=== PATIENT | female | born 1955 | race Asian ===

== ENCOUNTER 2022-03-18 10:17 | Outpatient (CLI) | payer MEDICARE, SELFPAY ==
[2022-03-18 11:00] LABS: Anion Gap 13 mmol/L (8-16); Blood Urea Nitrogen 14 mg/dL (7-17); Calcium 9.9 mg/dL (8.4-10.2); Carbon Dioxide 33 mmol/L (22-30); Chloride 100 mmol/L (98-107); Estimated Glomerular Filt Rate > 60; Glucose 134 mg/dL (65-110); Potassium 4.5 mmol/L (3.4-5.0); Sodium 146 mmol/L (137-145)
== END 2022-03-18 10:18 | disposition home or self-care (01) ==
LOC: ANHSURGERY 10:22
PROVIDERS: Anesthesiology; PCP Internal Medicine; Visit Provider Obstetrics & Gynecology
DX: Z79.899 Other long term (current) drug therapy (principal); Z01.818 Encounter for other preprocedural examination
CPT/HCPCS: 36415; 80048

== ENCOUNTER 2022-03-24 01:53 | Day surgery (SDC) | payer MEDICARE, SELFPAY ==
[2022-03-16 08:27] VITALS: BMI 19.5
--- NOTE | 2022-03-16 08:50 | PC.NURSE ---
PRE-OP INSTRUCTIONS, PLEASE READ CAREFULLY Report to the Outpatient Waiting Room, entrance under the green pavilion located off [facility], at time _0900_ on date _03/24/22_. OR Time: _1100_. - You and your visitor will be asked to self-screen and do not enter if you have any COVID symptoms. - Only one visitor and NO children visitors are allowed at this time. - The patient visitor is requested to leave or wait in car when not with patient due to restrictions. - A mask is required within the hospital. Patients may have clear liquids (water, carbonated beverages, clear teas, apple juice) until 3 hours prior to surgery (0800 AM) with a maximum of 20 ounces. - No food from midnight until time of surgery Take the following medications with a SIP of water the morning of surgery: _EUTHYROX_ Medications to discontinue per physician _VITAMINS AND SUPPLEMENTS 3 DAYS PRIOR TO SURGERY, Date to take last dose 03/20/22_ Please no make-up, nail yoruba, hairspray, perfume, deodorant, or body powder the day of surgery. No jewelry (including any body piercings) or valuables the day of surgery, leave them at home. Please take a shower or bath the night before, or the morning of, surgery with an antibacterial soap. Wear comfortable, loose fitting clothing. - Jewelry must be removed prior to entering the operating room. Rings and piercings that are not removed may be cut off. - The hospital will not accept responsibility for valuables. - Please leave all valuables, including medications, at home the day of surgery. If you are going home after surgery, a licensed dray driver must drive you home. - NO public transportation without another adult. - We recommend that an adult stay with you for 24 hours following discharge. - We also recommend that you do not drive, make important decision, drink alcoholic beverages, or take any drugs that were not prescribed by your health care provider for at least 24 hours after your discharge time. Follow any additional instructions given to you from your surgeon. If you or anyone in your household have experienced Covid symptoms in the past week, please notify your surgeon or the nurse liaison at the phone number below for possible testing. Telephone instructions given to ___PT and asked if any additional questions and then verbalized understanding. Patient advised to call surgeon office or pre surgery nurse liaison [phone] if any additional questions.
--- NOTE | 2022-03-24 08:04 | PM.IMHP ---
H&P: HPI History of Present Illness Date/Time: 03/24/22 08:04 66-year-old female presents for evaluation of thickened endometrial cavity noted on ultrasound. Ultrasound itself was ordered due to enlarged uterus, and incidentally and 7 8mm thickness was noted which was also irregular in texture. She has been on tamoxifen for breast cancer for past 7 years and has had no bleeding. Continued expected management with ultrasounds versus tissue sampling was discussed, and agreed with hysteroscopy and tissue sampling. Chief Complaint: Endometrial hypertrophy on ultrasound Review of Systems Review of Systems: All systems reviewed & are unremarkable except as noted in HPI and below PMFSH Past Medical History Medical History Breast cancer High cholesterol Hypothyroidism Surgical History Surgical History History of mastectomy right breast Family History Family History Father Diabetes mellitus Social History Social History Smoking status: Never smoker Second hand tobacco smoke exposure: No Alcohol intake: never Substance use: never Substance use type: does not use Living arrangements: with family Additional living arrangements comments: Gender identity (if verbalized by the patient): Female Sexual Orientation (if Verbalized by the Patient): Straight or Heterosexual Spiritual care concerns: No Meds Home Medications and Allergies Home Medications Medication Instructions Recorded Confirmed Type aspirin 81 mg tablet,delayed 81 mg PO DAILY 11/08/21 03/16/22 History release denosumab 60 mg/mL subcutaneous 60 mg subcut [id number] 11/08/21 03/16/22 History syringe (Prolia) fenofibrate nanocrystallized 48 mg 48 mg PO DAILY 11/08/21 03/16/22 History tablet levothyroxine 50 mcg tablet 50 mcg PO DAILY 11/08/21 03/16/22 History (Euthyrox) tamoxifen 20 mg tablet 20 mg PO DAILY 11/08/21 03/16/22 History ascorbic acid (vitamin C) 1,000 mg 1 g PO QAM 03/16/22 03/16/22 History tablet (Vitamin C) calcium carbonate 600 mg-vitamin 1 tablet PO DAILY 03/16/22 03/16/22 History D3 5 mcg (200 unit) tablet cholecalciferol (vitamin D3) 50 50 mcg PO QAM 03/16/22 03/16/22 History mcg (2,000 unit) tablet hydrochlorothiazide 25 mg tablet 25 mg QAM 03/16/22 03/16/22 History magnesium 250 mg tablet 250 mg PO EVERY OTHER DAY 03/16/22 03/16/22 History omega 7-dfs-pqa-fish oil 1,000 mg 1 cap PO QAM 03/16/22 03/16/22 History (120 mg-180 mg) capsule (Fish Oil) sodium di- and 1 tablet TID 03/16/22 03/16/22 History monophosphate-potassium phos monobasic 250 mg tablet (Phospha 250 Neutral) Allergies Allergy/AdvReac Type Severity Reaction Status Date / Time No Known Allergies Allergy Unverified 03/16/22 08:16 Exam Const: General: cooperative, healthy appearing and comfortable Resp: Effort & Inspection: normal respiratory effort Auscultation: clear to auscultation bilaterally Cardio: Rate: regular rate Rhythm: regular rhythm GI: Inspection: normal to inspection Auscultation: normal bowel sounds : External Female Exam: normal external appearance Speculum Exam - Vagina: normal appearance of the vagina Speculum Exam - Cervix: normal appearance of the cervix Bimanual exam- vagina & uterus: enlarged (Eight week size) Bimanual Exam- Adnexa, other: normal adnexae Assessment and Plan Assessment and plan (1) Endometrial thickening on ultrasound: Code(s): R93.89 - Abnormal findings on diagnostic imaging of other specified body structures Status: Acute Assessment and Plan: Hysteroscopy with uterine curettings
--- NOTE | 2022-03-24 08:07 | WPDHPUPDATE1 ---
History and Physical Update Update Date/Time: 03/24/22 08:07 History and Physical has been reviewed, including an updated exam of the patient. There are NO changes in the patient's condition. Risks, benefits, and alternatives have been discussed and questions answered. Patient agrees to proceed with procedure.
[2022-03-24 08:57] VITALS: BP 157/73; PULSE 81; RESP 16; TEMP 37.2; O2SAT 100
[2022-03-24] MEDS: ACETAMINOPHEN 500 MG TABLET 1000 MG PO (09:26)
[2022-03-24] MEDS: LACTATED RINGERS 1,000 ML 30 ML IV CONT (09:34)
--- NOTE | 2022-03-24 10:14 | WPDANESEPPF ---
Anes - Initial Pre Proc Eval Procedure: Operation Date: 03/24/22 11:00 Proposed Procedures p Hysteroscopy Dilation and Curettage - Matthieu Daniel MD Date/Time: 03/24/22 10:14 Surgeon: Matthieu Daniel MD Pre Op Diagnosis: Endometrial thickening Patient Data Age: 66 Gender: F Height: 1.6 m Weight: 50.5 kg Last Vital Signs Temp 37.2 C 03/24/22 08:57 Pulse 81 03/24/22 08:57 Resp 16 03/24/22 08:57 BP 157/73 H 03/24/22 08:57 Pulse Ox 100 03/24/22 08:57 O2 Del Method Room Air 03/24/22 08:57 Allergies Allergy/AdvReac Type Severity Reaction Status Date / Time No Known Allergies Allergy Unverified 03/24/22 09:14 Home Medications Medication Instructions Recorded Confirmed Type aspirin 81 mg tablet,delayed 81 mg PO DAILY 11/08/21 03/24/22 History release denosumab 60 mg/mL subcutaneous 60 mg subcut [id number] 11/08/21 03/24/22 History syringe (Prolia) fenofibrate nanocrystallized 48 mg 48 mg PO DAILY 11/08/21 03/24/22 History tablet levothyroxine 50 mcg tablet 50 mcg PO DAILY 11/08/21 03/24/22 History (Euthyrox) tamoxifen 20 mg tablet 20 mg PO DAILY 11/08/21 03/24/22 History ascorbic acid (vitamin C) 1,000 mg 1 g PO QAM 03/16/22 03/24/22 History tablet (Vitamin C) calcium carbonate 600 mg-vitamin 1 tablet PO DAILY 03/16/22 03/24/22 History D3 5 mcg (200 unit) tablet cholecalciferol (vitamin D3) 50 50 mcg PO QAM 03/16/22 03/24/22 History mcg (2,000 unit) tablet hydrochlorothiazide 25 mg tablet 25 mg QAM 03/16/22 03/24/22 History magnesium 250 mg tablet 250 mg PO EVERY OTHER DAY 03/16/22 03/24/22 History omega 1-vtk-tpi-fish oil 1,000 mg 1 cap PO QAM 03/16/22 03/24/22 History (120 mg-180 mg) capsule (Fish Oil) sodium di- and 1 tablet TID 03/16/22 03/24/22 History monophosphate-potassium phos monobasic 250 mg tablet (Phospha 250 Neutral) Patient hx anesthesia problems: none Family hx anesthesia problems: none Results Review: All pre-operative results and documents have been reviewed as part of the pre-operative evaluation. [facility] Past Medical History Medical History Breast cancer High cholesterol Hypothyroidism Surgical History Surgical History History of mastectomy right breast Family History Family History Father Diabetes mellitus Social History Social History Smoking status: Never smoker Second hand tobacco smoke exposure: No Alcohol intake: never Substance use: never Substance use type: does not use Living arrangements: with family Additional living arrangements comments: Gender identity (if verbalized by the patient): Female Sexual Orientation (if Verbalized by the Patient): Straight or Heterosexual Spiritual care concerns: No Anes - Eval Final PreProcedure Day of Procedure 03/24/22 10:14 Patient weight: normal Heart: regular rate and rhythm Lungs: clear to auscultation Airway: Mallampati scale class II Neurological: alert and oriented Last oral intake: >/= 8 hours ASA classification: III Emergent: no Anesthetic plan: proceed Anesthesia type and monitoring: general GIVS and standard monitoring Results Review: All pre-operative results and documents have been reviewed as part of the pre-operative evaluation. Informed Consent: The patient's anesthetic plan and its attendant risks and benefits were discussed with the patient/family/POA. Questions were solicited and answers provided to the satisfaction of the patient/family/POA.
[2022-03-24 10:50] VITALS: BP 142/72; PULSE 85; RESP 14; O2SAT 97
[2022-03-24 11:19] VITALS: BP 153/71; PULSE 75; RESP 16
[2022-03-24 11:42] VITALS: BP 150/71; PULSE 66; RESP 16
[2022-03-24 11:58] VITALS: BP 150/71; PULSE 66; RESP 16
--- NOTE | 2022-03-24 13:24 | W.PM.PROC2 ---
Procedure Note - Detailed Date of Procedure 03/24/22 Pre-op Diagnosis Endometrial thickening Post-op Diagnosis Same Procedure Performed Hysteroscopy with uterine curettings Surgeon Matthieu Daniel MD Anesthesia MAC Findings Vagina atrophic cervix stenotic. Once the scope was placed in the uterine cavity atrophy was noted throughout with small for polyp in the posterior uterine wall noted. Description of Procedure Patient was prepped in usual manner for this procedure. Cervix was dilated though stenotic to allow the hysteroscope to place once this was done atrophic cavity is noted throughout with small polyp on the posterior wall. Curettings were then obtained and the scope was placed with the area of question in the charge account identification clerk her wall removed with the endometrial sampling. At this point the procedure was considered terminated the patient was sent to recovery room in stable condition. Estimated Blood Loss -10.0 Urine Output -200.0 Drains No Packing No Pathology Yes Complications No immediate complications Condition Stable Disposition PACU [facility] Billing Surgery - Charge Forward: Surgery Billing
== END 2022-03-24 12:00 | disposition home or self-care (01) ==
PROVIDERS: PCP Internal Medicine; Visit Provider Obstetrics & Gynecology
PROC: 0U5B8ZZ Destruction of Endometrium, Via Natural or Artificial Opening Endoscopic (ICD-10-PCS; CPT 58563; principal; 2022-03-24 11:00)
DX: N84.0 Polyp of corpus uteri (principal); N88.2 Stricture and stenosis of cervix uteri; Z85.3 Personal history of malignant neoplasm of breast; E03.9 Hypothyroidism, unspecified; E78.00 Pure hypercholesterolemia, unspecified; Z90.11 Acquired absence of right breast and nipple; Z79.82 Long term (current) use of aspirin; Z79.810 Long term (current) use of selective estrogen receptor modulators (SERMs)
CPT/HCPCS: 58558; 36415; 80048; 88305; A9270; J2250; J2704; J3010; J7030; J7120

== ENCOUNTER 2024-08-14 13:46 | Outpatient (CLI) | payer MEDICARE, SELFPAY ==
--- NOTE | ~2024-08-14 | DEXA_ITS ---
Bone Density Report Name: LIZBETH RODRIGUEZ Age: 68 Sex: Female Ethnicity: White Date of : 1955 Indication: postmenopausal; screening for osteoporosis; height loss; cancer; Referring Provider: MUKESH GARCIA Study: Bone densitometry was performed. Exam Date: August 14, 2024 Accession number: [id number] Bone Density: Region BMD T-score Z-score Classification AP Spine(L1-L4) 0.652 -3.6 -1.6 Osteoporosis Femoral Neck (Left) 0.572 -2.5 -0.8 Osteoporosis Total Hip (Left) 0.723 -1.8 -0.4 Osteopenia Femoral Neck (Right) 0.546 -2.7 -1.0 Osteoporosis Total Hip (Right) 0.668 -2.2 -0.8 Osteopenia Total Hip Mean 0.695 -2.0 -0.6 Osteopenia World Health Organization criteria for BMD impression classify patients as: Normal (T-score at or above -1.0), Osteopenia (T-score between -1.0 and -2.5), or Osteoporosis (T-score at or below -2.5). 10-year Fracture Risk: FRAX not reported because: Some T-score for Spine Total or Hip Total or Femoral Neck at or below -2.5 Treated for osteoporosis Clinical Information Provided by Patient: Is being treated for osteoporosis Has used the following medications: Fosamax (i.e. alendronate), Prolia (i.e. denosumab) Has the following medical conditions: Cancer Patient maximum height was 63 Menopause Age: 52 Does not regularly consume dairy products Drinks caffeinated beverages Onset of menses at age 12 Number of children 0 Impression: The patient has osteoporosis, based on the Total Spine T-score. Discussion: It is important to ask patients whether they are taking their medications and to encourage continued and appropriate compliance with their osteoporosis therapies to reduce fracture risk. It is also important to review their risk factors and encourage appropriate calcium and vitamin D intakes, exercise, fall prevention and other lifestyle measures. Follow-Up: Consider a repeat BMD and Vertebral Fracture Assessment (VFA) exam in 2 years or sooner if medically necessary, to reassess this patient's status. Reported by: JACOB on 08/14/2024 2:12:00 PM. Reviewed, dictated and finalized at location [facility]
== END 2024-08-14 13:47 | disposition home or self-care (01) ==
LOC: ANHIMG 13:48
PROVIDERS: PCP Internal Medicine; Visit Provider Internal Medicine
DX: M81.0 Age-related osteoporosis without current pathological fracture (principal); M85.89 Other specified disorders of bone density and structure, multiple sites
CPT/HCPCS: 77080

== ENCOUNTER 2024-09-23 10:10 | Outpatient (CLI) | payer MEDICARE, SELFPAY ==
--- NOTE | ~2024-09-23 | XR_ITS ---
3 VIEWS THORACIC SPINE Ordering provider: Gerardo Malin MD History: . M81.0 - Age-related osteoporosis without current patholog... . Comparison: None. FINDINGS: VERTEBRAL BODIES: Normal height and alignment. No visible fracture or subluxation. DISK SPACES: Normal. SOFT TISSUES: Normal. IMPRESSION: No acute osseous abnormality of the thoracic spine. Reviewed, dictated and finalized at location A.
[2024-09-23 11:11] LABS: Alanine Aminotransferase 26 U/L (6-35); Albumin Level 4.6 g/dL (3.5-5.1); Alkaline Phosphatase 47 U/L (38-126); Anion Gap 13 mmol/L (4-12); Aspartate Amino Transferase 27 U/L (14-36); Bilirubin,Total 0.6 mg/dL (0.2-1.3); Blood Urea Nitrogen 12 mg/dL (7-17); Calcium 9.6 mg/dL (8.4-10.2); Carbon Dioxide 26 mmol/L (22-30); Chloride 103 mmol/L (98-107); Estimated Glomerular Filt Rate > 60; Glucose 96 mg/dL (65-110); Phosphorus 3.8 mg/dL (2.5-4.5); Potassium 3.8 mmol/L (3.4-5.0); Sodium 142 mmol/L (137-145)
[2024-09-23 11:22] LABS: Parathyroid Intact 19.9 pg/mL (14.5-75.2)
[2024-09-23 11:26] LABS: Vitamin D 25 Hydroxy 62.3 ng/mL
--- OUTSIDE RECORDS SUMMARY | 2024-09-23 11:54 | XMS_ITS | Clinical Summary ---
Author Organization [facility] Address [address] [place] [address] Care Team Providers Care Watershed Engineer Name Role Phone Rufus Teixeira MD Primary Care Provide r Allergies No known active allergies Medications calcium carbonate-vitamin D3 1,500 mg (600mg elemental) -800 unit per tablet daily. Acti ve timzf-8-gpy-epa-dp a-fish oil 1,050-1,200 mg capsule daily. Active magnesium oxide 500 mg capsule 2 times daily. Active multivitamin tabletIndications: Vitamin Deficiency Prevention daily. Active pravastatin (PRAVACHOL) 20 mg tablet 018 Active vitamin B complex capsule daily. Active ergocalciferol (VITAMIN D) 50,000 unit capsule Take 1 capsule (50,000 Units total) by mouth once a week 12 capsule 019 Active Additional Information Patient not taking.Reported on 09/22/2022 aspirin 81 mg enteric coated tablet daily Active influenza quadrivalent 5789-4032 (FLULAVAL,FLUARIX) 60 mcg (15 mcg x 4)/0.5 mL syringe Fluarix Quad 5678-3533 (PF) 60 mcg (15 mcg x 4)/0.5 mL IM syringe Active hydroCHLOROthiazid e (HYDRODIURIL) 25 mg tablet hydrochlorothiazide 25 mg tablet TAKE 1 TABLET BY MOUTH ONCE DAILY IN THE MORNING FOR 30 DAYS Active levothyroxine (SYNTHROID) 50 mcg tablet levothyroxine 50 mcg tablet TAKE 1 TABLET BY MOUTH ONCE DAILY IN THE MORNING FOR 30 DAYS Active fenofibrate nanocrystallized (TRICOR) 48 mg tablet fenofibrate nanocrystallized 48 mg tablet Active influenza quadrivalent (Flublok Quad , PF,) 180 mcg (45 mcg x 4)/0.5 mL syringe Flublok Quad (PF) 180 mcg (45 mcg x 4)/0.5 mL IM syringe Active vitamin B complex with folic acid tablet Take by mouth 019 Active sodium phosphate - potassium phosphate (K-PHOS NEUTRAL) 250 mg tablet 250 mg 4 (four) times a day Active denosumab (Prolia) 60 mg/mL syringe Inject 1 mL as needed by subcutaneous route in the morning for 1 day. 021 Active ZINC SULFATE ORAL Take 1 capsule every day by oral route. 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, estrogen receptor positive (HCC) Take 1 tablet by mouth once daily 90 tablet 3 024 2024 Discont inued(R eorder) Active Problems Problem Noted Date Diagnosed Date Encounter for follow-up surveillance of breast c ancer 09/21/2022 ER+ (estrogen receptor positive status) 09/22/19 23 Selective estrogen receptor modulator (SERM) adm inistered 09/21/2022 Carcinoma of central portion of right breast in female, estrogen receptor positive 09/21/2015 Surgical History Surgery Date Site/Laterality Comments US UNLISTED PROCEDURE LYMPH SYSTEM 08/25/2015 N/A Family History Relation Name Status Comments Father Mother Social History Tobacco Use Types Packs/Day Years Used Date Smoking Tobacco: Never Smokeless Tobacco: Never Comments Unknown Sex and Gender Information Value Date Recorded Sex Assigned at Not on file Legal Sex Female 7:27 AM MANAGER TEST Gender Identity Not on file Sexual Orientation Not on file Obstetrics History Last Filed Vital Signs Vital Sign Reading Time Taken Comments Blood Pressure 164/91 09/28/2023 2:44 PM CDT Pulse 113 09/28/2023 2:44 PM CDT Temperature 36.5 C (97.7 F) 09/28/2023 2:44 PM CDT Respiratory Rate 18 09/28/2023 2:44 PM CDT Oxygen Saturation 96% 09/28/2023 2:44 PM CDT Inhaled Oxygen Concentration - - Weight 54.3 kg (119 lb 9.6 oz) 09/28/2023 2:44 P M CDT Height 153.8 cm (5' 0.55 ) 09/23/2021 12:[address] Body Mass Index 22.93 09/23/2021 12:50 PM MANAGER TEST Plan of Treatment Health Maintenance Due Date Last Done Comments Colon Cancer Screening-Colonoscopy 1955 Depression Screening 1955 Fall Risk Assessment 1955 DTaP/Tdap/Td Vaccine (1 - Tdap) 12/03/1966 Hepatitis B Screening 12/03/1973 Zoster Vaccine (1 of 2) 12/03/1974 Breast Cancer Screening-Mammogram 07/27/2016 016 Osteoporosis Screening-Bone Density Scan 10/13/2018 10/13/2016 Well Visit 65+ 12/03/2020 Covid-19 Vaccine (3 - Modern a risk series) 08/09/2021 07/12/2021, 10/30/2020, 10/02/2020 Influenza Vaccine (#1) 2024 , 04/18/2021, 05/01/2020, Additional history exists Hepatitis C Screening Completed 08/25/2015 Pneumococcal vaccine 65+ Completed 08/10/2022, 02/14 Procedures Procedure Name Priority Date/Time Associated Diagnosis Comments BONE MINERAL DENSITY 10/13/2016 SERUM HEPATITIS C AB Routine 08/25/2015 7:00 AM MANAGER TEST DIAGNOSTIC MAMMOGRAM BILATERAL W ADIN Routine 07/27/2015 1:39 PM MANAGER TEST from Last 3 Months or Most Recently Relevant to Health Maintenance Results * BONE MINERAL DENSITY (10/13/2016) Anatomical Region Laterality Modality Radiographic Kaci ging Narrative 10/13/2016 Ordered by an unspecified provider. Historical Provider MD HURLEY DXA PROCEDURES Final Result * Serum Hepatitis C ab (08/25/2015 7:00 AM MANAGER TEST) HCV ab Negative NEG HISTORICAL RESULTS Serum 08/25/2015 7:00 AM MANAGER TEST Narrative HISTORICAL RESULTS - 08/26/2015 4:40 AM MANAGER TEST Interpretive Data If confirmation is required, call Laboratory Customer Service to request sample to be sent to [facility] for Hepatitis C Virus (HCV) RNA Detection and Quantitation by Real-Time Reverse Fabricator Special Items-PCR (RT-PCR). Current interpretive data was last revised on 2011 Historical Provider LAB BLOOD ORDERABLES Graciela l Result HISTORICAL RESULTS * Diagnostic Mammogram Bilateral W Adin (07/27/2015 1:39 PM MANAGER TEST) Anatomical Region Laterality Modality Breast Bilateral Mammography 07/27/2015 1:39 PM MANAGER TEST Narrative 07/27/2015 3:25 PM MANAGER TEST ZAINAB SHARIF M.D. DM CHRISTINA, FINAL REPORT The radiology attending physician has personally reviewed this study, and has reviewed and/or edited this written report and agrees with it. ACC# Date Time Exam [id number] Jul 27, 2015 13:39:00 [facility] [address] Diag Mammogram Bilateral Technologist(s): Aretha Massey; ; [id number] Jul 27, 2015 13:48:00 [facility] 61714 Breast US unilateral, ltd R [id number] Jul 27, 2015 13:39:00 [facility] 51865 Dig Breast Adin Angelo ACC# Date Time Exam [id number] Jul 27, 2015 13:39:00 [facility] 24443 Diag Mammogram Bilateral Technologist(s): Aretha Massey; ; [id number] Jul 27, 2015 13:48:00 [facility] [address]4501 Breast US unilateral, ltd R [id number] Jul 27, 2015 13:39:00 [facility] 89915 Dig Breast Adin Angelo EXAMINATION: BILATERAL FULL FIELD DIGITAL DIAGNOSTIC MAMMOGRAM, DIGITAL BILATERAL BREAST TOMOSYNTHESIS, AND RIGHT BREAST SONOGRAM A full field digital mammogram was performed. Computer Aided Detection was performed with [employer] 1.3 version 9.3. HISTORY: 59-year-old woman with a large palpable mass in the right breast with overlying skin discoloration. The mass has been present for over 2 years according to patient. MAMMOGRAM TECHNIQUE: Bilateral full Field digital diagnostic mammogram, digital bilateral breast tomosynthesis. A full field digital mammogram was performed. Computer Aided Detection was performed with [employer] 1.3 version 9.3. COMPARISON: No priors available. BREAST PARENCHYMAL COMPOSITION: The breasts are heterogeneously dense, which may obscure small masses. MAMMOGRAM FINDINGS: There is a >7cm irregular, high-density mass occupying almost the entire upper central right breast. There is associated architectural distortion, extensive fine pleomorphic calcifications and overlying skin thickening. There is no suspicious abnormality identified within the left breast. SONOGRAM FINDINGS: Directed sonogram of the palpable abnormality within the right breast was performed. There is an irregular shaped complex solid mass with both solid and cystic components. A precise measurement is difficult. Approximate size of this mass is 6 x 7 x 7 centimeters with vascular flow identified on color Doppler. There is overlying skin thickening and discoloration. This mass occupies a large volume of the upper half of the right breast. Directed sonogram of the right axilla demonstrates 2 lymph nodes. One of the nodes appears morphologically normal and the other has diffuse cortical thickening < 3mm, which is benign by imaging criteria. However given the size of the primary breast mass the negative predictive value of axillary US is limited. Directed physical examination of the area of concern demonstrates a large hard palpable abnormality which is visible to naked eye. There is skin thickening and discoloration overlying the mass. IMPRESSION: Locally advanced breast cancer with probable skin invasion. Normal axillary lymph nodes by imaging criteria (see discussion above). OVERALL FINAL ASSESSMENT: BI-RADS Category 5: Highly suggestive of malignancy. The above findings and recommendations were discussed with the patient at the conclusion of the examination and were subsequently discussed with the referring physician, Dr. Fani Velez, after completion of the imaging. The patient was returned to Dr. Garcia clinic on completion of the exam, further workup and biopsy to be obtained by the clinical service. :: Requested By: Dictated By: DM CHRISTINA, on Jul 27 2015 2:36P This document has been electronically signed by: ZAINAB SHARIF M.D. on Jul 27 2015 3:25P [id number] Procedure Note Provider, MD Sharla - 11/20/2016 ZAINAB SHARIF M.D. DM CHRISTINA, FINAL REPORT The radiology attending physician has personally reviewed this study, and has reviewed and/or edited this written report and agrees with it. ACC# Date Time Exam [id number] Jul 27, 2015 13:39:00 [facility] [address]2506 Diag Mammogram Bilateral Technologist(s): Aretha Massey; ; [id number] Jul 27, 2015 13:48:00 C 27002 Breast US unilateral, ltd R [id number] Jul 27, 2015 13:39:00 [facility] 11774 Dig Breast Adin Angelo ACC# Date Time Exam [id number] Jul 27, 2015 13:39:00 C 99412 Diag Mammogram Bilateral Technologist(s): Aretha Massey; ; [id number] Jul 27, 2015 13:48:00 C 06322 Breast US unilateral, ltd R [id number] Jul 27, 2015 13:39:00 C 71497 Dig Breast Adin Angelo EXAMINATION: BILATERAL FULL FIELD DIGITAL DIAGNOSTIC MAMMOGRAM, DIGITAL BILATERAL BREAST TOMOSYNTHESIS, AND RIGHT BREAST SONOGRAM A full field digital mammogram was performed. Computer Aided Detection was performed with [employer] 1.3 version 9.3. HISTORY: 59-year-old woman with a large palpable mass in the right breast with overlying skin discoloration. The mass has been present for over 2 years according to patient. MAMMOGRAM TECHNIQUE: Bilateral full Field digital diagnostic mammogram, digital bilateral breast tomosynthesis. A full field digital mammogram was performed. Computer Aided Detection was performed with [employer] 1.3 version 9.3. COMPARISON: No priors available. BREAST PARENCHYMAL COMPOSITION: The breasts are heterogeneously dense, which may obscure small masses. MAMMOGRAM FINDINGS: There is a >7cm irregular, high-density mass occupying almost the entire upper central right breast. There is associated architectural distortion, extensive fine pleomorphic calcifications and overlying skin thickening. There is no suspicious abnormality identified within the left breast. SONOGRAM FINDINGS: Directed sonogram of the palpable abnormality within the right breast was performed. There is an irregular shaped complex solid mass with both solid and cystic components. A precise measurement is difficult. Approximate size of this mass is 6 x 7 x 7 centimeters with vascular flow identified on color Doppler. There is overlying skin thickening and discoloration. This mass occupies a large volume of the upper half of the right breast. Directed sonogram of the right axilla demonstrates 2 lymph nodes. One of the nodes appears morphologically normal and the other has diffuse cortical thickening < 3mm, which is benign by imaging criteria. However given the size of the primary breast mass the negative predictive value of axillary US is limited. Directed physical examination of the area of concern demonstrates a large hard palpable abnormality which is visible to naked eye. There is skin thickening and discoloration overlying the mass. IMPRESSION: Locally advanced breast cancer with probable skin invasion. Normal axillary lymph nodes by imaging criteria (see discussion above). OVERALL FINAL ASSESSMENT: BI-RADS Category 5: Highly suggestive of malignancy. The above findings and recommendations were discussed with the patient at the conclusion of the examination and were subsequently discussed with the referring physician, Dr. Fani Velez, after completion of the imaging. The patient was returned to Dr. Garcia clinic on completion of the exam, further workup and biopsy to be obtained by the clinical service. :: Requested By: Dictated By: DM CHRISTINA on Jul 27 2015 2:36P This document has been electronically signed by: ZAINAB SHARIF M.D. on Jul 27 2015 3:25P [id number] us Historical Provider MD HURLEY MAMMO PROCEDURES Graciela l Result from Last 3 Months or Most Recently Relevant to Health Maintenance Insurance MEDICARE SOLUTIONS [facility] MEDIC[facility] Address: [address] [address] [place] [address] [facility] MEDICAID [facility] MEDICARE SOLUTIONS [facility] MEDIC[facility] Address: [facility] [address] [place] [address] Care Teams Watershed Engineer Relationship Specialty Start Date End Date Rufus Teixeira MD [address] [address] PCP - General Internal Medicine 03/22/18
--- OUTSIDE RECORDS SUMMARY | 2024-09-23 11:54 | XMS_ITS | Clinical Summary ---
Author Organization [facility] Address [address] [place] [address] Phone Care Team Providers Care Soil Conservation Teacher Name Role Phone Unavailable Primary Care Provider Unavailabl e Allergies No known active allergies Medications denosumab (PROLIA) 60 mg/mL Syringe Inject 1 mL (60 mg) by subcutaneous injection every 6 months. 1 mL 09/06/2021 4:31 PM INDUSTRIAL CONTROLLER 2 Active denosumab (Prolia) 60 mg/mL Syringe Inject 1 mL (60 mg) by subcutaneous injection every six months. 1 mL 1 02/04/2022 11:00 AM CDT 2 Active denosumab (Prolia) 60 mg/mL Syringe Inject 1 mL (60 mg) by subcutaneous injection every 6 months. 1 mL 2 Active Social History Tobacco Use Types Packs/Day Years Used Date Smoking Tobacco: Never Assessed Comments Unknown Sex and Gender Information Value Date Recorded Sex Assigned at Not on file Legal Sex Female 7:39 AM CDT Gender Identity Not on file Sexual Orientation Not on file Plan of Treatment Health Maintenance Due Date Last Done Comments DTAP/TDAP/TD VACCINES (1 - Tdap) 12/03/1974 BREAST CANCER SCREENING 1995 COLORECTAL SCREENING 12/03/2000 Colorectal Cancer Screening 12/03/2000 FIT-DNA Q 3 years 12/03/2000 FIT/FOBT Q 1 year 12/03/2000 Flex Sig/CT Colonography Q 5 years 12/03/2000 PNEUMOCOCCAL VACCINE 50+ YEARS (1 of 1 - PCV) 12/04/19 06 ZOSTER VACCINE (1 of 2) 12/03/2005 OSTEOPOROSIS SCREENING 12/03/2020 INFLUENZA VACCINE (#1) 2024 RSV VACCINE (60+ or ) (1 - 1-dose 75+ series) 12/03/2030 Insurance RX [employer] RX Member Subscriber Plan / Payer (Ef fective for All Dates) Name:Mary Link Relation to Subscriber:Self Name:Mary Link Payer ID:Not on file Group ID:[id number] Type:RX Medicare Part D Address: [place]
--- OUTSIDE RECORDS SUMMARY | 2024-09-23 11:54 | XMS_ITS | Referral Summary ---
Author Organization [facility] Address [address] [place] [address] Care Team Providers Care Solid Propellant Processor Name Role Phone Rufus Teixeira MD Primary Care Provide r Allergies No known active allergies Medications calcium carbonate-vitamin D3 1,500 mg (600mg elemental) -800 unit per tablet daily. Acti ve asnkj-1-lhl-epa-dp a-fish oil 1,050-1,200 mg capsule daily. Active [...] enteric coated tablet daily Active influenza quadrivalent 1154-6076 (FLULAVAL,FLUARIX) 60 mcg (15 mcg x 4)/0.5 mL syringe Fluarix Quad 3900-7363 (PF) 60 mcg (15 mcg x 4)/0.5 [...] breast in female, estrogen receptor positive 09/21/2015 Social History Tobacco Use Types Packs/Day Years Used Date Smoking Tobacco: Never Smokeless Tobacco: Never Comments Unknown Sex and Gender Information Value Date Recorded Sex Assigned at Not on file Legal Sex Female 7:27 AM AIR CONTROL/ANTI AIR WARFARE OFFICER Gender Identity Not on file Sexual Orientation Not on file Last Filed Vital Signs Vital Sign Reading [...] Body Mass Index 22.93 09/23/2021 12:50 PM AIR CONTROL/ANTI AIR WARFARE OFFICER Plan of Treatment Not on file Procedures Procedure Name Priority Date/Time Associated Diagnosis Comments BONE MINERAL DENSITY 10/13/2016 SERUM HEPATITIS C AB Routine 08/25/2015 7:00 AM AIR CONTROL/ANTI AIR WARFARE OFFICER DIAGNOSTIC MAMMOGRAM BILATERAL W ADIN Routine 07/27/2015 1:39 PM AIR CONTROL/ANTI AIR WARFARE OFFICER from Last 3 Months or Most Recently Relevant to Health Maintenance Results * BONE MINERAL DENSITY (10/13/2016) Anatomical Region Laterality Modality Radiographic Kaci ging Narrative 10/13/2016 Ordered by an unspecified provider. Historical Provider MD HURLEY DXA PROCEDURES Final Result * Serum Hepatitis C ab (08/25/2015 7:00 AM AIR CONTROL/ANTI AIR WARFARE OFFICER) HCV ab Negative NEG HISTORICAL RESULTS Serum 08/25/2015 7:00 AM AIR CONTROL/ANTI AIR WARFARE OFFICER Narrative HISTORICAL RESULTS - 08/26/2015 4:40 AM AIR CONTROL/ANTI AIR WARFARE OFFICER Interpretive Data If confirmation is required, call Laboratory Customer Service to request sample to be sent to [facility] for Hepatitis C Virus (HCV) RNA Detection and Quantitation by Real-Time Reverse Print Shop Chief Clerk-PCR (RT-PCR). Current interpretive data was last revised on 2011 us Historical Provider LAB BLOOD ORDERABLES Graciela l Result HISTORICAL RESULTS * Diagnostic Mammogram Bilateral W Adin (07/27/2015 1:39 PM AIR CONTROL/ANTI AIR WARFARE OFFICER) Anatomical Region Laterality Modality Breast Bilateral Mammography 07/27/2015 1:39 PM AIR CONTROL/ANTI AIR WARFARE OFFICER Narrative 07/27/2015 3:25 PM AIR CONTROL/ANTI AIR WARFARE OFFICER ZAINAB SHARIF M.D. DM CARRI, FINAL REPORT The radiology attending physician has personally reviewed this study, and has reviewed and/or edited this written report and agrees with it. ACC# Date Time Exam [id number] Jul 27, 2015 13:39:00 [facility] [id number] Diag Mammogram Bilateral Technologist(s): Aretha Massey; ; [id number] Jul 27, 2015 13:48:00 [facility] 64429 Breast US unilateral, ltd R [id number] Jul 27, 2015 13:39:00 [facility] 14148 Dig Breast Adin Angelo ACC# Date Time Exam [id number] Jul 27, 2015 13:39:00 [facility] 84548 Diag Mammogram Bilateral Technologist(s): Aretha Massey; ; [id number] Jul 27, 2015 13:48:00 [facility] 07318 Breast US unilateral, ltd R [id number] Jul 27, 2015 13:39:00 [facility] 40107 Dig Breast Adin Angelo EXAMINATION: BILATERAL FULL FIELD DIGITAL DIAGNOSTIC MAMMOGRAM, DIGITAL BILATERAL BREAST TOMOSYNTHESIS, AND RIGHT BREAST SONOGRAM A full field digital mammogram was performed. Computer Aided Detection was performed with [employer] 1.3 version 9.3. HISTORY: 59-year-old woman with a large palpable mass in the right breast with overlying skin discoloration. The mass has been present for over 2 years according to patient. MAMMOGRAM TECHNIQUE: Bilateral full Field digital diagnostic mammogram, digital bilateral breast tomosynthesis. A full field digital mammogram was performed. Computer Aided Detection was performed with [employer], [employer] 1.3 version 9.3. COMPARISON: No priors available. [...] SHARIF M.D. on Jul 27 2015 3:25P [id number] Procedure Note Provider, MD Sharla - 11/20/2016 ZAINAB SHARIF M.D. DM CHRISTINA, FINAL REPORT The radiology attending physician has personally reviewed this study, and has reviewed and/or edited this written report and agrees with it. ACC# Date Time Exam [id number] Jul 27, 2015 13:39:00 [facility] 12796 Diag Mammogram Bilateral Technologist(s): Aretha Massey; ; [id number] Jul 27, 2015 13:48:00 [facility] 52751 Breast US unilateral, ltd R [id number] Jul 27, 2015 13:39:00 [facility] 00016 Dig Breast Adin Angelo ACC# Date Time Exam [id number] Jul 27, 2015 13:39:00 [facility] 54541 Diag Mammogram Bilateral Technologist(s): Aretha Massey; ; [id number] Jul 27, 2015 13:48:00 [facility] 34433 Breast US unilateral, ltd R [id number] Jul 27, 2015 13:39:00 [facility] 14145 Dig Breast Adin Angelo EXAMINATION: BILATERAL FULL FIELD DIGITAL DIAGNOSTIC MAMMOGRAM, DIGITAL BILATERAL BREAST TOMOSYNTHESIS, AND RIGHT BREAST SONOGRAM A full field digital mammogram was performed. Computer Aided Detection was performed with [employer].3 version 9.3. HISTORY: 59-year-old woman with a large palpable mass in the right breast with overlying skin discoloration. The mass has been present for over 2 years according to patient. MAMMOGRAM TECHNIQUE: Bilateral full Field digital diagnostic mammogram, digital bilateral breast tomosynthesis. A full field digital mammogram was performed. Computer Aided Detection was performed with [employer] 1.3 version 9.3. COMPARISON: No priors available. [...] SHARIF M.D. on Jul 27 2015 3:25P [id number] Historical Provider MD HURLEY MAMMO PROCEDURES Graciela l Result from Last 3 Months or Most Recently Relevant to Health Maintenance Insurance MEDICARE SOLUTIONS [facility] MEDICAID [facility] MEDICARE SOLUTIONS Care Teams Solid Propellant Processor Relationship Specialty Start Date End Date Rufus Teixeira MD [address] [address] PCP - General Internal Medicine 03/22/18
--- OUTSIDE RECORDS SUMMARY | 2024-09-23 11:54 | XMS_ITS | Encounter Summary ---
Author Organization [facility] Address [address] [place] [address] Phone Care Team Providers Care Building Mechanic Name Role Phone Rufus Teixeira MD Primary Care Provide r Encounter Details Date Type Department Care Team (Latest Contact Info) Description 02/18/2019 Orders Only [facility] Scanning, Provider Social History Tobacco Use Types Packs/Day Years Used Date Smoking Tobacco: Never Smokeless Tobacco: Never Comments Unknown Sex and Gender Information Value Date Recorded Sex Assigned at Not on file Legal Sex Female 7:27 AM LABORER TAN HOUSE Gender Identity Not on file Sexual Orientation Not on file documented as of this encounter Plan of Treatment Not on file documented as of this encounter Procedures Procedure Name Priority Date/Time Associated Diagnosis Comments SCAN - RADIOLOGY/IMAGING 02/18/2019 documented in this encounter Results * SCAN - RADIOLOGY/IMAGING (02/18/2019) Anatomical Region Laterality Modality Other us Provider Scanning Final Result documented in this encounter Visit Diagnoses Not on filedocumented in this encounter Care Teams Building Mechanic Relationship Specialty Start Date End Date Rufus Teixeira MD [address] [facility] [address] [place] [address] PCP - General Internal Medicine 03/22/18 documented as of this encounter
--- OUTSIDE RECORDS SUMMARY | 2024-09-23 11:54 | XMS_ITS | Encounter Summary ---
Author Organization [facility] Address [address] [place] [address] Phone Care Team Providers Care Accounting Administrative Assistant Name Role Phone Rufus Teixeira MD Primary Care Provide r Encounter Details Date Type Department Care Team (Latest Contact Info) Description 02/15/2019 Orders Only [facility] Scanning, Provider Social History Tobacco Use Types Packs/Day Years Used Date Smoking Tobacco: Never Smokeless Tobacco: Never Comments Unknown Sex and Gender Information Value Date Recorded Sex Assigned at Not on file Legal Sex Female 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 Gender Identity Not on file Sexual Orientation Not on file documented as of this encounter Plan of Treatment Not on file documented as of this encounter Procedures Procedure Name Priority Date/Time Associated Diagnosis Comments SCAN - RADIOLOGY/IMAGING 02/15/2019 documented in this encounter Results * SCAN - RADIOLOGY/IMAGING (02/15/2019) Anatomical Region Laterality Modality Other us Provider Scanning Final Result documented in this encounter Visit Diagnoses Not on filedocumented in this encounter Care Teams Accounting Administrative Assistant Relationship Specialty Start Date End Date Rufus Teixeira MD [address] [facility] [address] [place] [address] PCP - General Internal Medicine 03/22/18 documented as of this encounter
--- OUTSIDE RECORDS SUMMARY | 2024-09-23 11:55 | XMS_ITS | Patient Health Summary ---
Author Organization [facility] Address [address] [place] [address] Care Team Providers Care Data Engineer Name Role Phone Warner Bashir DO Primary Care Provider Note from [facility],non-owned Affiliates and Associated Physician Practices is amultiple site organization consisting of ambulatory clinics and hospital sitesin [place], [place], [place] and [place]. This disclosure is being madepursuant to the Care Everywhere program and may not contain all information available regarding this patient. Last updated 18.[facility] Allergies No known active allergies Medications * Be aware that medications may not be up to date on this document. Alwaysverify current medications with the patient. * levothyroxine (SYNTHROID) 88 MCG tablet(Started 05/07/2018) * pravastatin (PRAVACHOL) 20 MG tablet(Started 05/07/2018) * tamoxifen (NOLVADEX) 20 MG tablet(Started 05/07/2018) Active Problems Problem Noted Date Diagnosed Date Acquired hypothyroidism 05/23/2018 Social History Tobacco Use Types Packs/Day Years Used Date Smoking Tobacco: Never Smokeless Tobacco: Never Alcohol Use Standard Drinks/Week Comments No 0 (1 standard drink = 0.6 oz pur e alcohol) Sex and Gender Information Value Date Recorded Sex Assigned at Not on file Gender Identity Not on file Sexual Orientation Not on file Last Filed Vital Signs Vital Sign Reading Time Taken Comments Blood Pressure 145/92 05/22/2018 2:43 PM SOFTWARE APPLICATION TESTER Pulse 102 05/22/2018 2:43 PM SOFTWARE APPLICATION TESTER Temperature - - Respiratory Rate - - Oxygen Saturation - - Inhaled Oxygen Concentration - - Weight - - Height - - Body Mass Index - - Care Teams Data Engineer Relationship Specialty Start Date End Date Warner Bashir DO PCP - General 09/23/16
--- OUTSIDE RECORDS SUMMARY | 2024-09-23 11:55 | XMS_ITS | CONTINUITY OF CARE DOCUMENT ---
Author Name aris hurst Address Unknown Organization [facility] Address [address] [place] [address] Phone [phone] Care Team Providers Care Car Washer Name Role Phone Jaret PRICE, Jonathan Unavailable CALLIE HOLMAN MD Unavailable CALLIE HOLMAN MD Unavailable PROBLEMS Condition Status Date Provider Notes Hypertriglyceridemia active Jonathan Raygoza MD Fatigue active Jonathan Raygoza MD Breast cancer active Jonathan Raygoza MD HTN essential active Jonathan Raygoza MD Hyperlipidemia active Jonathan Raygoza MD Hypothyroidism active Jonathan Raygoza MD Tachycardia, unspecified active Jonathan blair MD Cardiology examination completed - Jonathan Raygoza MD ENCOUNTERS Date Type Provider Location Encounter Diag nosis - In-person encounter Office Visit Jonathan Raygoza MD [facility] HTN essentialHypertriglyceridemia - In-person encounter Office Visit Jonathan Raygoza MD [facility] - In-person encounter Office Visit Jonathan Raygoza MD [facility] Cardiology examinationBreast cancerFatig ue - In-person encounter Office Visit Jonathan Raygoza MD [facility] HTN essential - In-person encounter Office Visit Jonathan Raygoza MD [facility] Tachycardia, unspecifiedHypothyroidismHyperlipidemia VITAL SIGNS Date Observation Value Provider Body Mass Index (Ratio) 23.04 kg/m2 Fermin Raygoza MD blood pressure, cuff size regular Cy gabriel Limon blood pressure, diastolic 70 mm[Hg] Cy gabriel Limon blood pressure, systolic 122 mm[Hg] Heather Limon pulse rate 90 /min Isidra jon oxygen saturation, oximetry 96 % Isidra Limon respiratory rate E&M 16 /min Isidra Limon weight E&M 126 [lb_av] Isidra jon height E&M 62 [in_i] Isidra jon Body Mass Index (Ratio) 21.58 kg/m2 Fermin Raygoza MD pulse rate 89 /min Latha [facility] oxygen saturation, oximetry 98 % Latha Block blood pressure, diastolic 88 mm[Hg] Br ittany Block blood pressure, systolic 130 mm[Hg] Trice ttany Block weight E&M 118 [lb_av] Latha Block blood pressure, resting No Brit mary Block respiratory rate E&M 16 /min [facility] height E&M 62 [in_i] Latha Block Body Mass Index (Ratio) 23.77 kg/m2 Fermin Raygoza MD blood pressure, diastolic 80 mm[Hg] Tao fontaine Luke blood pressure, systolic 138 mm[Hg] Darlene Kinneyam oxygen saturation, oximetry 96 % [place] Luke respiratory rate E&M 16 /min [place] Luke pulse rate 99 /min Helene Luke weight E&M 130 [lb_av] [place] Luke height E&M 62 [in_i] Helene Luke Body Mass Index (Ratio) 23.04 kg/m2 Fermin Raygoza MD blood pressure, diastolic 88 mm[Hg] Da april Jannie blood pressure, systolic 136 mm[Hg] Dac ia Jannie oxygen saturation, oximetry 98 % Estrella Jannie respiratory rate E&M 16 /min Estrella V oss pulse rate 79 /min Estrella Jannie weight E&M 126 [lb_av] Estrella Jannie height E&M 62 [in_i] Estrella [place] Body Mass Index (Ratio) 23.41 kg/m2 Fermin Raygoza MD blood pressure, cuff size small Cy gabriel Limon blood pressure, diastolic 78 mm[Hg] Cy gabriel Limon blood pressure, systolic 140 mm[Hg] Heather poe Braxton oxygen saturation, oximetry 98 % Isidra Limon respiratory rate E&M 16 /min Isidra Limon pulse rate 89 /min Isidra Guradado l weight E&M 128 [lb_av] Isidra Marquezbel l height E&M 62 [in_i] Isidra Marquezbel l ALLERGIES No Known Drug Allergies RESULTS Date Observation Value Provider Reference Range Interpretation Location 5 lipoprotein, beta, serum, point, quantitative, calculated 101 mg/dL [facility] 0-99 High 5 very low density lipoproteins 32 mg/dL [facility] 5-40 5 HDL cholesterol, serum 54 mg/dL [facility] >39 5 triglyceride, serum, random 160 mg/dL [facility] 0-149 High 5 cholesterol, serum 187 mg/dL [facility] 541-179 2155/04/0 9 thyroid stimulating hormone, serum 4.240 u[IU]/mL [facility] 0.450-4.500 9 c-reactive protein, quantitative, serum 1.03 mg/L [facility] 0.00-3.00 9 lipoprotein, beta, serum, point, quantitative, calculated 63 mg/dL [facility] 0-99 9 very low density lipoproteins 43 mg/dL [facility] 5-40 High 9 HDL cholesterol, serum 47 mg/dL [facility] >39 9 triglyceride, serum, random 217 mg/dL [facility] 0-149 High cholesterol, serum 153 mg/dL [facility] 204-459 4050/04/0 9 calcium, serum 9.6 mg/dL [facility] 8.7-10.3 9 carbon dioxide, venous blood 23 mmol/L [facility] 20-29 9 chloride, serum 107 mmol/L [facility] 96-106 High 9 potassium, serum 4.1 mmol/L [facility] 3.5-5.2 9 sodium, serum 145 mmol/L [facility] 134-144 High urea nitrogen/creatinin e ratio, serum 21 [facility] 12-28 9 eGFR if 115 mL/min/{1. 73_m2} [facility] >59 9 eGFR if not 100 mL/min/{1. 73_m2} [facility] >59 9 creatinine, serum 0.57 mg/dL [facility] 0.57-1.00 9 urea nitrogen, blood 12 mg/dL [facility] 8[facility]27 9 blood glucose, random 94 mg/dL [facility] 65-99 9 platelet count 200 X10E3/UL [facility] [phone]/04/0 9 red blood cell distribution width 17.7 % [facility] 12.3-15.4 High mean corpuscular hemoglobin concentration, RBC 31.7 G/DL [facility] 31.5-35.7 9 mean corpuscular hemoglobin, RBC 25.5 pg [facility] 26.6-33.0 Low mean corpuscular volume, RBC 81 fL [facility] 79-97 9 hematocrit, blood 38.8 % [facility] 34.0-46.6 9 hemoglobin, blood 12.3 g/dL [facility] 11.1-15.9 9 erythrocyte (RBC) count 4.82 X10E6/UL [facility] 3.77-5.28 9 leukocyte count, blood 6.8 X10E3/UL [facility] 3.4-10.8 4 pro brain natriuretic peptide 17 pg/mL [facility] 0-287 4 D-dimer quantitative mcg/mL 0.26 MG/L FEU [facility] 0.00-0.49 4 thyroid stimulating hormone, serum 4.090 u[IU]/mL [facility] 0.450-4.500 4 erythrocyte sedimentation rate 2 mm/h [facility] 0-40 HISTORY OF MEDICATION USE Medication Status Instructions Dates Provider Indications Com ments HYDROCHLOROTHIAZIDE 25 MG ORAL TABLET active daily Isidra Limon FENOFIBRATE 48 MG ORAL TABLET active daily Isidra Limon VITAMIN D3 23417 UNIT ORAL TABLET active take 1 tab once weekly [facility] B COMPLEX ORAL TABLET active take 1 tab daily [facility] ASPIRIN ADULT LOW DOSE 81 MG ORAL TABLET DELAYED RELEASE active take [facility] MG ORAL TABLET active take 1 tab daily [facility] OMEGA-3/D-3 WELLNESS PACK 1 & 1000 GM & UNIT ORAL KIT active take 1 tab daily [facility] CALCIUM + D3 TABLET active take 1 tab daily [facility] MULTIVITAMIN ADULT ORAL TABLET active take 1 tab once daily [facility] TAMOXIFEN CITRATE 20 MG ORAL TABLET active TAke 1 tablet daily Isidra Limon PRAVASTATIN SODIUM 20 MG ORAL TABLET active Take 1 tablet daily Isidra Limon LEVO-T 50 MCG ORAL TABLET active take 1 tab daily Isidra Limon SOCIAL HISTORY Date Observation Value Provider social history E&M S moking History: P roger has never smoked. Jonathan Raygoza MD social history reviewed E&M revi ewed - no changes required Jonathan Raygoza MD smoking status Never smoker Isidra bishop social history E&M S moking History: Robbin duran has never smoked. Jonathan Raygoza MD social history reviewed E&M revi ewed - no changes required Jonathan Raygoza MD smoking status Never smoker Latha Van fidelina social history E&M S moking History: Robbin duran has never smoked. Jonathan Raygoza MD social history reviewed E&M revi ewed - no changes required Jonathan Raygoza MD smoking status Never smoker Helene stewart social history E&M S moking History: Robbin duran has never smoked. Jonathan Raygoza MD social history reviewed E&M revi ewed - no changes required Jonathan Raygoza MD smoking status Never smoker Estrella Valderrama number of grandchildren Jonathan Raygoza MD smoking status Never smoker Isidra Shelli bishop FAMILY HISTORY Family Member Condition First Degree Blood Relative No Known Fam manda History INSURANCE PROVIDERS Payer name Policy type / Coverage type [place] red green party ID UHC MEDICARE COMPLETE O Other [id number] [facility] Medicaid 2 [id number] ADVANCE DIRECTIVES Name Date DISCUSSED - NO DECISION MADE TREATMENT PLAN Date Name Performer Cardiology follow up : p er PCP Her updated medication list for this problem includes: Levo-t 50 Mcg Oral Tablet (Levothyroxine sodium) ..... Take 1 tab daily Jonathan Raygoza MD Cardiology follow up : o n pravastatin, fenofibrate Her updated medication list for this problem includes: Fenofibrate 48 Mg Oral Tablet (Fenofibrate) ..... Daily [place]-3/d-3 Wellness Pack 1 & 1000 Gm & Unit Oral Kit (Qvxkb-6-[id number] ethyl esters & d3) ..... Take 1 tab daily Pravastatin Sodium 20 Mg Oral Tablet (Pravastatin sodium) ..... Take 1 tablet daily Jonathan Raygoza MD Cardiology follow up : H er updated medication list for this problem includes: Hydrochlorothiazide 25 Mg Oral Tablet (Hydrochlorothiazide) ..... Daily Aspirin Adult Low Dose 81 Mg Oral Tablet Delayed Release (Aspirin) ..... Take 1 tab daily BP today: 122/70 P rior BP: 130/88 (04/29/2019) Jonathan Raygoza MD Cardiology follow up : H er updated medication list for this problem includes: Fenofibrate 48 Mg Oral Tablet (Fenofibrate) ..... Daily [place]-3/d-3 Wellness Pack 1 & 1000 Gm & Unit Oral Kit (Fkggd-8-vwvp ethyl esters & d3) ..... Take 1 tab daily Pravastatin Sodium 20 Mg Oral Tablet (Pravastatin sodium) ..... Take 1 tablet daily Jonathan Raygoza MD Cardiology follow up Jonathan blair MD Cardiology follow up Jonathan blair MD Cardiology: f marleny with PCP Deon ALEXANDER WNL Her updated medication list for this problem includes: Levothyroxine Sodium 88 Mcg Oral Tablet (Levothyroxine sodium) ..... Half a tablet daily Jonathan Raygoza MD Cardiology: a vg HR 89 on 30-day monitor. Jonathan Raygoza MD Cardiology Jonathan Marks Cardiology: B P on 24-hr monitor generally well controlled. p t has regular whitecoat HTN n o indication for BP med at this time. Jonathan Raygoza MD Cardiology: L ipids 10/22/18: CHOL 153, TG 217, HDL 47, LDL 63. Her updated medication list for this problem includes: [place]-3/d-3 Wellness Pack 1 & 1000 Gm & Unit Oral Kit (Wpeaf-3-affb ethyl esters & d3) ..... Take 1 tab daily Pravastatin Sodium 20 Mg Oral Tablet (Pravastatin sodium) ..... Take 1 tablet daily Jonathan Raygoza MD Cardiology: 1 -2x weekly in afternoons for 1-2 hours before abating. some associated palpitations. will monitoir for now. if worsens, will check 30-day monitor. Jonathan Raygoza MD Cardiology: B P on 24-hr monitor generally well contorlled. no indication for BP med at this time. Jonathan Raygoza MD Cardiology: h as been on tamoxifen for 3 years. Jonathan Raygoza MD Cardiology: cookie farmer with PCP Jonathan Ryagoza MD Cardiology: leann whiting lipid panel now. Her updated medication list for this problem includes: [place]-3/d-3 Wellness Pack 1 & 1000 Gm & Unit Oral Kit (Ibcfk-6-ikdg ethyl esters & d3) ..... Take 1 tab daily Pravastatin Sodium 20 Mg Oral Tablet (Pravastatin sodium) ..... Take 1 tablet daily Jonathan Raygoza MD Cardiology follow up : H er updated medication list for this problem includes: Levothyroxine Sodium 88 Mcg Oral Tablet (Levothyroxine sodium) ..... Half a tablet daily Jonathan Raygoza MD Cardiology follow up : H er updated medication list for this problem includes: Pravastatin Sodium 20 Mg Oral Tablet (Pravastatin sodium) ..... Take 1 tablet daily Jonathan Raygoza MD Cardiology follow up : m oderately elevated today, but reports her home BPs run in 120s. will check 24-hr ABPM and may start metoprolol succinate 25mg daily contingent on results. e cho revealed mildly impaiared LV relaxation with no valvular abnormalities and normal EF. Jonathan Raygoza MD Cardiology follow up : a vg HR 89 on 30-day monitor. 88 in office today. Jonathan Raygoza MD Cardiology New Patie nt :Will check thyroid panel. Her updated medication list for this problem includes: Levothyroxine Sodium 88 Mcg Oral Tablet (Levothyroxine sodium) ..... Half a tablet daily Jonathan Raygoza MD Cardiology New Patie nt : O rders: E KG (CPT-65961) C omplete Echo (CPT-51303) M obile Cardiac Tele (CPT-75104) P ROBNP, N TERMINAL ([id number]) D -DIMER, QUANTITATIVE (2936) T SH, 3RD GENERATION W/REFLEX TO FT4 (98299) S ED RATE BY MODIFIED WESTERGREN (809) Jonathan Raygoza MD Cardiology New Patie nt : H er updated medication list for this problem includes: Pravastatin Sodium 20 Mg Oral Tablet (Pravastatin sodium) ..... Take 1 tablet daily Jonathan Raygoza MD Date Name LIPID PANEL CARDIO CRP CBC (H/H, RBC, INDIC ES, WBC, PLT) BASIC METABOLIC PANE L W/EGFR TSH, 3RD GENERATION W/REFLEX TO FT4 LIPID PANEL Ambulatory BP SED RATE BY MODIFIED WESTERGREN TSH, 3RD GENERATION W/REFLEX TO FT4 D-DIMER, QUANTITATIV E PROBNP, N TERMINAL Mobile Cardiac Tele Complete Echo HISTORY OF PROCEDURES Procedure Date Procedure Name Provider Procedure Notes S tatus EKG Jonathan Raygoza MD complet ed Event Monitor Jonathan Raygoza MD comp leted Event Monitor Jonathan Raygoza MD comp leted EKG Jonathan Raygoza MD complet ed
--- OUTSIDE RECORDS SUMMARY | 2024-09-23 11:55 | XMS_ITS | Encounter Summary ---
Author Organization 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 Gender Identity Not on file Sexual Orientation Not on file documented as of this encounter Plan of Treatment Not on file documented as of this encounter Procedures Procedure Name Priority Date/Time Associated Diagnosis Comments SCAN - RADIOLOGY/IMAGING 11/21/2018 documented in this encounter Results * SCAN - RADIOLOGY/IMAGING (11/21/2018) Anatomical Region Laterality Modality Other us Provider Scanning Final Result documented in this encounter Visit Diagnoses Not on filedocumented in this encounter Care Teams Medical Donation Professional Relationship Specialty Start Date End Date Rufus Teixeira MD [address] [facility] [address] [place] [address] PCP - General Internal Medicine 03/22/18 documented as of this encounter
--- OUTSIDE RECORDS SUMMARY | 2024-09-23 11:55 | XMS_ITS | Data Portability ---
Author Organization [place] [facility], Main Office Address [address] [place] [address] Care Team Providers Care Scheduler Conveyor Name Role Phone CALLIE TEIXEIRA Primary Care Provider [phone] Assessment Encounter Date Assessment Date Assessment LastModified by Organization Details LastModified Time 06/26/2023 06/26/2023 02/02/2023: LDL 104 06/22/2023: AST 60H LDL 97 Not available 06/26/2023 14:30:35 10/25/2023 10/25/2023 02/02/2023: LDL 104 06/22/2023: AST 60H LDL 97 10/17/2023: Chol 216, TG 195, LDL 121 Gluc 110, AST 43 TSH 5.110H, FT4 1.15 Not available 10/18/2023 18:26:33 01/22/2024 01/22/2024 02/02/2023: LDL 104 06/22/2023: AST 60H LDL 97 10/17/2023: Chol 216, TG 195, LDL 121 Gluc 110, AST 43 TSH 5.110H, FT4 1.15 01/16/2024: Alb 4.6H, TP WNL Not available 01/17/2024 15:08:25 05/27/2024 05/27/2024 02/02/2023: LDL 104 06/22/2023: AST 60H LDL 97 10/17/2023: Chol 216, TG 195, LDL 121 Gluc 110, AST 43 TSH 5.110H, FT4 1.15 01/16/2024: Alb 4.6H, TP WNL 05/22/2024: K 3.2L, AST 69, Alb 4.7H, TP WNL Not available 05/27/2024 14:45:48 09/02/2024 09/02/2024 02/02/2023: LDL 104 06/22/2023: AST 60H LDL 97 10/17/2023: Chol 216, TG 195, LDL 121 Gluc 110, AST 43 TSH 5.110H, FT4 1.15 01/16/2024: Alb 4.6H, TP WNL 05/22/2024: K 3.2L, AST 69, Alb 4.7H, TP WNL 08/27/2024: HCT 45.8H SPEP: Neg Not available 09/02/2024 14:41:52 Plan of Treatment Reminders Order Date Submit Date Provider Last Modified By Organization Details Last Modified Time Details Appointments Any 15 2024 01:30P Job [email or web address] MD Not available Not available Not available Lab vitamin D, 25-hydrox y, total, serum [email or web address] [place] [address] (Lab), [address] [place], [address], 09/11/2024 09:52:22 lipid panel, serum 2024 025 [email or web address], [address], [place], [address], 09/02/2024 16:33:39 CMP, serum or plasma 2024 025 [email or web address], [address], [place], [address], 09/02/2024 16:33:40 CBC w/ auto diff 2024 025 [email or web address], [address], [place], [address], 09/02/2024 16:33:40 TSH, serum or plasma 2024 025 [email or web address], [address], [place], [address], 09/02/2024 16:33:41 T4, free, serum 2024 025 [email or web address], [address], [place], [address], 09/02/2024 16:33:42 protein electroph oresis panel, serum or plasma 2023 024 NELSON Not available 08/30/2024 14:10:14 protein electroph oresis, urine 2023 024 NELSON Not available 08/30/2024 14:10:15 lipid panel, serum 2023 024 NELSON Not available 08/30/2024 14:10:13 CMP, serum or plasma 2023 024 NELSON Not available 08/30/2024 14:10:17 CBC w/ auto diff 2023 024 NELSON Not available 08/30/2024 14:10:18 TSH, serum or plasma 2023 024 NELSON Not available 08/30/2024 14:10:21 T4, free, serum 2023 024 NELSON Not available 08/30/2024 14:10:19 potassium , serum or plasma 2023 024 NELSON Not available 06/03/2024 13:23:17 lipid panel, serum 2023 024 NELSON Not available 05/22/2024 15:15:05 CMP, serum or plasma 2023 024 NELSON Not available 05/22/2024 15:15:10 CBC w/ auto diff 2023 024 NELSON Not available 05/22/2024 12:43:50 TSH, serum or plasma 2023 024 NELSON Not available 05/22/2024 16:18:22 T4, free, serum 2023 024 NELSON Not available 05/22/2024 15:58:00 lipid panel, serum 2023 024 NELSON Not available 01/16/2024 17:49:37 CMP, serum or plasma 2023 024 NELSON Not available 01/16/2024 17:49:49 CBC w/ auto diff 2023 024 NELSON Not available 01/16/2024 13:14:26 TSH, serum or plasma 2023 024 NELSON Not available 01/16/2024 18:48:14 T4, free, serum 2023 024 NELSON Not available 01/16/2024 18:14:13 lipid panel, serum 2022 023 NELSON Not available 10/16/2023 19:37:34 CMP, serum or plasma 2022 023 NELSON Not available 10/16/2023 19:37:44 CBC w/ auto diff 2022 023 NELSON Not available 10/17/2023 15:47:28 TSH, serum or plasma 2022 023 NELSON Not available 10/16/2023 19:48:27 T4, free, serum 2022 023 NELSON Not available 10/16/2023 19:45:40 Referral cardiolog ist referral - Please call patient to schedule an appointme nt. Thank you. 2024 025 ATHENAFAX Jonathan Raygoza, [address], [address], [place], [address], 09/02/2024 17:05:26 cardiolog ist referral - Please call patient to schedule. 2023 024 [email or web address] Jonathan Raygoza, [address], [address], [place], [address], 08/27/2024 16:35:05 endocrino logy referral - Please call patient to schedule. 2023 024 kathi Malin MD, [address], [place], [address], 08/27/2024 16:35:05 cardiolog ist referral 2023 024 kathi Raygoza, [address], [address], [place], [address], 07/25/2024 08:34:44 endocrino logy referral 2023 024 kathi Malin MD, [address], [place], [address], 07/25/2024 08:34:45 cardiolog ist referral 2023 024 kathi Raygoza, [address], [address], [place], [address], 04/22/2024 11:32:24 endocrino logy referral 2023 024 kathi Malin MD, [address], [place], [address], 04/22/2024 11:32:26 cardiolog ist referral 2022 023 kathi Raygoza, [address], [address], [place], [address], 01/22/2024 09:04:56 endocrino logy referral 2022 023 kathi Malin MD, [address], [place], [address], 01/22/2024 09:04:58 Procedures None recorded. Surgeries None recorded. Imaging MAMMO, screening , digital, bilateral - Please call patient to schedule. 2024 025 [facility] Scheduling, [address] [facility] [place], [address], 09/02/2024 17:05:30 US, liver - Please call patient to schedule. 2024 025 [facility] Ru [facility] Scheduling, [address] [facility] [place], [address], 09/02/2024 17:05:30 [place], liver [address] ([facility]), [address] [place], [address], 05/27/2024 17:23:37 [place], liver [address] ([facility]), [address] [place], [address], 05/07/2024 17:31:15 [place], liver [address] ([facility]), [address] [place], [address], 05/07/2024 17:31:18 MAMMO, screening , digital, bilateral 2022 023 [facility] ([facility]), [address] [place], [address], 10/16/2023 11:20:37 Medication Orders potassium chloride ER 20 mEq tablet,ex tended release 2023 024 [facility], [address] [place], [address], 05/27/2024 14:21:33 atorvasta tin 20 mg tablet 2023 024 [facility], [address] [place], [address], 10/25/2023 14:40:52 Patient TargetsNo targets recorded. Patient Instructions Encounter Date Encounter Id Patient Instructions Last Modified By Organization Details Last Modified Time 10/25/2023 [id number] dementia rating scale-2* siria 2 Not available 10/25/2023 14:40:44 depression screening* siria 2 Not available 10/25/2023 14:40:44 alcohol misuse* [email or web address] 2 Not available 10/25/2023 14:40:44 multi-dimensiona l health assessment questionnaire* siria 2 Not available 10/25/2023 14:40:[address] [facility] Plan and Screening Recommendations Advance Directives - Do you have one? No Advance Directives - Do we have your advance directive on file in your health record? Primary Prevention/Interven tion (prevents or decreases the chance of common diseases from occurring) Smoking Risk: Non Smoker Alcohol Misuse Screening: Negative Weight: Appropriate Physical activity: Need more exercise/physical activity Nutrition: Good Average Fall Risk (screened today): Low Vaccines Pneumococcal: Ordered Recommended today Recommended today, but you have declined No further needed Influenza: Your next one in the fall of this year Chronic Disease Risks Stroke: Low Risk Intermediate Risk I have no recommendations Act ahsan diagnosis, Continue current treatment plan Heart Attack: Low risk Intermediate Risk I have no recommendations Act ahsan diagnosis, Continue current treatment plan Clogging of the Arteries: Low risk Intermediate Risk I have no recommendations Act ahsan diagnosis, Continue current treatment plan Diabetes: Low Risk I have no recommendations Secondary Prevention/Interven tion (detects treatable diseases before they may cause symptoms, disability, or ) Breast Cancer Screening with mammogram: Cervical/Uterine/Ov renetta Cancer Screening: Osteoporosis Screening: Date Screening Last Performed: 12/2022 Colon Cancer Screening: Colonoscopy Date Screening Last Performed: 2020_ Eye Disease Screening: Dementia Risk: Low I have no recommendations Depression Screening: Negative [email or web address] Not available 10/25/2023 14:38:53 01/22/2024 [id number] dementia rating scale-2* [email or web address] Not available 01/30/2024 08:31:27 depression screening* Not available 01/30/2024 08:31:35 alcohol misuse* [email or web address] Not available 01/30/2024 08:31:39 multi-dimensiona l health assessment questionnaire* [email or web address] Not available 01/30/2024 08:31:31 Reason for Referral Commodities Manager Referral for Es sential hypertension Referring Physician: Callie Teixeira Internal Medicine, Encounter Date: 06/26/2023 Endocrinology Referral for H ypothyroidism Referring Physician: Callie Teixeira Internal Medicine, Encounter Date: 06/26/2023 Commodities Manager Referral for Es sential hypertension Referring Physician: Callie Teixeira Internal Medicine, Encounter Date: 10/25/2023 Endocrinology Referral for H ypothyroidism Referring Physician: Callie Teixeira Internal Medicine, Encounter Date: 10/25/2023 Commodities Manager Referral for Es sential hypertension Referring Physician: Callie Teixeira Internal Medicine, Encounter Date: 01/22/2024 Endocrinology Referral for H ypothyroidism Referring Physician: Callie Teixeira Internal Medicine, Encounter Date: 01/22/2024 Commodities Manager Referral for Es sential hypertension Please call patient to schedule. Referring Physician: Conchita Oconnor Medicine, Encounter Date: 05/27/2024 Endocrinology Referral for H ypothyroidism Please call patient to schedule. Referring Physician: Conchita Oconnor Medicine, Encounter Date: 05/27/2024 Commodities Manager Referral for Es sential hypertension Please call patient to schedule an appointment. Thank you. Referring Physician: Callie Teixeira Internal Medicine, Encounter Date: 09/02/2024 Results Created Date Observation Date Name Description Value Unit Range Abnormal Flag Note LastModifiedBy Organization Detail LastModifiedTime 06/22/20 23 06/22/2023 LIPID PANEL cholesterol 176 mg/dL 140-19 9 NIH YUNIEL NSUS RECOM MENDA TION FOR BONIFACIO STERO L: ADULT CHILD LOW RISK: <200 <170 BORDE RLINE : <200- 239 ----- HIGH RISK: >240 >200 Not Available [facility] (Lab) [address] [place], [address], 06/22/2023 13:58:42 06/22/2006/22/2023 LIPID PANEL triglyceride s 111 mg/dL 0-150 NIH YUNIEL NSUS REPOR T RECOM MENDA TION FOR TRIGL YCERI AMEENA: ADULT CHILD LOW RISK: <150 ----- BODER LINE: 150-1 99 ----- HIGH RISK: >200 ----- Not Available [facility] (Lab) [address] [place], [address], 06/22/2023 13:58:42 06/22/2006/22/2023 LIPID PANEL HDL cholesterol 57 mg/dL 40- Not Available [facility] (Lab) [address] [place], [address], 06/22/2023 13:58:42 06/22/20 23 06/22/2023 LIPID PANEL LDL cholesterol, calculated 97 mg/dL 0-130 NIH YUNIEL NSUS REPOR T RECOM MENDA TIONS FOR LDL: ADULT CHILD LOW RISK <130 <110 (OPTI MAL LDL) <100 ----- SDDE RLINE : 130-1 59 ----- HIGH RISK: >160 >130 A TRIGL YCERI DE RESUL T >400 INVAL IDATE S THE CALCU LATIO N FOR LDL FRACT IONAT ION - THE LDL RESUL T WILL NOT BE REPOR ABDOULAYE. Not Available [facility] (Lab) [address] [place], [address], 06/22/2023 13:58:42 06/22/20 23 06/22/2023 COMPR EHENS AHSAN METAB OLIC PANEL sodium 141 mmol/ L 137-14 5 Not Available [facility] (Lab) [address] [place], [address], 06/22/2023 13:58:56 06/22/20 23 06/22/2023 COMPR EHENS AHSAN METAB OLIC PANEL potassium 4.4 mmol/ L 3.5-5. 1 Not Available [facility] (Lab) [address] [place], [address], 06/22/2023 13:58:56 06/22/2006/22/2023 COMPR EHENS AHSAN METAB OLIC PANEL chloride 106 mmol/ L 98-107 Not Available [facility] (Lab) [address] [place], [address], 06/22/2023 13:58:56 06/22/20 23 06/22/2023 COMPR EHENS AHSAN METAB OLIC PANEL carbon dioxide 28 mmol/ L 22-30 Not Available [facility] (Lab) [address] [place], [address], 06/22/2023 13:58:56 06/22/20 23 06/22/2023 COMPR EHENS AHSAN METAB OLIC PANEL anion gap 11.4 mmol/ L 14-22 low Not Available [facility] (Lab) [address] [place], [address], 06/22/2023 13:58:56 06/22/20 23 06/22/2023 COMPR EHENS AHSAN METAB OLIC PANEL glucose 97 mg/dL 70-99 Not Available [facility] (Lab) [address] [place], [address], 06/22/2023 13:58:56 06/22/20 23 06/22/2023 COMPR EHENS AHSAN METAB OLIC PANEL BUN 15 mg/dL 8-19 Not Available [facility] (Lab) [address] [place], [address], 06/22/2023 13:58:56 06/22/20 23 06/22/2023 COMPR EHENS AHSAN METAB OLIC PANEL creatinine 0.60 mg/dL 0.66-1 .25 low Not Available [facility] (Lab) [address] [place], [address], 06/22/2023 13:58:56 06/22/20 23 06/22/2023 COMPR EHENS AHSAN METAB OLIC PANEL GFR >60 Refer ence Range : [place] GFR Healt hy Adult : >60 mL/mi n/1.7 3 m2 Chron ic Kidne y Disea se: 15-60 mL/mi n/1.7 3 m2 Kidne y Failu re: <15/m L/min /1.73 m2 www.n iddk. nih.g ov The MDRD study equat ion has not been valid ated in child sidney <18 years of age; pregn ant women ; the elder ly >85 years of age; or in some racia l or ethni c subgr oups, such as Hispa nics. Outsi de the valid ated valente eters , estim ated GFR is less accur ate, requi ring clini toby judgm ent on a case- by-ca se basis . Clini toby inter preta tion for other races and ages must be made by the clini elisa. The MDRD study equat ion has not been valid ated for the evalu ation of serum creat inine relat ed to nutri ember l statu s or medic ation usage . For perso ns <18 years of age, a pedia tric GFR calcu lator is avail able on the [facility] websi te: https ://boris preciado.tanvir negro.o baldemar/pr patrickess shastaal s/kdo qi/gf r_cal culat or Not Available [facility] (Lab) [address] [place], [address], 06/22/2023 13:58:56 06/22/20 23 06/22/2023 COMPR EHENS AHSAN METAB OLIC PANEL alkaline phosphatase 44 U/L 38-126 Not Available [facility] (Lab) [address] [place], [address], 06/22/2023 13:58:56 06/22/20 23 06/22/2023 COMPR EHENS AHSAN METAB OLIC PANEL alanine aminotransfe rase 17 U/L 0-35 Not Available [facility] (Lab) [address] [place], [address], 06/22/2023 13:58:56 06/22/20 23 06/22/2023 COMPR EHENS AHSAN METAB OLIC PANEL aspartate aminotransfe rase 60 U/L 15-37 high Not Available [facility] (Lab) [address] [place], [address], 06/22/2023 13:58:56 06/22/20 23 06/22/2023 COMPR EHENS AHSAN METAB OLIC PANEL bilirubin, total 0.70 mg/dL 0.20-1 .30 Not Available [facility] (Lab) [address] [place], [address], 06/22/2023 13:58:56 06/22/20 23 06/22/2023 COMPR EHENS AHSAN METAB OLIC PANEL calcium 9.8 mg/dL 8.4-10 .2 Not Available [facility] (Lab) [address] [place], [address], 06/22/2023 13:58:56 06/22/20 23 06/22/2023 COMPR EHENS AHSAN METAB OLIC PANEL total protein 8.1 g/dL 6.3-8. 2 Not Available [facility] (Lab) [address] [place], [address], 06/22/2023 13:58:56 06/22/20 23 06/22/2023 COMPR EHENS AHSAN METAB OLIC PANEL albumin 4.4 g/dL 3.0-4. 4 Not Available [facility] (Lab) [address] [place], [address], 06/22/2023 13:58:56 06/22/20 23 06/22/2023 COMPR EHENS AHSAN METAB OLIC PANEL globulin 3.7 g/dL 2.6-4. 2 Not Available [facility] (Lab) [address] [place], [address], 06/22/2023 13:58:56 06/22/20 23 06/22/2023 COMPR EHENS AHSAN METAB OLIC PANEL A/G ratio 1.2 ratio 1.0-2. 0 Not Available [facility] (Lab) [address] [place], [address], 06/22/2023 13:58:56 06/22/20 23 06/22/2023 T4 FREE free T4 1.54 NG/dL 0.78-2 .19 Not Available [facility] (Lab) [address] [place], [address], 06/22/2023 14:08:57 06/22/2006/22/2023 TEST NOT PERFO RMED test not performed SEE COMMEN T CBC NOT PERFO RMED DUE TO CLOT IN SAMPL E. Not Available [facility] (Lab) [address] [place], [address], 06/22/2023 14:15:27 06/22/20 23 06/22/2023 TSH thyroid-stim ulating hormone 2.260 uIU/m L 0.465- 4.680 Not Available [facility] (Lab) [address] [place], [address], 06/22/2023 14:20:18 10/16/19 24 10/16/2023 LIPID PANEL cholesterol 216 mg/dL 140-19 9 high NIH YUNIEL NSUS RECOM MENDA TION FOR BONIFACIO STERO L: ADULT CHILD LOW RISK: <200 <170 BORDE RLINE : <200- 239 ----- HIGH RISK: >240 >200 Not Available [facility] (Lab) [address] [place], [address], 10/16/2023 19:37:34 10/16/19 24 10/16/2023 LIPID PANEL triglyceride s 195 mg/dL 0-150 high NIH YUNIEL NSUS REPOR T RECOM MENDA TION FOR TRIGL YCERI AMEENA: ADULT CHILD LOW RISK: <150 ----- BODER LINE: 150-1 99 ----- HIGH RISK: >200 ----- Not Available [facility] (Lab) [address] [place], [address], 10/16/2023 19:37:34 10/16/19 24 10/16/2023 LIPID PANEL HDL cholesterol 56 mg/dL 40- Not Available [facility] (Lab) [address] [place], [address], 10/16/2023 19:37:34 10/16/19 24 10/16/2023 LIPID PANEL LDL cholesterol, calculated 121 mg/dL 0-130 NIH YUNIEL NSUS REPOR T RECOM MENDA TIONS FOR LDL: ADULT CHILD LOW RISK <130 <110 (OPTI MAL LDL) <100 ----- BORDE RLINE : 130-1 59 ----- HIGH RISK: >160 >130 A TRIGL YCERI DE RESUL T >400 INVAL IDATE S THE CALCU LATIO N FOR LDL FRACT IONAT ION - THE LDL RESUL T WILL NOT BE REPOR ABDOULAYE. Not Available [facility] (Lab) [address] [place], [address], 10/16/2023 19:37:34 10/16/19 24 10/16/2023 COMPR EHENS AHSAN METAB OLIC PANEL sodium 139 mmol/ L 137-14 5 Not Available [facility] (Lab) [address] [place], [address], 10/16/2023 19:37:44 10/16/19 24 10/16/2023 COMPR EHENS AHSAN METAB OLIC PANEL potassium 3.6 mmol/ L 3.5-5. 1 Not Available [facility] (Lab) [address] [place], [address], 10/16/2023 19:37:44 10/16/19 24 10/16/2023 COMPR EHENS AHSAN METAB OLIC PANEL chloride 106 mmol/ L 98-107 Not Available [facility] (Lab) [address] [place], [address], 10/16/2023 19:37:44 10/16/19 24 10/16/2023 COMPR EHENS AHSAN METAB OLIC PANEL carbon dioxide 27 mmol/ L 22-30 Not Available [facility] (Lab) [address] [place], [address], 10/16/2023 19:37:44 10/16/19 24 10/16/2023 COMPR EHENS AHSAN METAB OLIC PANEL anion gap 9.6 mmol/ L 14-22 low Not Available [facility] (Lab) [address] [place], [address], 10/16/2023 19:37:44 10/16/19 24 10/16/2023 COMPR EHENS AHSAN METAB OLIC PANEL glucose 110 mg/dL 70-99 high Not Available [facility] (Lab) [address] [place], [address], 10/16/2023 19:37:44 10/16/19 24 10/16/2023 COMPR EHENS AHSAN METAB OLIC PANEL BUN 15 mg/dL 8-19 Not Available [facility] (Lab) [address] [place], [address], 10/16/2023 19:37:44 10/16/19 24 10/16/2023 COMPR EHENS AHSAN METAB OLIC PANEL creatinine 0.56 mg/dL 0.66-1 .25 low Not Available [facility] (Lab) [address] [place], [address], 10/16/2023 19:37:44 10/16/19 24 10/16/2023 COMPR EHENS AHSAN METAB OLIC PANEL GFR >60 Refer ence Range : [place] GFR Healt hy Adult : >60 mL/mi n/1.7 3 m2 Chron ic Kidne y Disea se: 15-60 mL/mi n/1.7 3 m2 Kidne y Failu re: <15/m L/min /1.73 m2 www.n iddk. nih.g ov The MDRD study equat ion has not been valid ated in child sidney <18 years of age; pregn ant women ; the elder ly >85 years of age; or in some racia l or ethni c subgr oups, such as Hispa nics. Outsi de the valid ated valente eters , estim ated GFR is less accur ate, requi ring clini toby judgm ent on a case- by-ca se basis . Clini toby inter preta tion for other races and ages must be made by the clini elisa. The MDRD study equat ion has not been valid ated for the evalu ation of serum creat inine relat ed to nutri ember l statu s or medic ation usage . For perso ns <18 years of age, a pedia tric GFR calcu lator is avail able on the [facility] websi te: https ://boris w.tanvir negro.o rg/pr ofess ional s/kdo qi/gf r_cal culat or Not Available [facility] (Lab) [address] [place], [address], 10/16/2023 19:37:44 10/16/19 24 10/16/2023 COMPR EHENS AHSAN METAB OLIC PANEL alkaline phosphatase 44 U/L 38-126 Not Available [facility] (Lab) [address] [place], [address], 10/16/2023 19:37:44 10/16/19 24 10/16/2023 COMPR EHENS AHSAN METAB OLIC PANEL alanine aminotransfe rase 24 U/L 0-35 Not Available [facility] (Lab) [address] [place], [address], 10/16/2023 19:37:44 10/16/19 24 10/16/2023 COMPR EHENS AHSAN METAB OLIC PANEL aspartate aminotransfe rase 43 U/L 15-37 high Not Available [facility] (Lab) [address] [place], [address], 10/16/2023 19:37:44 10/16/19 24 10/16/2023 COMPR EHENS AHSAN METAB OLIC PANEL bilirubin, total 0.50 mg/dL 0.20-1 .30 Not Available [facility] (Lab) [address] [place], [address], 10/16/2023 19:37:44 10/16/19 24 10/16/2023 COMPR EHENS AHSAN METAB OLIC PANEL calcium 9.7 mg/dL 8.4-10 .2 Not Available [facility] (Lab) [address] [place], [address], 10/16/2023 19:37:44 10/16/19 24 10/16/2023 COMPR EHENS AHSAN METAB OLIC PANEL total protein 7.9 g/dL 6.3-8. 2 Not Available [facility] (Lab) [address] [place], [address], 10/16/2023 19:37:44 10/16/19 24 10/16/2023 COMPR EHENS AHSAN METAB OLIC PANEL albumin 4.6 g/dL 3.0-4. 4 high Not Available [facility] (Lab) [address] [place], [address], 10/16/2023 19:37:44 10/16/19 24 10/16/2023 COMPR EHENS AHSAN METAB OLIC PANEL globulin 3.3 g/dL 2.6-4. 2 Not Available [facility] (Lab) [address] [place], [address], 10/16/2023 19:37:44 10/16/19 24 10/16/2023 COMPR EHENS AHSAN METAB OLIC PANEL A/G ratio 1.4 ratio 1.0-2. 0 Not Available [facility] (Lab) [address] [place], [address], 10/16/2023 19:37:44 10/16/19 24 10/16/2023 T4 FREE free T4 1.15 NG/dL 0.78-2 .19 Not Available [facility] (Lab) [address] [place], [address], 10/16/2023 19:45:40 10/16/19 24 10/16/2023 TSH thyroid-stim ulating hormone 5.110 uIU/m L 0.465- 4.680 high Not Available [facility] (Lab) [address] [place], [address], 10/16/2023 19:48:27 10/17/19 24 10/17/2023 CBC/C OMPLE TE BLD COUNT W/DIF F white blood cells 7.9 x10'3 /uL 4.2-10 .8 Not Available [facility] (Lab) [address] [place], [address], 10/17/2023 15:47:28 10/17/19 24 10/17/2023 CBC/C OMPLE TE BLD COUNT W/DIF F red blood cells 4.81 x10'6 /uL 3.80-5 .20 Not Available [facility] (Lab) [address] [place], [address], 10/17/2023 15:47:28 10/17/19 24 10/17/2023 CBC/C OMPLE TE BLD COUNT W/DIF F hemoglobin 15.2 g/dL 12.0-1 5.6 Not Available [facility] (Lab) [address] [place], [address], 10/17/2023 15:47:28 10/17/19 24 10/17/2023 CBC/C OMPLE TE BLD COUNT W/DIF F hematocrit 44.9 % 35.7-4 5.7 Not Available [facility] (Lab) [address] [place], [address], 10/17/2023 15:47:28 10/17/19 24 10/17/2023 CBC/C OMPLE TE BLD COUNT W/DIF F mean red cell volume 93.3 fL 82.0-9 9.0 Not Available [facility] (Lab) [address] [place], [address], 10/17/2023 15:47:28 10/17/19 24 10/17/2023 CBC/C OMPLE TE BLD COUNT W/DIF F mean red cell hemoglobin 31.6 pg 27.0-3 3.0 Not Available [facility] (Lab) [address] [place], [address], 10/17/2023 15:47:28 10/17/19 24 10/17/2023 CBC/C OMPLE TE BLD COUNT W/DIF F mean RBC HGB concentratio n 33.9 g/dL 31.0-3 6.0 Not Available [facility] (Lab) [address] [place], [address], 10/17/2023 15:47:28 10/17/19 24 10/17/2023 CBC/C OMPLE TE BLD COUNT W/DIF F red cell distribution width 12.0 % 11.8-1 5.5 Not Available [facility] (Lab) [address] [place], [address], 10/17/2023 15:47:28 10/17/19 24 10/17/2023 CBC/C OMPLE TE BLD COUNT W/DIF F platelets 196 x10'3 /uL 150-40 0 Not Available [facility] (Lab) [address] [place], [address], 10/17/2023 15:47:28 10/17/19 24 10/17/2023 CBC/C OMPLE TE BLD COUNT W/DIF F mean platelet volume 11.7 fL 9.0-12 .4 Not Available [facility] (Lab) [address] [place], [address], 10/17/2023 15:47:28 10/17/19 24 10/17/2023 CBC/C OMPLE TE BLD COUNT W/DIF F neutrophils 52.2 % 39.0-7 2.0 Not Available [facility] (Lab) [address] [place], [address], 10/17/2023 15:47:28 10/17/19 24 10/17/2023 CBC/C OMPLE TE BLD COUNT W/DIF F lymphocytes 40.4 % 16.0-4 7.0 Not Available [facility] (Lab) [address] [place], [address], 10/17/2023 15:47:28 10/17/19 24 10/17/2023 CBC/C OMPLE TE BLD COUNT W/DIF F monocytes 4.5 % 5.0-12 .0 low Not Available [facility] (Lab) [address] [place], [address], 10/17/2023 15:47:28 10/17/19 24 10/17/2023 CBC/C OMPLE TE BLD COUNT W/DIF F eosinophils 1.5 % 1.0-7. 0 Not Available [facility] (Lab) [address] [place], [address], 10/17/2023 15:47:28 10/17/19 24 10/17/2023 CBC/C OMPLE TE BLD COUNT W/DIF F basophils 1.0 % 0.0-2. 0 Not Available [facility] (Lab) [address] [place], [address], 10/17/2023 15:47:28 10/17/19 24 10/17/2023 CBC/C OMPLE TE BLD COUNT W/DIF F immature granulocytes 0.4 % 0.00-0 .50 Not Available [facility] (Lab) [address] [place], [address], 10/17/2023 15:47:28 10/17/19 24 10/17/2023 CBC/C OMPLE TE BLD COUNT W/DIF F neutrophils, absolute count 4.10 x10'3 /uL 1.5-8. 0 Not Available [facility] (Lab) [address] [place], [address], 10/17/2023 15:47:28 10/17/19 24 10/17/2023 CBC/C OMPLE TE BLD COUNT W/DIF F lymphocytes, absolute count 3.17 x10'3 /uL 1.07-3 .43 Not Available [facility] (Lab) [address] [place], [address], 10/17/2023 15:47:28 10/17/19 24 10/17/2023 CBC/C OMPLE TE BLD COUNT W/DIF F monocytes, absolute count 0.35 x10'3 /uL 0.29-0 .99 Not Available [facility] (Lab) [address] [place], [address], 10/17/2023 15:47:28 10/17/19 24 10/17/2023 CBC/C OMPLE TE BLD COUNT W/DIF F eosinophils, absolute count 0.12 x10'3 /uL 0.02-0 .53 Not Available [facility] (Lab) [address] [place], [address], 10/17/2023 15:47:28 10/17/19 24 10/17/2023 CBC/C OMPLE TE BLD COUNT W/DIF F basophils, absolute count 0.08 x10'3 /uL 0.01-0 .08 Not Available [facility] (Lab) [address] [place], [address], 10/17/2023 15:47:28 10/17/19 24 10/17/2023 CBC/C OMPLE TE BLD COUNT W/DIF F immature granulocytes ,absolute 0.03 x10'3 /uL 0.00-0 .05 Not Available [facility] (Lab) [address] [facility] [place], [address], 10/17/2023 15:47:28 10/17/19 24 10/17/2023 CBC/C OMPLE TE BLD COUNT W/DIF F nucleated red blood cells 0.0 % -0 Not Available [facility] (Lab) [address] [place], [address], 10/17/2023 15:47:28 10/17/19 24 10/17/2023 CBC/C OMPLE TE BLD COUNT W/DIF F NRBC# 0.00 x10'3 /uL Not Available [facility] (Lab) [address] [place], [address], 10/17/2023 15:47:28 01/16/20 24 01/16/2024 CBC/C OMPLE TE BLD COUNT W/DIF F white blood cells 7.3 x10'3 /uL 4.2-10 .8 Not Available [facility] (Lab) [address] [place], [address], 01/16/2024 13:14:26 01/16/20 24 01/16/2024 CBC/C OMPLE TE BLD COUNT W/DIF F red blood cells 4.64 x10'6 /uL 3.80-5 .20 Not Available [facility] (Lab) [address] [place], [address], 01/16/2024 13:14:26 01/16/20 24 01/16/2024 CBC/C OMPLE TE BLD COUNT W/DIF F hemoglobin 14.8 g/dL 12.0-1 5.6 Not Available [facility] (Lab) [address] [place], [address], 01/16/2024 13:14:26 01/16/20 24 01/16/2024 CBC/C OMPLE TE BLD COUNT W/DIF F hematocrit 43.8 % 35.7-4 5.7 Not Available [facility] (Lab) [address] [place], [address], 01/16/2024 13:14:26 01/16/20 24 01/16/2024 CBC/C OMPLE TE BLD COUNT W/DIF F mean red cell volume 94.4 fL 82.0-9 9.0 Not Available [facility] (Lab) [address] [facility] [place], [address], 01/16/2024 13:14:26 01/16/20 24 01/16/2024 CBC/C OMPLE TE BLD COUNT W/DIF F mean red cell hemoglobin 31.9 pg 27.0-3 3.0 Not Available [facility] (Lab) [address] [place], [address], 01/16/2024 13:14:26 01/16/20 24 01/16/2024 CBC/C OMPLE TE BLD COUNT W/DIF F mean RBC HGB concentratio n 33.8 g/dL 31.0-3 6.0 Not Available [facility] (Lab) [address] [place], [address], 01/16/2024 13:14:26 01/16/20 24 01/16/2024 CBC/C OMPLE TE BLD COUNT W/DIF F red cell distribution width 12.0 % 11.8-1 5.5 Not Available [facility] (Lab) [address] [place], [address], 01/16/2024 13:14:26 01/16/20 24 01/16/2024 CBC/C OMPLE TE BLD COUNT W/DIF F platelets 166 x10'3 /uL 150-40 0 Not Available [facility] (Lab) [address] [place], [address], 01/16/2024 13:14:26 01/16/20 24 01/16/2024 CBC/C OMPLE TE BLD COUNT W/DIF F mean platelet volume 11.3 fL 9.0-12 .4 Not Available [facility] (Lab) [address] [place], [address], 01/16/2024 13:14:26 01/16/20 24 01/16/2024 CBC/C OMPLE TE BLD COUNT W/DIF F neutrophils 47.3 % 39.0-7 2.0 Not Available [facility] (Lab) [address] [place], [address], 01/16/2024 13:14:26 01/16/20 24 01/16/2024 CBC/C OMPLE TE BLD COUNT W/DIF F lymphocytes 45.9 % 16.0-4 7.0 Not Available [facility] (Lab) [address] [place], [address], 01/16/2024 13:14:26 01/16/20 24 01/16/2024 CBC/C OMPLE TE BLD COUNT W/DIF F monocytes 4.1 % 5.0-12 .0 low Not Available [facility] (Lab) [address] [place], [address], 01/16/2024 13:14:01/16/20 24 01/16/2024 CBC/C OMPLE TE BLD COUNT W/DIF F eosinophils 1.5 % 1.0-7. 0 Not Available [facility] (Lab) [address] [place], [address], 01/16/2024 13:14:26 01/16/20 24 01/16/2024 CBC/C OMPLE TE BLD COUNT W/DIF F basophils 0.8 % 0.0-2. 0 Not Available [facility] (Lab) [address] [place], [address], 01/16/2024 13:14:26 07/0201/16/2024 CBC/C OMPLE TE BLD COUNT W/DIF F immature granulocytes 0.4 % 0.00-0 .50 Not Available [facility] (Lab) [address] [place], [address], 01/16/2024 13:14:26 01/16/20 24 01/16/2024 CBC/C OMPLE TE BLD COUNT W/DIF F neutrophils, absolute count 3.47 x10'3 /uL 1.5-8. 0 Not Available [facility] (Lab) [address] [place], [address], 01/16/2024 13:14:26 01/16/20 24 01/16/2024 CBC/C OMPLE TE BLD COUNT W/DIF F lymphocytes, absolute count 3.37 x10'3 /uL 1.07-3 .43 Not Available [facility] (Lab) [address] [place], [address], 01/16/2024 13:14:26 01/16/20 24 01/16/2024 CBC/C OMPLE TE BLD COUNT W/DIF F monocytes, absolute count 0.30 x10'3 /uL 0.29-0 .99 Not Available [facility] (Lab) [address] [place], [address], 01/16/2024 13:14:26 01/16/20 24 01/16/2024 CBC/C OMPLE TE BLD COUNT W/DIF F eosinophils, absolute count 0.11 x10'3 /uL 0.02-0 .53 Not Available [facility] (Lab) [address] [place], [address], 01/16/2024 13:14:26 01/16/20 24 01/16/2024 CBC/C OMPLE TE BLD COUNT W/DIF F basophils, absolute count 0.06 x10'3 /uL 0.01-0 .08 Not Available [facility] (Lab) [address] [place], [address], 01/16/2024 13:14:26 01/16/20 24 01/16/2024 CBC/C OMPLE TE BLD COUNT W/DIF F immature granulocytes ,absolute 0.03 x10'3 /uL 0.00-0 .05 Not Available [facility] (Lab) [address] [place], [address], 01/16/2024 13:14:26 01/16/20 24 01/16/2024 CBC/C OMPLE TE BLD COUNT W/DIF F nucleated red blood cells 0.0 % -0 Not Available [facility] (Lab) [address] [place], [address], 01/16/2024 13:14:26 01/16/20 24 01/16/2024 CBC/C OMPLE TE BLD COUNT W/DIF F NRBC# 0.00 x10'3 /uL Not Available [facility] (Lab) [address] [place], [address], 01/16/2024 13:14:26 01/16/20 24 01/16/2024 LIPID PANEL cholesterol 134 mg/dL 140-19 9 low NIH YUNIEL NSUS RECOM MENDA TION FOR BONIFACIO STERO L: ADULT CHILD LOW RISK: <200 <170 BORDE RLINE : <200- 239 ----- HIGH RISK: >240 >200 Not Available [facility] (Lab) [address] [place], [address], 01/16/2024 17:49:37 01/16/2001/16/2024 LIPID PANEL triglyceride s 124 mg/dL 0-150 NIH YUNIEL NSUS REPOR T RECOM MENDA TION FOR TRIGL YCERI AMEENA: ADULT CHILD LOW RISK: <150 ----- BODER LINE: 150-1 99 ----- HIGH RISK: >200 ----- Not Available [facility] (Lab) [address] [place], [address], 01/16/2024 17:49:37 01/16/20 24 01/16/2024 LIPID PANEL HDL cholesterol 51 mg/dL 40- Not Available [facility] (Lab) [address] [place], [address], 01/16/2024 17:49:37 01/16/20 24 01/16/2024 LIPID PANEL LDL cholesterol, calculated 58 mg/dL 0-130 NIH YUNIEL NSUS REPOR T RECOM MENDA TIONS FOR LDL: ADULT CHILD LOW RISK <130 <110 (OPTI MAL LDL) <100 ----- BORDE RLINE : 130-1 59 ----- HIGH RISK: >160 >130 A TRIGL YCERI DE RESUL T >400 INVAL IDATE S THE CALCU LATIO N FOR LDL FRACT IONAT ION - THE LDL RESUL T WILL NOT BE REPOR ABDOULAYE. Not Available [facility] (Lab) [address] [place], [address], 01/16/2024 17:49:37 01/16/20 24 01/16/2024 COMPR EHENS AHSAN METAB OLIC PANEL sodium 140 mmol/ L 137-14 5 Not Available [facility] (Lab) [address] [place], [address], 01/16/2024 17:49:49 01/16/20 24 01/16/2024 COMPR EHENS AHSAN METAB OLIC PANEL potassium 3.9 mmol/ L 3.5-5. 1 Not Available [facility] (Lab) [address] [place], [address], 01/16/2024 17:49:49 01/16/20 24 01/16/2024 COMPR EHENS AHSAN METAB OLIC PANEL chloride 107 mmol/ L 98-107 Not Available [facility] (Lab) [address] [place], [address], 01/16/2024 17:49:49 01/16/20 24 01/16/2024 COMPR EHENS AHSAN METAB OLIC PANEL carbon dioxide 28 mmol/ L 22-30 Not Available [facility] (Lab) [address] [place], [address], 01/16/2024 17:49:49 01/16/20 24 01/16/2024 COMPR EHENS AHSAN METAB OLIC PANEL anion gap 8.9 mmol/ L 14-22 low Not Available [facility] (Lab) [address] [place], [address], 01/16/2024 17:49:49 01/16/20 24 01/16/2024 COMPR EHENS AHSAN METAB OLIC PANEL glucose 97 mg/dL 70-99 Not Available [facility] (Lab) [address] [place], [address], 01/16/2024 17:49:49 01/16/20 24 01/16/2024 COMPR EHENS AHSAN METAB OLIC PANEL BUN 12 mg/dL 8-19 Not Available [facility] (Lab) [address] [place], [address], 01/16/2024 17:49:49 01/16/20 24 01/16/2024 COMPR EHENS AHSAN METAB OLIC PANEL creatinine 0.51 mg/dL 0.66-1 .25 low Not Available [facility] (Lab) [address] [place], [address], 01/16/2024 17:49:49 01/16/20 24 01/16/2024 COMPR EHENS AHSAN METAB OLIC PANEL GFR >60 Refer ence Range : [place] GFR Healt hy Adult : >60 mL/mi n/1.7 3 m2 Chron ic Kidne y Disea se: 15-60 mL/mi n/1.7 3 m2 Kidne y Failu re: <15/m L/min /1.73 m2 www.n iddk. nih.g ov The MDRD study equat ion has not been valid ated in child sidney <18 years of age; pregn ant women ; the elder ly >85 years of age; or in some racia l or ethni c subgr oups, such as Hispa nics. Outsi de the valid ated valente eters , estim ated GFR is less accur ate, requi ring clini toby judgm ent on a case- by-ca se basis . Clini toby inter preta tion for other races and ages must be made by the clini elisa. The MDRD study equat ion has not been valid ated for the evalu ation of serum creat inine relat ed to nutri ember l statu s or medic ation usage . For perso ns <18 years of age, a pedia tric GFR calcu lator is avail able on the [facility] websi te: https ://boris w.tanvir negro.o rg/pr ofess ional s/kdo qi/gf r_cal culat or Not Available [facility] (Lab) [address] [place], [address], 01/16/2024 17:49:49 01/16/20 24 01/16/2024 COMPR EHENS AHSAN METAB OLIC PANEL alkaline phosphatase 53 U/L 38-126 Not Available [facility] (Lab) [address] [place], [address], 01/16/2024 17:49:49 01/16/20 24 01/16/2024 COMPR EHENS AHSAN METAB OLIC PANEL alanine aminotransfe rase 22 U/L 0-35 Not Available [facility] (Lab) [address] [place], [address], 01/16/2024 17:49:49 01/16/20 24 01/16/2024 COMPR EHENS AHSAN METAB OLIC PANEL aspartate aminotransfe rase 27 U/L 15-37 Not Available [facility] (Lab) [address] [place], [address], 01/16/2024 17:49:49 01/16/20 24 01/16/2024 COMPR EHENS AHSAN METAB OLIC PANEL bilirubin, total 0.60 mg/dL 0.20-1 .30 Not Available [facility] (Lab) [address] [place], [address], 01/16/2024 17:49:49 01/16/20 24 01/16/2024 COMPR EHENS AHSAN METAB OLIC PANEL calcium 10.0 mg/dL 8.4-10 .2 Not Available [facility] (Lab) [address] [place], [address], 01/16/2024 17:49:49 01/16/20 24 01/16/2024 COMPR EHENS AHSAN METAB OLIC PANEL total protein 7.6 g/dL 6.3-8. 2 Not Available [facility] (Lab) [address] [place], [address], 01/16/2024 17:49:49 01/16/20 24 01/16/2024 COMPR EHENS AHSAN METAB OLIC PANEL albumin 4.6 g/dL 3.0-4. 4 high Not Available [facility] (Lab) [address] [place], [address], 01/16/2024 17:49:49 01/16/20 24 01/16/2024 COMPR EHENS AHSAN METAB OLIC PANEL globulin 3.0 g/dL 2.6-4. 2 Not Available [facility] (Lab) [address] [place], [address], 01/16/2024 17:49:49 01/16/20 24 01/16/2024 COMPR EHENS AHSAN METAB OLIC PANEL A/G ratio 1.5 ratio 1.0-2. 0 Not Available [facility] (Lab) [address] [place], [address], 01/16/2024 17:49:49 01/16/20 24 01/16/2024 T4 FREE free T4 1.35 NG/dL 0.78-2 .19 Not Available [facility] (Lab) [address] [place], [address], 01/16/2024 18:14:13 01/16/20 24 01/16/2024 TSH thyroid-stim ulating hormone 1.880 uIU/m L 0.465- 4.680 Not Available [facility] (Lab) [address] [place], [address], 01/16/2024 18:48:14 08/27/19 25 08/30/2024 LIPID PANEL , STAND DAMIAN cholesterol, total 150 mg/dL <200 normal Not Available [address] [address] [place], [address], 08/30/2024 14:10:13 08/27/19 25 08/30/2024 LIPID PANEL , STAND DAMIAN HDL cholesterol 60 mg/dL > or = 50 normal Not Available [facility] [address], [address], 08/30/2024 14:10:13 08/27/19 25 08/30/2024 LIPID PANEL , STAND DAMIAN triglyceride s 116 mg/dL <150 normal Not Available [address], [address], 08/30/2024 14:10:13 08/27/19 25 08/30/2024 LIPID PANEL , STAND DAMIAN LDL-choleste rol 70 mg/dL _(toby c) normal Refer ence range : <100 Thien able range <100 mg/dL for prima ry preve ntion ; <70 mg/dL for patie nts with CHD or diabe tic patie nts with > or = 2 CHD risk facto rs. LDL-C is now calcu lated using the Netta cabrera-Hop kins radha patel n, which is a valid ated novel alayna zavala than the Fried kenyon equat ion in the estim ation of LDL-C . Netta cabrera SS et al. FRANCISCO. 2013; 310(1 9): 2061- 2068 (http ://ed ucati on.Qu estDi CasaSwap.coms. com/f aq/FA Q164) Not Available [address] [address] [place], [address], 08/30/2024 14:10:13 08/27/19 25 08/30/2024 LIPID PANEL , STAND DAMIAN chol/HDLC ratio 2.5 (calc ) <5.0 normal Not Available [address] [address] [facility] [place], [address], 08/30/2024 14:10:13 08/27/1908/30/2024 LIPID PANEL , STAND DAMIAN non HDL cholesterol 90 mg/dL _(toby c) <130 normal For patie nts with diabe flor plus 1 major ASCVD risk facto r, treat ing to a non-H DL-C goal of <100 mg/dL (LDL- C of <70 mg/dL ) is consi dered a thera perosemarie c optio n. Not Available [address] [address] [facility], [place], [address], 08/30/2024 14:10:13 08/27/19 25 08/30/2024 PROTE IN, TOTAL AND PROTE IN ELECT ROPHO RESIS protein, total 7.6 g/dL 6.1-8. 1 normal Not Available [address] [address] [place], [address], 08/30/2024 14:10:14 08/27/1908/30/2024 PROTE IN, TOTAL AND PROTE IN ELECT ROPHO RESIS albumin 4.7 g/dL 3.8-4. 8 normal Not Available [facility] [address] [address] [place], [address], 08/30/2024 14:10:14 08/27/19 25 08/30/2024 PROTE IN, TOTAL AND PROTE IN ELECT ROPHO RESIS alpha 1 globulin 0.3 g/dL 0.2-0. 3 normal Not Available [facility] [address] [address] [place], [address], 08/30/2024 14:10:14 08/27/19 25 08/30/2024 PROTE IN, TOTAL AND PROTE IN ELECT ROPHO RESIS alpha 2 globulin 0.6 g/dL 0.5-0. 9 normal Not Available [address] [address] [place], [address], 08/30/2024 14:10:14 08/27/19 25 08/30/2024 PROTE IN, TOTAL AND PROTE IN ELECT ROPHO RESIS beta 1 globulin 0.4 g/dL 0.4-0. 6 normal Not Available [address] [address] [place], [address], 08/30/2024 14:10:14 08/27/19 25 08/30/2024 PROTE IN, TOTAL AND PROTE IN ELECT ROPHO RESIS beta 2 globulin 0.4 g/dL 0.2-0. 5 normal Not Available [address] [address] [place], [address], 08/30/2024 14:10:14 08/27/19 25 08/30/2024 PROTE IN, TOTAL AND PROTE IN ELECT [facility] gamma globulin 1.2 g/dL 0.8-1. 7 normal Not Available [address] [address] [place], [address], 08/30/2024 14:10:14 08/27/19 25 08/30/2024 PROTE IN, TOTAL AND PROTE IN ELECT [facility] interpretati on No restr icted band (M-sp myles) seen. Not Available [address] [address] [place], [address], 08/30/2024 14:10:14 08/27/19 25 08/30/2024 PROTE IN, TOTAL AND PROTE IN ELECT ROPHO RESIS , RANDO M URINE creatinine, random urine 20 mg/dL 20-275 normal Not Available [address] [address] [place], [address], 08/30/2024 14:10:15 08/27/19 25 08/30/2024 PROTE IN, TOTAL AND PROTE IN MASHA ARBOLEDA URINE protein/crea tinine ratio 200 mg/g_ creat 24-184 high Not Available [address], [address], 08/30/2024 14:10:15 08/27/19 25 08/30/2024 PROTE IN, TOTAL AND PROTE IN MASHA ARBOLEDA URINE protein/crea tinine ratio 0.200 mg/mg _crea t 0.024- 0.184 high Not Available [address], [address], 08/30/2024 14:10:15 08/27/19 25 08/30/2024 PROTE IN, TOTAL AND PROTE IN MASHA ARBOLEDA URINE protein, total, random ur 4 mg/dL 5-24 low Verif ied by repea t moe sis. Not Available [address], [address], 08/30/2024 14:10:15 08/27/19 25 08/30/2024 PROTE IN, TOTAL AND PROTE IN MASHA ARBOLEDA URINE albumin 0 % Not Available [address], [address], 08/30/2024 14:10:15 08/27/19 25 08/30/2024 PROTE IN, TOTAL AND PROTE IN MASHA ARBOLEDA URINE [id number] ulins 0 % Not Available [facility] [address] [address] [place], [address], 08/30/2024 14:10:15 08/27/19 25 08/30/2024 PROTE IN, TOTAL AND PROTE IN MASHA ARBOLEDA URINE [id number] ulins 0 % Not Available [facility] [address], [address], 08/30/2024 14:10:15 08/27/19 25 08/30/2024 PROTE IN, TOTAL AND PROTE IN ELECT ROPHO RESIS , RANDO M URINE beta globulins 0 % Not Available [address], [address], 08/30/2024 14:10:15 08/27/19 25 08/30/2024 PROTE IN, TOTAL AND PROTE IN ELECT ROPHO RESIS , RANDO M URINE gamma globulins 0 % Not Available [facility] [address] [address] [place], [address], 08/30/2024 14:10:15 08/27/19 25 08/30/2024 PROTE IN, TOTAL AND PROTE IN ELECT [facility] , RANDO M URINE interpretati on Agaro se [facility] resis of urine revea ls that quant ities of album in and globu marisa fract ions are below the level of detec tion by this metho d. No abnor mal prote in is obser blair. The suppl ier of the testi ng reage nts for this assay has valdez ed. Detec tion of small monoc lonal prote ins may vary by test syste m. Urine immun ofixa tion is sugge sted if clini suri indic ated and not alrea dy order ed. Not Available [address] [address] [place], [address], 08/30/2024 14:10:15 08/27/19 25 08/30/2024 COMPR EHENS AHSAN METAB OLIC PANEL glucose 95 mg/dL 65-99 normal Fasti ng refer ence inter isaias Not Available [facility] [address] [address] [place], [address], 08/30/2024 14:10:17 08/27/19 25 08/30/2024 COMPR EHENS AHSAN METAB OLIC PANEL urea nitrogen (BUN) 13 mg/dL 7-25 normal Not Available [address] [place], [address], 08/30/2024 14:10:17 02/11/20 25 08/30/2024 COMPR EHENS AHSAN METAB OLIC PANEL creatinine 0.49 mg/dL 0.50-1 .05 low Not Available [address], [address], 08/30/2024 14:10:17 08/27/19 25 08/30/2024 COMPR EHENS AHSAN METAB OLIC PANEL eGFR 103 mL/mi n/1.7 3m2 > or = 60 normal Not Available [address], [address], 08/30/2024 14:10:17 08/27/19 25 08/30/2024 COMPR EHENS AHSAN METAB OLIC PANEL BUN/creatini ne ratio 27 (calc ) 6-22 high Not Available [address], [address], 08/30/2024 14:10:17 08/27/19 25 08/30/2024 COMPR EHENS AHSAN METAB OLIC PANEL sodium 142 mmol/ L 135-14 6 normal Not Available [address], [address], 08/30/2024 14:10:17 08/27/19 25 08/30/2024 COMPR EHENS AHSAN METAB OLIC PANEL potassium 4.3 mmol/ L 3.5-5. 3 normal Not Available [address], [address], 08/30/2024 14:10:17 08/27/19 25 08/30/2024 COMPR EHENS AHSAN METAB OLIC PANEL chloride 104 mmol/ L 98-110 normal Not Available [address], [address], 08/30/2024 14:10:17 08/27/19 25 08/30/2024 COMPR EHENS AHSAN METAB OLIC PANEL carbon dioxide 29 mmol/ L 20-32 normal Not Available [address], [address], 08/30/2024 14:10:17 08/27/19 25 08/30/2024 COMPR EHENS AHSAN METAB OLIC PANEL calcium 10.1 mg/dL 8.6-10 .4 normal Not Available [address], [address], 08/30/2024 14:10:17 08/27/19 25 08/30/2024 COMPR EHENS AHSAN METAB OLIC PANEL protein, total 7.6 g/dL 6.1-8. 1 normal Not Available [address], [address], 08/30/2024 14:10:17 08/27/19 25 08/30/2024 COMPR EHENS AHSAN METAB OLIC PANEL albumin 4.7 g/dL 3.6-5. 1 normal Not Available [address], [address], 08/30/2024 14:10:17 08/27/19 25 08/30/2024 COMPR EHENS AHSAN METAB OLIC PANEL globulin 2.9 g/dL_ (calc ) 1.9-3. 7 normal Not Available [address], [address], 08/30/2024 14:10:17 08/27/19 25 08/30/2024 COMPR EHENS AHSAN METAB OLIC PANEL albumin/glob ulin ratio 1.6 (calc ) 1.0-2. 5 normal Not Available [address], [address], 08/30/2024 14:10:17 08/27/19 25 08/30/2024 COMPR EHENS AHSAN METAB OLIC PANEL bilirubin, total 0.5 mg/dL 0.2-1. 2 normal Not Available [address], [address], 08/30/2024 14:10:17 08/27/19 25 08/30/2024 COMPR EHENS AHSAN METAB OLIC PANEL alkaline phosphatase 39 U/L 37-153 normal Not Available [facility] [address], [address], 08/30/2024 14:10:17 08/27/19 25 08/30/2024 COMPR EHENS AHSAN METAB OLIC PANEL AST 18 U/L 10-35 normal Not Available [address], [address], 08/30/2024 14:10:17 08/27/19 25 08/30/2024 COMPR EHENS AHSAN METAB OLIC PANEL ALT 17 U/L 6-29 normal Not Available [address], [address], 08/30/2024 14:10:17 08/27/19 25 08/30/2024 CBC (INCL UDES DIFF/ PLT) white blood cell count 7.0 thous and/u L 3.8-10 .8 normal Not Available [address], [address], 08/30/2024 14:10:18 08/27/19 25 08/30/2024 CBC (INCL UDES DIFF/ PLT) red blood cell count 4.87 evelyn on/uL 3.80-5 .10 normal Not Available [address], [address], 08/30/2024 14:10:18 08/27/19 25 08/30/2024 CBC (INCL UDES DIFF/ PLT) hemoglobin 15.2 g/dL 11.7-1 5.5 normal Not Available [address], [address], 08/30/2024 14:10:18 08/27/19 25 08/30/2024 CBC (INCL UDES DIFF/ PLT) hematocrit 45.8 % 35.0-4 5.0 high Not Available [address], [address], 08/30/2024 14:10:18 08/27/19 25 08/30/2024 CBC (INCL UDES DIFF/ PLT) MCV 94.0 fL 80.0-1 00.0 normal Not Available [address], [address], 08/30/2024 14:10:18 08/27/19 25 08/30/2024 CBC (INCL UDES DIFF/ PLT) MCH 31.2 pg 27.0-3 3.0 normal Not Available [address], [address], 08/30/2024 14:10:18 08/27/19 25 08/30/2024 CBC (INCL UDES DIFF/ PLT) MCHC 33.2 g/dL 32.0-3 6.0 normal For adult s, a sligh t decre ase in the calcu lated MCHC value (in the range of 30 to 32 g/dL) is most likel y not clini suri navarretei steve t; jensen er, it shoul d be inter prete d with cauti on in [facility] with other red cell valente eters and the patie nt's clini toby condi tion. Not Available [address], [address], 08/30/2024 14:10:18 08/27/1908/30/2024 CBC (INCL UDES DIFF/ PLT) RDW 11.8 % 11.0-1 5.0 normal Not Available [address], [address], 08/30/2024 14:10:18 08/27/19 25 08/30/2024 CBC (INCL UDES DIFF/ PLT) platelet count 186 thous and/u L 140-40 0 normal Not Available [facility] [address], [address], 08/30/2024 14:10:18 08/27/19 25 08/30/2024 CBC (INCL UDES DIFF/ PLT) MPV 11.3 fL 7.5-12 .5 normal Not Available [address], [address], 08/30/2024 14:10:18 08/27/19 25 08/30/2024 CBC (INCL UDES DIFF/ PLT) absolute neutrophils 3668 cells /uL 1500-7 800 normal Not Available [address], [address], 08/30/2024 14:10:18 08/27/19 25 08/30/2024 CBC (INCL UDES DIFF/ PLT) absolute lymphocytes 2828 cells /uL 850-39 00 normal Not Available [address], [address], 08/30/2024 14:10:18 08/27/19 25 08/30/2024 CBC (INCL UDES DIFF/ PLT) absolute monocytes 329 cells /uL 200-95 0 normal Not Available [address], [address], 08/30/2024 14:10:18 08/27/19 25 08/30/2024 CBC (INCL UDES DIFF/ PLT) absolute eosinophils 112 cells /uL 15-500 normal Not Available [address], [address], 08/30/2024 14:10:18 08/27/19 25 08/30/2024 CBC (INCL UDES DIFF/ PLT) absolute basophils 63 cells /uL 0-200 normal Not Available [address], [address], 08/30/2024 14:10:18 08/27/19 25 08/30/2024 CBC (INCL UDES DIFF/ PLT) neutrophils 52.4 % normal Not Available [facility] [address], [address], 08/30/2024 14:10:18 08/27/19 25 08/30/2024 CBC (INCL UDES DIFF/ PLT) lymphocytes 40.4 % normal Not Available [facility] [address], [address], 08/30/2024 14:10:18 08/27/19 25 08/30/2024 CBC (INCL UDES DIFF/ PLT) monocytes 4.7 % normal Not Available [facility] [address], [address], 08/30/2024 14:10:18 08/27/19 25 08/30/2024 CBC (INCL UDES DIFF/ PLT) eosinophils 1.6 % normal Not Available [address], [address], 08/30/2024 14:10:18 08/27/19 25 08/30/2024 CBC (INCL UDES DIFF/ PLT) basophils 0.9 % normal Not Available [address], [address], 08/30/2024 14:10:18 08/27/19 25 08/30/2024 T4, FREE T4, free 1.3 NG/dL 0.8-1. 8 normal Not Available [address], [address], 08/30/2024 14:10:19 08/27/19 25 08/30/2024 TSH TSH 3.45 mIU/L 0.40-4 .50 normal Not Available [address], [address], 08/30/2024 14:10:20 08/27/19 25 08/30/2024 T3, FREE T3, free 2.8 pg/mL 2.3-4. 2 normal Not Available [address] [address] [place], [address], 08/30/2024 14:10:22 08/27/19 25 08/30/2024 PROTE IN, TOTAL AND PROTE IN [facility] ARBOLEDA URINE creatinine, random urine 20 mg/dL 20-275 normal Not Available [address], [address], 08/30/2024 14:16:38 08/27/19 25 08/30/2024 PROTE IN, TOTAL AND PROTE IN [facility] AR[facility]OLEDA URINE protein/crea tinine ratio 200 mg/g_ creat 24-184 high Not Available [address], [address], 08/30/2024 14:16:38 08/27/19 25 08/30/2024 PROTE IN, TOTAL AND PROTE IN [facility] AR[facility]OLEDA URINE protein/crea tinine ratio 0.200 mg/mg _crea t 0.024- 0.184 high Not Available [address], [address], 08/30/2024 14:16:38 08/27/19 25 08/30/2024 PROTE IN, TOTAL AND PROTE IN [facility] ARBOLEDA URINE protein, total, random ur 4 mg/dL 5-24 low Verif ied by repea t moe sis. Not Available [address], [address], 08/30/2024 14:16:38 08/27/19 25 08/30/2024 PROTE IN, TOTAL AND PROTE IN [facility] MASHA SARABIA URINE albumin 0 % Not Available [address], [address], 08/30/2024 14:16:38 08/27/19 25 08/30/2024 PROTE IN, TOTAL AND PROTE IN [facility] ARBOLEDA M URINE [id number] ulins 0 % Not Available [facility] [address] [address] [place], [address], 08/30/2024 14:16:38 08/27/19 25 08/30/2024 PROTE IN, TOTAL AND PROTE IN [facility] MASHA SHAH URINE [id number] ulins 0 % Not Available [address] [address] [place], [address], 08/30/2024 14:16:38 08/27/19 25 08/30/2024 PROTE IN, TOTAL AND [facility] beta globulins 0 % Not Available [address] [address] [place], [address], 08/30/2024 14:16:38 08/27/19 25 08/30/2024 PROTE IN, [facility] gamma globulins 0 % Not Available [address] [address] [place], [address], 08/30/2024 14:16:38 08/27/19 25 08/30/2024 PROTE IN, TOTAL AND PROTE IN [facility] MASHA URINE interpretati on [facility] of urine revea ls that quant ities of album in and globu marisa fract ions are below the level of detec tion by this metho d. No abnor mal prote in is obser blair. The suppl ier of the testi ng reage nts for this assay has valdez ed. Detec tion of small monoc lonal prote ins may vary by test syste m. Urine immun ofixa tion is sugge sted if clini suri indic ated and not alrea dy order ed. Not Available [address] [address] [place], [address], 08/30/2024 14:16:38 10/16/19 24 digit al mamm unila t scree n lt [facility] [address] [facility] [place] [address] Patien t Name: MARY RODRIGUEZ Access ion #: [id number] Sex: F : 1955 4 Dictat ed By: Lulú bishop Attend ing Physic duc: ZITA ROLLINS Orderi ng Physic duc: HUMBERTO ZITA FELIX Exam Date: 2023 09:31 AM Exam Name: MG DIGITA L GEENA LT SCREEN Admitt ing Diagno sis(es ): CLINIC AL HISTOR Y: Screen ing exam, no breast compla ints. Person al histor y of right breast cancer status post right mastec rico. COMPAR KHOI: Prior mammog césar dated 023, 022, and 09/23/19 21 TECHNI QUE: Full field bilate ral digita l mammog merry was perfor med in the CC and MLO projec tions. CAD was utiliz ed. FINDIN GS: The left breast is hetero geneou sly dense, which may obscur e small masses (categ ory C). Stable benign -appea ring calcif icatio ns. No suspic ious mass, gael ectura l distor tion, or suspic ious microc alcifi cation s are seen. The axilla e, skin and nipple s are normal . IMPRES MEET: Benign findin gs. RECOMM ENDATI ONS: In the absenc e of new breast compla ints, annual screen ing is recomm ended. The patien t will be notifi ed of the mammog merry result s per hospit al protoc ol. BI-RAD S CATEGO RY: 2: Benign . Electr onical ly Signed by: Lulú bishop at 2023 10:01: 38 AM Page 1 [email or web address] [facility] (Imaging) [address] [place], [address], 11/15/2023 16:11:01 10/16/19 24 10/16/2023 MAMMO , scree syeda, digit al, bilat eral No observ ation record ed. [email or web address] [facility] [address], [place], [address], 11/15/2023 16:11:01 08/15/19 25 08/14/2024 imagi ng/di gregorioos tic resul t No observ ation record ed. [facility] [address] [facility] [address], [place], [address], 08/15/2024 09:46:37 Result Notes None recorded. Problems Name Problem SNOMED Code Status Onset Date Resolution Date Notes Provider Name and Address Organization Details Recorded Time Postmenopausa l osteoporosis 025694059 Active 2021 Not Available [facility] 3 22:41:15 Non-alcoholic fatty liver 142660689 Active 2021 Not Available [facility] 3 22:41:15 Malignant tumor of breast 249624626 Active 2018 Not Available [facility] 3 22:41:15 Disorder of gallbladder 25254820 Active 2021 Not Available [facility] 3 22:41:15 Hypothyroidis m 78240169 Active 2018 Not Available [facility] 3 22:41:15 Vitamin deficiency 12331856 Active 2018 Not Available [facility] 3 22:41:15 Hypercalciuri a 15126971 Active 2022 Not Available [facility] 3 22:41:15 Essential hypertension 02266736 Active 2022 Not Available [facility] 3 22:41:15 Hyperlipidemi a 72528781 Active 2022 Not Available [facility] 3 22:41:15 Osteoporosis 71057588 Active 2022 Not Available [facility] 3 22:41:15 Visual disturbance 79391763 Active 2022 Not Available [facility] 3 22:41:15 Hypokalemia 60412536 Active 2022 Not Available [facility] 3 22:41:15 Increased liver function 44651366 Active 2022 Callie awad MD [address], [facility] [address], [place], [address] , [employer] 3 16:04:20 Hyperproteine maria d 70253617 Active 2023 Callie awad MD [address], [facility] [address], [place], [address] , [employer] 4 14:24:53 Problem Notes None recorded. Procedures Surgical History Date Name Laterality Status Provider Name and Address Organization Details Recorded Time 10/25/19 Medicare Wellness CPT Code, subsequent completed Mark Hernandez LPN [place] [employer] [facility] [employer] 10/25/2023 14:21:05 12/05/19 21 Most Recent Bone Density completed Not Available [facility] 09/14/2022 02:44:51 11/03/19 21 Date of Last Colonoscopy completed Not Available [facility] 09/14/2022 02:44:51 02/14/20 19 Date of Last Pap Smear completed Not Available [facility] 09/14/2022 02:44:51 excision of right breast completed Not Available [facility] 09/14/2022 02:44:54 Breast cancer dx min invsive completed Not Available [facility] 09/14/2022 02:44:54 Imaging Results Imaging Date Name Status LastModified by Organiz ation Details LastModified Time 10/16/2023 digital mamm unilat screen lt completed [email or web address] [facility] [address] [place], [address], 11/15/2023 16:11:01 10/16/2023 MAMMO, screening, digital, bilateral completed [email or web address] [facility] [address] [place], [address], 11/15/2023 16:11:01 08/14/2024 imaging/diagno stic result active [address] [place] [address], [address], 08/15/2024 09:46:37 Procedure Notes None recorded. Medical Equipment None Reported. Allergies No known drug allergies Medications Name Sig Start Date Stop Date Status Note LastModified by Organization Details LastModified Time magnesium 500 mg tablet Take by oral route. 08/07 completed Not Available Not Available Not Available atorvastat in 20 mg tablet TAKE 1 TABLET BY MOUTH ONCE DAILY active Not Available Not Available No t Available aspirin 81 mg tablet,del ayed release Take 1 tablet every day by oral route. 2018 active Not Available Not Available Not Avai lable levothyrox ine 88 mcg tablet Take 90 tablets every day by oral route. 02/13 completed Takes 44 mcg Not Available Not Available Not Available Unithroid 50 mcg tablet TAKE 1 TABLET BY MOUTH ONCE DAILY IN THE MORNING 2024 active Not Available Not Available Not Avai lable lisinopril 10 mg tablet Take 1 tablet every day by oral route in the morning for 90 days. 10/27 completed Not Available Not Available Not Available promethazi ne 25 mg tablet TAKE 1 2 (ONE HALF) TABLET BY MOUTH EVERY 6 HOURS 01/25 completed Not Available Not Available Not Available ibuprofen 400 mg tablet 06/26 completed Not Available Not Available Not Available hydrochlor othiazide 12.5 mg capsule TAKE 1 CAPSULE BY MOUTH ONCE DAILY IN THE MORNING active Not Available Not Available No t Available pravastati n 20 mg tablet TAKE 1 TABLET BY MOUTH ONCE DAILY 09/29 completed Not Available Not Available Not Available hydrochlor othiazide 25 mg tablet TAKE 1 TABLET BY MOUTH ONCE DAILY IN THE MORNING active Not Available Not Available No t Available polyethyle ne glycol 3350 17 gram/dose oral powder TAKE DIRECTED ON YOUR PREP SHEET 01/25 completed Not Available Not Available Not Available Vitamin D2 1,250 mcg (50,000 unit) capsule 11/21 completed Not Available Not Available Not Available vitamin E 800 unit capsule Take 1 capsule every day by oral route. 10/27 completed Not Available Not Available Not Available tamoxifen 20 mg tablet TAKE 1 TABLET BY MOUTH ONCE DAILY 09/02 completed Not Available Not Available Not Available Co Q-10 200 mg capsule Take 1 capsule every day by oral route. active Not Available Not Available No t Available levothyrox ine 03/01 completed Not Available Not Available Not Available B Complex qd 10/27 completed Not Available Not Available Not Available [place] 3 qd 07/31 completed Not Available Not Available Not Available Calcium + Vitamin D Calcium 1200/Vit. D3 2000iu qd 10/27 completed Not Available Not Available Not Available fenofibrat e nanocrysta llized 48 mg tablet TAKE 1 TABLET BY MOUTH ONCE DAILY 06/26 completed Not Available Not Available Not Available fenofibrat e nanocrysta llized 145 mg tablet Take 1 tablet every day by oral route for 90 days. 02/20 completed Not Available Not Available Not Available Prolia 60 mg/mL subcutaneo us syringe Inject 1 mL (60 mg) by subcutane ous injection every 6 months. 02/27 completed Not Available Not Available Not Available potassium chloride ER 20 mEq tablet,ext ended release TAKE 2 TABLETS BY MOUTH ONCE DAILY FOR 5 DAYS active Not Available Not Available No t Available Fluarix Quad [id number] (PF) 60 mcg (15 mcg x 4)/0.5 mL IM syringe 06/13 completed Not Available Not Available Not Available Fluzone Quad (PF) 60 mcg (15 mcg x 4)/0.5 mL IM syringe active Not Available Not Available N ot Available Flublok Quad (PF) 180 mcg (45 mcg x 4)/0.5 mL IM syringe PHARMACIS T ADMINISTE RED IMMUNIZAT ION ADMINISTE RED AT TIME OF DISPENSIN G active Not Available Not Available No t Available Jovani-Phos Neutral 250 mg tablet TAKE 1 TABLET BY MOUTH THREE TIMES DAILY BEFORE MEAL(S) 05/27 completed Not Available Not Available Not Available Vitals Date Recorded Body height Body mass index (BMI) Body weight Body temperature Heart rate Systolic blood pressure Diastolic blood pressure Provider Name and Address Organization Details Last Updated DateTime 3 157.48 cm 21.9 kg/m2 03564.0 8 g 97.7 [degF] 120 /min 156 mm[Hg] 88 mm[Hg] TORO Ching [place] [facility] 3 14:39:34 Date Recorded Body height Body mass index (BMI) Body weight Body temperature Heart rate Systolic blood pressure Diastolic blood pressure Provider Name and Address Organization Details Last Updated DateTime 4 157.48 cm 21.9 kg/m2 34253.0 8 g 98.3 [degF] 84 /min 126 mm[Hg] 80 mm[Hg] TORO Ching [place] [employer] [facility] 4 13:56:38 Date Recorded Pain severity - 0-10 verbal numeric rating [Score] - Reported Provider Name and Address Organization Details Last Updated DateTime 10/25/2023 0 Mark Hernandez LPN [facility] 10/25/2023 14:21:36 Date Recorded Body height Body mass index (BMI) Body weight Body temperature Heart rate Systolic blood pressure Diastolic blood pressure Provider Name and Address Organization Details Last Updated DateTime 4 157.48 cm 21.6 kg/m2 30123.9 g 97.9 [degF] 84 /min 138 mm[Hg] 70 mm[Hg] Candace Quezada Kit [facility] 4 14:09:24 Date Recorded Body height Body mass index (BMI) Body weight Body temperature Heart rate Respiratory rate Oxygen saturation Oxygen saturation in Arterial blood by Pulse oximetry Pain severity - 0-10 verbal numeric rating [Score] - Reported Systolic blood pressure Diastolic blood pressure Provider Name and Address Organization Details Last Updated DateTime 4 157.48 cm 21.2 kg/m2 34484.7 1 g 98.2 [degF] 96 /min 16 /min 97 % 97 % 0 146 mm[Hg] 88 mm[Hg] Mark Hernandez LPN [facility] 4 14:16:28 Date Recorded Body height Body mass index (BMI) Body weight Body temperature Heart rate Systolic blood pressure Diastolic blood pressure Provider Name and Address Organization Details Last Updated DateTime 5 157.48 cm 22.9 kg/m2 73584.0 5 g 97.6 [degF] 90 /min 140 mm[Hg] 80 mm[Hg] TORO Ching [facility] 5 14:19:08 Social History Question Answer Notes LastModified by Organizat ion Details LastModified Time Tobacco Smoking Status Never Smoker Not Available [facility] 09/14/2022 02:41:34 Do You Have An Advance Directive? No [id number] Information not available 09/14/2022 What Is Your Level Of Alcohol Consumption? None MIGRATION.27663 41852 Information not available 09/14/2022 Are You Blind Or Do You Have Difficulty Seeing? No MIGRATION.79173 16272 Information not available 09/14/2022 What Is Your Level Of Caffeine Consumption? Occasional MIGRATION.01563 83328 Information not available 09/14/2022 How Much Tobacco Do You Chew? None MIGRATION.46381 04600 Information not available 09/14/2022 In The 14 Days Before Symptom Onset, Have You Had Close Contact With A Laboratory-confi rmed COVID-19 While That Case Was Ill? No MIGRATION.58391 34079 Information not available 09/14/2022 In The 14 Days Before Symptom Onset, Have You Had Close Contact With A Person Who Is Under Investigation For COVID-19 While That Person Was Ill? No MIGRATION.18800 71381 Information not available 09/14/2022 Are You Deaf Or Do You Have Serious Difficulty Hearing? No MIGRATION.06066 48343 Information not available 09/14/2022 What Type Of Diet Are You Following? REGULAR MIGRATION.02290 30968 Information not available 09/14/2022 Which Illicit Or Recreational Drugs Have You Used? None MIGRATION.84802 03171 Information not available 09/14/2022 Do You Or Have You Ever Used E-cigarettes Or Vape? Never Used Electronic Cigarettes MIGRATION.96610 21647 Information not available 09/14/2022 What Is Your Occupation? Homemaker MIGRATION.31843 51112 Information not available 09/14/2022 Have There Been Any Changes To Your Family Or Social Situation? No MIGRATION.96419 00871 Information not available 09/14/2022 What Is The Fluoride Status Of Your Home? Unknown MIGRATION.42770 40125 Information not available 09/14/2022 Are There Any Guns Present In Your Home? No MIGRATION.39522 68093 Information not available 09/14/2022 Do You Use Insect Repellent Routinely? No MIGRATION.23076 16954 Information not available 09/14/2022 Where Do You Live? [place]House MIGRATION.21550 00764 Information not available 09/14/2022 Are You Able To Care For Yourself? Yes [email or web address] Information not available 10/25/2023 Are You Blind Or Do Yo Have Difficulty Seeing? No Information not available 10/25/2023 Are You Deaf Or Do You Have Serious Difficulty Hearing? No Information not available 10/25/2023 Live Alone Of With Others? With Others [email or web address] Information not available 10/25/2023 Do You Have A Medical Power Of Geoscience Technician? No MIGRATION.62933 29147 Information not available 09/14/2022 What Was The Date Of Your Most Recent Tobacco Screening? 09/02/2024 [email or web address] Information not available 09/02/2024 Do You Have Any Pets? Yes MIGRATION.11342 02867 Information not available 09/14/2022 What Is Your Relationship Status? MIGRATION.89936 73143 Information not available 09/14/2022 Do You Use Your Seat Belt Or Car Seat Routinely? Yes MIGRATION.78111 81719 Information not available 09/14/2022 Do You Have Smoke And Carbon Monoxide Detectors In Your Home? Yes MIGRATION.70907 94454 Information not available 09/14/2022 Are You Passively Exposed To Smoke? Yes MIGRATION.36014 44551 Information not available 09/14/2022 Do You Or Have You Ever Used Smokeless Tobacco? Never Used Smokeless Tobacco MIGRATION.90016 56006 Information not available 09/14/2022 Are There Any Smokers In Your House? Yes MIGRATION.56317 30368 Information not available 09/14/2022 How Much Tobacco Do You Smoke? No MIGRATION.74307 06240 Information not available 09/14/2022 Do You Use Any Illicit Or Recreational Drugs? No MIGRATION.14902 31550 Information not available 09/14/2022 Do You Use Sunscreen Routinely? No MIGRATION.78866 61427 Information not available 09/14/2022 Has Tobacco Cessation Counseling Been Provided? No N/a MIGRATION.18622 02787 Information not available 09/14/2022 Have You Recently Traveled Abroad? No MIGRATION.11238 27808 Information not available 09/14/2022 Do You Have Any Dietary Restrictions? No MIGRATION.05188 59123 Information not available 09/14/2022 Do You Or Have You Ever Used Any Other Forms Of Tobacco Or Nicotine? No MIGRATION.26231 58843 Information not available 09/14/2022 Sex: Female Functional Status Question Answer Note LastModified by Organizat ion Details LastModified Time Do you have difficulty walking or climbing stairs? No MIGRATION.[id number] 026 Information not available 09/14/2022 Do you have transportation difficulties? No MIGRATION.1606859 026 Information not available 09/14/2022 Are you able to walk? YESWOREST MIGRATION.2407892 026 Information not available 09/14/2022 Do you have difficulty doing errands alone? No MIGRATION.1542977 026 Information not available 09/14/2022 Are you able to care for yourself? Yes MIGRATION.7260752 026 Information not available 09/14/2022 Do you have difficulty dressing or bathing? No MIGRATION.8063076 026 Information not available 09/14/2022 What is your exercise level? Occasional MIGRATION.8102570 026 Information not available 09/14/2022 Mental Status Question Answer Note LastModified by Organizat ion Details LastModified Time Do you have difficulty concentrating, remembering or making decisions? No MIGRATION.[id number] 6 Information not available 09/14/2022 Family History Relationship Description Onset Age of this Age Resolved Age Notes LastModified by Organization Details LastModified Time Father Diabetes mellitus [id number] Not available 09/14/2022 02:45:00 Medical History Condition Response BREAST PROBLEMS Y CANCER: SPECIFY Y HYPERTHYROIDISM Y EYE PROBLEMS Y USE OF BLOOD THINNERS Y HIGH CHOLESTEROL / HYPERLIPIDEMIA Y Gynecological History Statement/Question Response Abnormal Pap N Date of Last Mammogram 10/04/2021 Date of Last Colonoscopy 11/02/2020 Most Recent Bone Density 2020 Date of Last Pap Date of Last Pap Smear 02/13/2019 Current Control Method Menopause Most Recent Mammogram Breast Problems right breast cancer Obstetrics History GPAL:G 0 P 0 0 0 0 Immunizations Vaccine Type Date Status Note Provider Nam e and Address Organization Details Recorded Time Influenza, high-dose, quadrivalent, PF 2 completed Not Available [facility] 02/22/2023 22:41:15 COVID-19, mRNA, LNP-S, PF, 100 mcg/0.5mL dose or 50 mcg/0.25mL dose 1 completed TORO Ching null, [place] [facility] 01/17/2024 12:15:05 COVID-19, mRNA, LNP-S, PF, 100 mcg/0.5mL dose or 50 mcg/0.25mL dose 1 completed Not Available [facility] 02/22/2023 22:41:15 Influenza, split virus, quadrivalent, preservative 9 completed Not Available [facility] 02/22/2023 22:41:15 Influenza, split virus, trivalent, preservative 1 completed Not Available [facility] 02/22/2023 22:41:15 Influenza, split virus, quadrivalent, preservative 0 completed Candace Quezada RMA null, [facility] 01/17/2024 12:15:04 Influenza, high-dose, trivalent, PF 7 completed Candace Quezada RMA null, [facility] 01/17/2024 12:15:05 pneumococcal polysaccharide PPV23 3 completed Not Available [facility] 02/22/2023 22:41:15 Pneumococcal conjugate PCV 13 1 completed Candace Quezada RMA null, [facility] 01/17/2024 12:15:05 Influenza, recombinant, quadrivalent, PF 0 completed Candace Quezada RMA null, [facility] 01/17/2024 12:15:05 Influenza, high-dose, quadrivalent, PF 2 completed Candace Quezada RMA null, [facility] 01/17/2024 12:15:05 COVID-19, mRNA, LNP-S, PF, 100 mcg/0.5mL dose or 50 mcg/0.25mL dose 1 completed Candace Quezada RMA null, [facility] 01/17/2024 12:15:05 COVID-19, mRNA, LNP-S, PF, 100 mcg/0.5mL dose or 50 mcg/0.25mL dose 1 completed Candace Quezada RMA null, [facility] 01/17/2024 12:15:05 COVID-19, mRNA, LNP-S, bivalent, PF, 50 mcg/0.5 mL or 25mcg/0.25 mL dose 2 completed Candace Pilar, RMA null, [facility] 01/17/2024 12:15:05 Influenza, split virus, trivalent, PF 5 completed Candace Pilar, RMA null, [facility] 01/17/2024 12:15:05 Influenza, split virus, quadrivalent, PF 7 completed Candace [place] Ardo, RMA null, [facility] 01/17/2024 12:15:05 Influenza, split virus, quadrivalent, PF 8 completed Candace Pilar, RMA null, [facility] 01/17/2024 12:15:05 Influenza, split virus, quadrivalent, PF 6 completed Candace [place], RMA null, [facility] 01/17/2024 12:15:05 Influenza, split virus, quadrivalent, PF 9 completed Candace [place], RMA null, [facility] 01/17/2024 12:15:05 Influenza, split virus, quadrivalent, PF 1 completed Candace Pilar, RMA null, [facility] 01/17/2024 12:15:05 Influenza, high-dose, quadrivalent, PF 3 completed Candace Pilar, RMA null, [facility] 09/02/2024 14:16:21 COVID-19, mRNA, LNP-S, PF, 50 mcg/0.5 mL 3 completed Candace Pilar, RMA null, [facility] 09/02/2024 14:16:21 Past Encounters Encounter ID Performer Location Encounter Start Date Encounter Closed Date Diagnosis/Indication Diagnosis SNOMED-CT Code Diagnosis ICD10 Code Diagnosis Note [id number] [facility] Internal Med Dee krishna [address] [place] [address] 09/28/2020 00:00:00 10/01/2020 10:13:27 [id number] _ATHENA_M IGRATION_ DEFAULT_1 _1 , 10/26/2020 00:00:00 10/26/2020 16:51:50 [id number] [facility] [place] [address] [place] [address] 01/25/2021 00:00:00 01/25/2021 17:42:10 [id number] [facility] [place] [address] [place] [address] 02/02/2021 00:00:00 02/02/2021 14:57:04 [id number] [facility] [address] [place] [address] 03/01/2021 00:00:00 03/15/2021 09:20:35 [id number] [facility] [address] , [place] [address] 09/01/2021 00:00:00 09/30/2021 18:13:07 [id number] [facility] [place] [address] [place] [address] 09/03/2021 00:00:00 09/03/2021 21:18:29 [id number] [facility] [place] [address] [place] [address] 09/20/2021 00:00:00 09/20/2021 21:03:50 [id number] [facility] [address] [place] [address] 03/02/2022 00:00:00 05/15/2022 12:53:35 [id number] [facility] [place] [address] [place] [address] 03/04/2022 00:00:00 03/04/2022 15:12:26 [id number] [facility] [place] [address] [place] [address] 04/01/2022 00:00:00 04/02/2022 18:11:21 [id number] [facility] General Surgery [address], [address] [place] [address] 05/10/2022 00:00:00 05/10/2022 14:28:12 [id number] [facility] Internal Med [place] [address] [facility] y , [facility] [place] [address] 08/10/2022 00:00:00 08/10/2022 17:26:22 [id number] Le De Los Santos MD [facility] [place] [address] [place] [address] 10/27/2022 12:24:51 10/27/2022 13:07:12 Hypothyroidism 99895032 E03.9 TSH and FT4 in ideal range- continue unithroid 50 mcg daily. She was reminded to take her unithroid on empty stomach with glass of water and wait one hour to eat or have her coffee in morning and up to 4 hours if ever taking any heartburn or reflux medication s to help optimize absorption . Discussed paleo like diet with restrictio n of GMOs to help with energy and to optimize absorption of vitamins and minerals and reduce inflammati on. Postmenopa usal osteoporosis [id number] M81.0 Due for repeat bone density scan this November- last prolia injection was in Mar 2022- she wants to hold off on further injections until she has completed her bone density scan. Her urine calcium was not at goal range- encouraged patient to go back on [facility] as she is on high dose hctz with minimal urine calcium reduction/ loss. Goal under 200 mg/24 hour She is aware to restart with meals to help with tolerabili ty. If she has no improvemen t in her bone density we will need to resume prolia injections . Hypercalciuria 75487377 R82.994 Send for repeat 24 hour urinary calcium as we are restarting K Phos with meals in addition to hctz 25 mg daily. She is over goal range with hctz monotherap y. Spent up to 25 minutes preparing to see the patient (eg, review of tests), obtaining and/or reviewing separately obtained history, performing a medically appropriat e examinatio n and evaluation , counseling and educating the patient, ordering medication s, tests, along with documentin g clinical informatio n in the electronic health record, independen tly interpreti ng results and communicat ing results to the patient. RTC in 4 months. Patient was provided a handwritte n lab order which contains our fax number. If she choses to go outside of the [facility] system to obtain labwork she was advised to provide our fax number and my informatio n to the lab she will be obtaining labwork from in order to have her labs properly forwarded over for me to review so there is no loss of follow up due to use of outside network. She was also advised to contact our clinic informing us that she has completed her labwork so we are aware we will need to reach out to the appropriat e laboratory to request her results be forwarded to us so I might have the ability to review and make further medical decision making in her case. She voiced understand ing. [id number] Malu [facility] Internal Med [place] [address] [facility] , [facility] [place] [address] 02/06/2023 14:25:10 02/06/2023 15:33:53 Screening - NAD [id number] Z13.9 C-scope: 11/06/2020 : Dr Madison, next 10 years Mammogram: Last was in 11/01, is scheduled for this in [facility] 021: Neg 022: Neg 023: Neg DEXA: 11/21/18: OP, Dr De Los Santos, now on HCTZDEXA: 2020 : OP sees Dr De Los Santos for thisDEXA: 01/05/2023 : OP see Dr De Los Santos, on prolia and Kphos and HCTZ see case from Dr De Los Santos PAP: Seen in 01/2022 as per her history Get yearly flu shotGet tdap if not doneUTD on COVID 19 vaccineUTD PCV #13 03/01/2021 , get PCV #23 RTC in 4 monthsGet labsER if worseShe and her did verbalize their understand ing of the above Essential hypertension 17253146 I10 ECHO 06/27/18: WNL On ASAOn HCTZ 25mg dailyOn lisinopril 10mg dailyGet labs [facility] Dr Raygoza 10/19/2020 , f/u in one year Hyperlipidemia 51403424 E78.5 On fenofibrat e Does wellGet labs Screening for malignant neoplasm of breast 678645789 Z12.[address] Alatorre, in [facility], next apt is in 04/03 OV 04/04/18:O n tamoxifanI s to see Dr Alatorre in 10/02 OV 06/13/18:S ees Dr Alatorre in 10/02 OV 08/01/18:I s seeing oncologist Addendum:0 09/20/18: Dr Papo Riggs is to continue with the tamoxifen and to also get a DEXA, next apt is in 6 months OV 11/21/18:F /u with oncologist On tamoxifen OV 02/20/19:S ees oncologist next month 03/28/19On tamoxifen Addendum: 04/06/19:N P Raife 04/03/19: to continue with the tamoxifen OV 07/31/2019 :On tamoxifenS ees Dr Riggs in 09/2019 in [facility] Addendum: 10/06/2019 : 0: Dr Riggs and fellow Dr Rosaura Najera: to continue with the tamoxifen 10 years, and f/u in 6 months, also to take ca and vit d 2000IU daily OV 09/28/2020 :Did see Dr Riggs last week as per her history, and f/u in one year OV 03/01/2021 :Sees Dr Riggs OV 09/01/2021 :On tamoxifen 20mg dailyFille d by Dr Parenll OV 03/02/2022 :On tamoxifenS ees oncologist OV 08/10/2022 :On tamoxifen, sees her oncologist , referred OV 02/06/2023 :On tamoxifen, sees her oncologist Hypothyroidism 94105374 E03.9 On euthyrox 50mcgs daily Does wellGet labs Sees Dr De Los Santos, 03/04/2022 Osteoporosis 72952192 M8 1.[address] De Los Santos, s/p prolia on 02/02/[address] De Los Santos Visual disturbance 77153 001 H53.9 Get on US liver, GGT and hepatitis panel US liver 03/09/2022 : Fatty liver, see case 03/14/[address] Pang 05/10/2022 : No surgery Hypokalemia 23260386 E87 .6 Get labs [id number] Le De Los Santos MD [facility] Endo [place] [address] [place] [address] 02/27/2023 12:03:15 02/27/2023 12:58:18 Hypothyroidism 53892074 E03.9 TSH and FT4 in ideal range- continue unithroid 50 mcg daily. She was reminded to take her unithroid on empty stomach with glass of water and wait one hour to eat or have her coffee in morning and up to 4 hours if ever taking any heartburn or reflux medication s to help optimize absorption . Discussed paleo like diet with restrictio n of GMOs to help with energy and to optimize absorption of vitamins and minerals and reduce inflammati on. 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 Hypercalciuria 88367119 R82.994 Repeat 24 hour urinary calcium was in normal range as she restarted K Phos with meals in addition to hctz 25 mg daily. Spent up to 25 minutes preparing to see the patient (eg, review of tests), obtaining and/or reviewing separately obtained history, performing a medically appropriat e examinatio n and evaluation , counseling and educating the patient, ordering medication s, tests, along with documentin g clinical informatio n in the electronic health record, independen tly interpreti ng results and communicat ing results to the patient. Patient can be followed by PCP - she/he is aware of my resignatio n and last day of April 28. If needed his/her PCP can refer patient to another endocrinol ogist in the area. All questions /concerns answered and refills necessary at visit today. [id number] Callie awad MD [facility] Internal Med [place] [address] [place] [address] 06/26/2023 14:20:17 06/26/2023 15:23:27 Screening - NAD [id number] Z13.9 C-scope: 11/06/2020 : Dr Madison, next 10 years Mammogram: Last was in 11/01, is scheduled for this in [facility] 021: Neg 022: Neg 023: Neg DEXA: 11/21/18: OP, Dr De Los Santos, now on HCTZDEXA: 2020 : OP sees Dr De Los Santos for thisDEXA: 01/05/2023 : OP see Dr De Los Santos, on prolia and Kphos and HCTZ see case from Dr De Los Santos PAP: Seen in 01/2022 as per her history Get yearly flu shotGet tdap if not doneUTD on COVID 19 vaccineUTD PCV #13 03/01/2021 , get PCV #23Can do RSV vaccine RTC in 4 monthsGet labsER if worseShe and her did verbalize their understand ing of the above Essential hypertension 89203202 I10 ECHO 06/27/18: WNL On ASAOn HCTZ 25mg dailyOn lisinopril 10mg dailyGet labs [facility] Dr Raygoza 10/19/2020 , f/u in one year Hyperlipidemia 97510220 E78.5 Not on fenofibrat eCan d/c this as LFT is elevated, more diet and exercise Does wellGet labs Screening for malignant neoplasm of breast 103526366 Z12.[address] Alatorre, in [facility] Sees Dr Alatorre in 10/0209/20/18: Dr Papo Riggs is to continue with the tamoxifen and to also get a DEXA, next apt is in 6 months [employer] Raife 04/03/19: to continue with the tamoxifen 09/26/2019 : Dr Riggs and fellow Dr Rosaura Najera: to continue with the tamoxifen 10 years, and f/u in 6 months, also to take ca and vit d 2000IU daily On tamoxifen 20mg dailyFille d by Dr Parnell Hypothyroidism 87116050 E03.9 On euthyrox 50mcgs daily Does wellGet labs Seen Dr De Los Santos will refer 06/26/[address] Malin Osteoporosis 98791079 M8 1.[address] De Los Santos, s/p prolia on 02/02/2021 Increased liver function 24339054 R94.5 Get on US liver, GGT and hepatitis panel US liver 03/09/2022 : Fatty liver, see case 03/14/[address] Pang 05/10/2022 : No surgery Screening mammography 24 774220 Z12.31 [id number] Callie awad MD [facility] Internal Med [place] [address] [facility] , [place] [address] 10/25/2023 13:43:04 10/25/2023 14:45:46 Screening - NAD [id number] Z13.9 C-scope: 11/06/2020 : Dr Madison, next 10 years Mammogram: Last was in 11/01, is scheduled for this in [facility] 021: Neg 022: Neg 023: Neg 024: Neg DEXA: 11/21/18: OP, Dr De Los Santos, now on HCTZDEXA: 2020 : OP sees Dr De Los Santos for thisDEXA: 01/05/2023 : OP see Dr De Los Santos, on prolia and Kphos and HCTZ see case from Dr De Los Santos PAP: Seen in 01/2022 as per her history Get yearly flu shotGet tdap if not doneUTD on COVID 19 vaccineUTD PCV #13 03/01/2021 , get PCV #23Can do RSV vaccine RTC in 4 monthsGet labsER if worseShe and her did verbalize their understand ing of the above Essential hypertension 98835799 I10 ECHO 06/27/18: WNL On ASAOn HCTZ 25mg dailyNot on lisinopril 10mg dailyGet labs [facility] Dr Raygoza 10/19/2020 , f/u in one year Hyperlipidemia 40678867 E78.5 Not on fenofibrat eCan d/c this as LFT is elevated, more diet and exerciseGe t on atorvastat in 20mg daily, 10/25/2023 , all side effects explained to her and her Does wellGet labs Screening for malignant neoplasm of breast 659371381 Z12.[address] Alatorre, in [facility] Sees Dr Alatorre in 10/0209/20/18: Dr Papo Riggs is to continue with the tamoxifen and to also get a DEXA, next apt is in 6 months [employer] Raife 04/03/19: to continue with the tamoxifen 09/26/2019 : Dr Riggs and fellow Dr Rosaura Najera: to continue with the tamoxifen 10 years, and f/u in 6 months, also to take ca and vit d 2000IU daily On tamoxifen 20mg dailyFille d by Dr Parnell Hypothyroidism 60676592 E03.9 On euthyrox 50mcgs daily Does wellGet labs Seen Dr De Los Santos will refer 06/26/[address] Malin Osteoporosis 58136138 M8 1.[address] De Los Santos, s/p prolia on 02/02/2021 Increased liver function 88775728 R94.5 GGT/Hepati tis panel: Neg 04/20/2022 US liver 03/09/2022 : Fatty liver, see case 03/14/[address] Pang 05/10/2022 : No surgery Adult heal th examination 953315038 Z00.00 Screening for disorder 738139253 Z13.9 [id number] Callie awad MD [facility] [address] [facility] [place] [place] [address] 01/22/2024 13:48:47 01/22/2024 14:49:52 Screening - NAD 223458097 Z13.9 C-scope: 11/06/2020 : Dr Madison, next 10 years Mammogram: Last was in 11/01, is scheduled for this in [facility] 021: Neg 022: Neg 023: Neg 024: Neg DEXA: 11/21/18: OP, Dr De Los Santos, now on HCTZDEXA: 2020 : OP sees Dr De Los Santos for thisDEXA: 01/05/2023 : OP see Dr De Los Santos, on prolia and Kphos and HCTZ see case from Dr De Los Santos PAP: Seen in 01/2022 as per her history Get yearly flu shotGet tdap if not doneUTD on COVID 19 vaccineUTD PCV #13 03/01/2021 , get PCV #23Can do RSV vaccine RTC in 4 monthsGet labsER if worseShe and her did verbalize their understand ing of the above Essential hypertension 10245500 I10 ECHO 06/27/18: WNL On ASAOn HCTZ 25mg dailyNot on lisinopril 10mg dailyGet labs [facility] Dr Raygoza 10/19/2020 , f/u in one year Hyperlipidemia 52096428 E78.5 Not on fenofibrat eCan d/c this as LFT is elevated, more diet and exerciseGe t on atorvastat in 20mg daily, 10/25/2023 , all side effects explained to her and her Does wellGet labs Screening for malignant neoplasm of breast 986209466 Z12.[address] Alatorre, in [facility] Sees Dr Alatorre in 10/0209/20/18: Dr Papo Riggs is to continue with the tamoxifen and to also get a DEXA, next apt is in 6 months [employer] Raife 04/03/19: to continue with the tamoxifen 09/26/2019 : Dr Riggs and fellow Dr Rosaura Najera: to continue with the tamoxifen 10 years, and f/u in 6 months, also to take ca and vit d 2000IU daily On tamoxifen 20mg dailyFille d by Dr Parnell Hypothyroidism 27113005 E03.9 On euthyrox 50mcgs daily Does wellGet labs Seen Dr De Los Santos will refer 06/26/[address] Malin, referred again 01/22/2024 Osteoporosis 83990527 M8 1.[address] De Los Santos, s/p prolia on 02/02/2021 Increased liver function 34720848 R94.5 GGT/Hepati tis panel: Neg 04/20/2022 US liver 03/09/2022 : Fatty liver, see case 03/14/[address] Pang 05/10/2022 : No surgery Adult heal th examination 248297434 Z00.00 Screening for disorder 143925151 Z13.9 [id number] Callie awad MD [facility] Primary Care [facility] [address] [place] [address] 05/27/2024 14:04:50 05/27/2024 14:50:19 Screening - NAD 719630746 Z13.9 C-scope: 11/06/2020 : Dr Madison, next 10 years Mammogram: Last was in 11/01, is scheduled for this in [facility] 021: Neg 022: Neg 023: Neg 024: Neg DEXA: 11/21/18: OP, Dr De Los Santos, now on HCTZDEXA: 2020 : OP sees Dr De Los Santos for thisDEXA: 01/05/2023 : OP see Dr De Los Santos, on prolia and Kphos and HCTZ see case from Dr De Los Santos PAP: Seen in 01/2022 as per her history Get yearly flu shotGet tdap if not doneUTD on COVID 19 vaccineUTD PCV #13 03/01/2021 , get PCV #23Can do RSV vaccine RTC in 4 monthsGet labsER if worseShe and her did verbalize their understand ing of the above Essential hypertension 54596444 I10 ECHO 06/27/18: WNL On ASAOn HCTZ 25mg dailyNot on lisinopril 10mg dailyGet labs [facility] Dr Raygoza 10/19/2020 , f/u in one yearReferr ed 05/27/2024 again Hyperlipidemia 93372941 E78.5 Not on fenofibrat eCan d/c this as LFT is elevated, more diet and exerciseOn atorvastat in 20mg daily Does wellGet labs Screening for malignant neoplasm of breast 295384523 Z12.[address] Alatorre, in [facility] Sees Dr Alatorre in 10/0209/20/18: Dr Papo Riggs is to continue with the tamoxifen and to also get a DEXA, next apt is in 6 months [employer] Raife 04/03/19: to continue with the tamoxifen 09/26/2019 : Dr Riggs and fellow Dr Rosaura Najera: to continue with the tamoxifen 10 years, and f/u in 6 months, also to take ca and vit d 2000IU daily On tamoxifen 20mg dailyFille d by Dr Parnell on 02/29/2024 Hypothyroidism 30120138 E03.9 On euthyrox 50mcgs daily Does wellGet labs Seen Dr De Los Santos will refer 06/26/[address] Malin, referred again 01/22/2024 , 05/27/2024 Osteoporosis 15944868 M8 1.[address] De Los Santos, s/p prolia on 02/02/2021 Increased liver function 26944461 R94.5 GGT/Hepati tis panel: Neg 04/20/2022 US liver 03/09/2022 : Fatty liver, see case 03/14/[address] Pang 05/10/2022 : No surgeryRep eat the US liver Hypokalemia 46803604 E87 .6 Get labsGet on K Hyperproteinemia 0266804 9 E88.09 Get UPEP and SPEP [id number] Callie awad MD [facility] Primary Care [address] [place] [address] 09/02/2024 14:05:27 09/02/2024 15:24:19 Screening - NAD 315394878 Z13.9 C-scope: 11/06/2020 : Dr Madison, next 10 years Mammogram: Last was in 11/01, is scheduled for this in [facility] 021: Neg 022: Neg 023: Neg 024: Neg DEXA: 11/21/18: OP, Dr De Los Santos, now on HCTZDEXA: 2020 : OP sees Dr De Los Santos for thisDEXA: 01/05/2023 : OP see Dr De Los Santos, on prolia and Kphos and HCTZ see case from Dr De Los SantosDEXA: 08/14/2024 : OP, did see Dr Malin 06/11/2024 , told to keep on prolia, but cannot do this d/t insurance and will see him in 10/2024 PAP: Seen in 01/2022 as per her history Get yearly flu shotGet tdap if not doneUTD on COVID 19 vaccineUTD PCV #13 03/01/2021 , get PCV #23Can do RSV vaccine RTC in 4 monthsGet labsER if worseShe and her did verbalize their understand ing of the above Essential hypertension 80999549 I10 ECHO 06/27/18: WNL On ASAOn HCTZ 25mg dailyNot on lisinopril 10mg dailyGet labs [facility] Dr Raygoza 10/19/2020 , f/u in one yearReferr ed 05/27/2024 again Hyperlipidemia 21294835 E78.5 Not on fenofibrat eCan d/c this as LFT is elevated, more diet and exerciseOn atorvastat in 20mg daily Does wellGet labs Screening for malignant neoplasm of breast 420431773 Z12.[address] Alatorre, in [facility] Sees Dr Alatorre in 10/0209/20/18: Dr Papo Riggs is to continue with the tamoxifen and to also get a DEXA, next apt is in 6 months [employer] Raife 04/03/19: to continue with the tamoxifen 09/26/2019 : Dr Riggs and fellow Dr Rosaura Najera: to continue with the tamoxifen 10 years, and f/u in 6 months, also to take ca and vit d 2000IU daily On tamoxifen 20mg dailyFille d by Dr Parnell on 02/29/2024 Hypothyroidism 11042191 E03.9 On euthyrox 50mcgs daily Does wellGet labs Seen Dr De Los Santos will refer 06/26/[address] Malin, referred again 01/22/2024 , 05/27/2024 Dr Colmenares 06/11/2024 Osteoporosis 46239379 M8 1.[address] De Los Santos, s/p prolia on 02/02/2021 Increased liver function 00173585 R94.5 GGT/Hepati tis panel: Neg 04/20/2022 US liver 03/09/2022 : Fatty liver, see case 03/14/[address] Pang 05/10/2022 : No surgeryRep eat the US liver Screening mammography 24 615410 Z12.31 Screening for osteoporosis 429405113 Z13.820 Health Concerns Section Related Observation LastModified by Organization Detai ls LastModified Time None Recorded Concern Status LastModified by Organization Details LastModified Time None Recorded Advance Directives Directive N: Payers Encounter Date Sequence Insurance Name Policy Number Policy Muñiz Covered Member ID Muñiz Member ID Guarantor Name 06/26/2023 1 [employer] (MEDICARE REPLACEMENT/AD VANTAGE - HMO) [id number] Eunhee K Ryoo [id number] Eunhee Ryoo 06/26/2023 2 [place] OR MEDICARE REPLACEMENT PRIMARY) Eunhee Ryoo [id number] Eunhee Ryoo 10/25/2023 1 [employer] (MEDICARE REPLACEMENT/AD VANTAGE - HMO) [id number] Eunhee K Ryoo [id number] Eunhee Ryoo 10/25/2023 2 [place] OR MEDICARE REPLACEMENT PRIMARY) Eunhee Ryoo [id number] Eunhee Ryoo 01/22/2024 1 [employer] (MEDICARE REPLACEMENT/AD VANTAGE - HMO) [id number] Eunhee K Ryoo [id number] Eunhee Ryoo 01/22/2024 2 [place] OR MEDICARE REPLACEMENT PRIMARY) Eunhee Ryoo [id number] Eunhee Ryoo 05/27/2024 1 [employer] (MEDICARE REPLACEMENT/AD VANTAGE - HMO) [id number] Eunhee K Ryoo [id number] Eunhee Ryoo 05/27/2024 2 [place] WHEN [place]ICARE OR MEDICARE REPLACEMENT PRIMARY) Eunhee Ryoo [id number] Eunhee Ryoo 09/02/2024 1 [employer] (MEDICARE REPLACEMENT/AD VANTAGE - HMO) [id number] Eunhee K Ryoo [id number] Eunhee Ryoo 09/02/2024 2 [place] WHEN MEDICARE OR MEDICARE REPLACEMENT PRIMARY) Eunhee Ryoo [id number] Eunhee Ryoo Notes Date Note Type Note Provider Name and Address Organization Details Recorded Time 06/26/2023 text/html Here to yoselin millerPMD: Dr Bashir last OV this 2017 Past Hx:HypothyroidismBre ast cancerReviewed social family and surgical history Here to establish careHere with her husbandShe states that she is doing well at this timeShe would like to get labs for her 'thyroid test' OV 04/04/18:Here for her routine aptShe did do the labsHere with her , and is doing well OV 06/13/18:Here with her husbandShe states that she has noted her HR to be 'up' since about 10 daysLast week she did feel slightly dizzy and as per her she was 'white'She denies any palpitations, syncope, presyncope, SOB, BECKETT, chest painShe states that she just was having an elevated HR and does not otherwise feel any symptoms, her states that he was worried and wanted to 'check this out'In the am she was told to see cardiology, but she cannot do that till next week OV 08/01/18:Here with her husbandFeels that she is doing well at this timeShe did do the labs and is here to review these OV 11/21/18:Here for her routine aptShe is here with husbandShe did do the labs and also saw the endo OV 12/03/18:Here as she would like to discuss her mammogramNo other complaints OV 07/31/2019:Here for her routine aptShe is here with her husbandShe has seen Dr De Los Santos and Dr Jimenez did do the labs on 07/22/2019 OV 09/28/2020:Here for her yearly apt with her husbandShe did do the labsShe feels well today OV 03/01/2021:Here for her routine aptShe is doing well, she is here with her husbandShe did do the labs on 02/22/2021 OV 09/01/2021:Here for her routine apt with her husbandShe is doing well todayShe did the labs on 08/25/2021 OV 03/02/2022:Here for her routine apt and MWVShe is here with her , zeny Baer did do the labs OV 08/10/2022:Here for her f/u apt and also for wellness visit, she is doing well, here with her , she did do the labs OV 02/06/2023: Here for her f/u apt, she is doing well OV 06/26/2023: Here for her f/u apt, she is doing well today, she is here with her , she did do her labs Callie Teixeira MD [address], [address], [place], [address], [place] [facility] 06/26/2023 18:38:21 10/25/2023 text/html Here to establis h carePMD: Dr Bashir last OV this 2017 Past Hx:HypothyroidismBre ast cancerReviewed social family and surgical history Here to establish careHere with her husbandShe states that she is doing well at this timeShe would like to get labs for her 'thyroid test' OV 04/04/18:Here for her routine aptShe did do the labsHere with her , and is doing well OV 06/13/18:Here with her husbandShe states that she has noted her HR to be 'up' since about 10 daysLast week she did feel slightly dizzy and as per her she was 'white'She denies any palpitations, syncope, presyncope, SOB, BECKETT, chest painShe states that she just was having an elevated HR and does not otherwise feel any symptoms, her states that he was worried and wanted to 'check this out'In the am she was told to see cardiology, but she cannot do that till next week OV 08/01/18:Here with her husbandFeels that she is doing well at this timeShe did do the labs and is here to review these OV 11/21/18:Here for her routine aptShe is here with husbandShe did do the labs and also saw the endo OV 12/03/18:Here as she would like to discuss her mammogramNo other complaints OV 07/31/2019:Here for her routine aptShe is here with her husbandShe has seen Dr De Los Santos and Dr Jimenez did do the labs on 07/22/2019 OV 09/28/2020:Here for her yearly apt with her husbandShe did do the labsShe feels well today OV 03/01/2021:Here for her routine aptShe is doing well, she is here with her husbandShe did do the labs on 02/22/2021 OV 09/01/2021:Here for her routine apt with her husbandShe is doing well todayShe did the labs on 08/25/2021 OV 03/02/2022:Here for her routine apt and MWVShe is here with her , feels wellShe did do the labs OV 08/10/2022:Here for her f/u apt and also for wellness visit, she is doing well, here with her , she did do the labs OV 02/06/2023: Here for her f/u apt, she is doing well OV 06/26/2023: Here for her f/u apt, she is doing well today, she is here with her , she did do her labs OV 10/25/2023: Here for her routine apt and her MWV, she is doing well at this time, she is here with her Callie Teixeira MD [address] [facility], [address], [place], [address], [place] [facility] [employer] On 10/25/2023 16:29:39 01/22/2024 text/html Here to yoselin FelixD: Dr Bashir last OV this Hx:HypothyroidismBre ast cancerReviewed social family and surgical historyHere to establish careHere with her husbandShe states that she is doing well at this timeShe would like to get labs for her 'thyroid test' OV 04/04/18:Here for her routine aptShe did do the labsHere with her , and is doing well OV 06/13/18:Here with her husbandShe states that she has noted her HR to be 'up' since about 10 daysLast week she did feel slightly dizzy and as per her she was 'white'She denies any palpitations, syncope, presyncope, SOB, BECKETT, chest painShe states that she just was having an elevated HR and does not otherwise feel any symptoms, her states that he was worried and wanted to 'check this out'In the am she was told to see cardiology, but she cannot do that till next week OV 08/01/18:Here with her husbandFeels that she is doing well at this timeShe did do the labs and is here to review these OV 11/21/18:Here for her routine aptShe is here with husbandShe did do the labs and also saw the endo OV 12/03/18:Here as she would like to discuss her mammogramNo other complaints OV 07/31/2019:Here for her routine aptShe is here with her husbandShe has seen Dr De Los Santos and Dr Jimenez did do the labs on 07/22/2019 OV 09/28/2020:Here for her yearly apt with her husbandShe did do the labsShe feels well today OV 03/01/2021:Here for her routine aptShe is doing well, she is here with her husbandShe did do the labs on 02/22/2021 OV 09/01/2021:Here for her routine apt with her husbandShe is doing well todayShe did the labs on 08/25/2021 OV 03/02/2022:Here for her routine apt and MWVShe is here with her , feels wellShe did do the labs OV 08/10/2022:Here for her f/u apt and also for wellness visit, she is doing well, here with her , she did do the labs OV 02/06/2023: Here for her f/u apt, she is doing well OV 06/26/2023: Here for her f/u apt, she is doing well today, she is here with her , she did do her labs OV 10/25/2023: Here for her routine apt and her MWV, she is doing well at this time, she is here with her OV 01/22/2024: Here for her f/u ap, she is doing well today, here with her Callie Teixeira MD [address] [place] [address], [address] [place] [address], [place], [address], [facility] Thrill On 02/05/2024 14:29:35 05/27/2024 text/html Here to yoeslin millerPMD: Dr Bashir last OV this 2017Pa Hx:HypothyroidismBre ast cancerReviewed social family and surgical historyHere to establish careHere with her husbandShe states that she is doing well at this timeShe would like to get labs for her 'thyroid test' OV 04/04/18:Here for her routine aptShe did do the labsHere with her , and is doing well OV 06/13/18:Here with her husbandShe states that she has noted her HR to be 'up' since about 10 daysLast week she did feel slightly dizzy and as per her she was 'white'She denies any palpitations, syncope, presyncope, SOB, BECKETT, chest painShe states that she just was having an elevated HR and does not otherwise feel any symptoms, her states that he was worried and wanted to 'check this out'In the am she was told to see cardiology, but she cannot do that till next week OV 08/01/18:Here with her husbandFeels that she is doing well at this timeShe did do the labs and is here to review these OV 11/21/18:Here for her routine aptShe is here with husbandShe did do the labs and also saw the endo OV 12/03/18:Here as she would like to discuss her mammogramNo other complaints OV 07/31/2019:Here for her routine aptShe is here with her husbandShe has seen Dr De Los Santos and Dr Jimenez did do the labs on 07/22/2019 OV 09/28/2020:Here for her yearly apt with her husbandShe did do the labsShe feels well today OV 03/01/2021:Here for her routine aptShe is doing well, she is here with her husbandShe did do the labs on 02/22/2021 OV 09/01/2021:Here for her routine apt with her husbandShe is doing well todayShe did the labs on 08/25/2021 OV 03/02/2022:Here for her routine apt and MWVScammie is here with her , zeny Baer did do the labs OV 08/10/2022:Here for her f/u apt and also for wellness visit, she is doing well, here with her , she did do the labs OV 02/06/2023: Here for her f/u apt, she is doing well OV 06/26/2023: Here for her f/u apt, she is doing well today, she is here with her , she did do her labs OV 10/25/2023: Here for her routine apt and her MWV, she is doing well at this time, she is here with her OV 01/22/2024: Here for her f/u ap, she is doing well today, here with her OV 05/27/2024: Here for her f/u apt, she feels well today, she is here with her , she did do the labs Callie Teixeira MD [address], [address], [place], [address], [place] [facility] 05/27/2024 14:46:28 09/02/2024 text/html Here to yoselin Morales: Dr Bashir last OV this Hx:HypothyroidismBre ast cancerReviewed social family and surgical historyHere to establish careHere with her husbandShe states that she is doing well at this timeShe would like to get labs for her 'thyroid test' OV 04/04/18:Here for her routine aptShe did do the labsHere with her , and is doing well OV 06/13/18:Here with her husbandShe states that she has noted her HR to be 'up' since about 10 daysLast week she did feel slightly dizzy and as per her she was 'white'She denies any palpitations, syncope, presyncope, SOB, BECKETT, chest painShe states that she just was having an elevated HR and does not otherwise feel any symptoms, her states that he was worried and wanted to 'check this out'In the am she was told to see cardiology, but she cannot do that till next week OV 08/01/18:Here with her husbandFeels that she is doing well at this timeShe did do the labs and is here to review these OV 11/21/18:Here for her routine aptShe is here with husbandShe did do the labs and also saw the endo OV 12/03/18:Here as she would like to discuss her mammogramNo other complaints OV 07/31/2019:Here for her routine aptShe is here with her husbandShe has seen Dr De Los Santos and Dr Jimenez did do the labs on 07/22/2019 OV 09/28/2020:Here for her yearly apt with her husbandShe did do the labsShe feels well today OV 03/01/2021:Here for her routine aptShe is doing well, she is here with her husbandShe did do the labs on 02/22/2021 OV 09/01/2021:Here for her routine apt with her husbandShe is doing well todayShe did the labs on 08/25/2021 OV 03/02/2022:Here for her routine apt and MWVShe is here with her , josués Keyur did do the labs OV 08/10/2022:Here for her f/u apt and also for wellness visit, she is doing well, here with her , she did do the labs OV 02/06/2023: Here for her f/u apt, she is doing well OV 06/26/2023: Here for her f/u apt, she is doing well today, she is here with her , she did do her labs OV 10/25/2023: Here for her routine apt and her MWV, she is doing well at this time, she is here with her OV 01/22/2024: Here for her f/u ap, she is doing well today, here with her OV 05/27/2024: Here for her f/u apt, she feels well today, she is here with her , she did do the labs OV 09/02/2024: Here for her f/u apt, she feels well today, she is here with her today Callie Teixeira MD [address] [place] [address], [address] [address], [place], [address], [place] [facility] 09/02/2024 16:16:00 OBGyn Episode No OBEpisode recorded.
--- OUTSIDE RECORDS SUMMARY | 2024-09-23 11:55 | XMS_ITS | Encounter Summary ---
Author Organization [facility] Address [address] [place] [address] Phone Care Team Providers Care Microsoft Exchange Architect Name Role Phone Rufus Teixeira MD Primary Care Provide r Encounter Details Date Type Department Care Team (Latest Contact Info) Description 12/12/2018 Orders Only [facility] Scanning, Provider Social History Tobacco Use Types Packs/Day Years Used Date Smoking Tobacco: Never Smokeless Tobacco: Never Comments Unknown Sex and Gender Information Value Date Recorded Sex Assigned at Not on file 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 Gender Identity Not on file Sexual Orientation Not on file documented as of this encounter Plan of Treatment Not on file documented as of this encounter Procedures Procedure Name Priority Date/Time Associated Diagnosis Comments SCAN - RADIOLOGY/IMAGING 12/12/2018 documented in this encounter Results * SCAN - RADIOLOGY/IMAGING (12/12/2018) Anatomical Region Laterality Modality Other us Provider Scanning Final Result documented in this encounter Visit Diagnoses Not on filedocumented in this encounter Care Teams Microsoft Exchange Architect Relationship Specialty Start Date End Date Rufus Teixeira MD [address] [address] PCP - General Internal Medicine 03/22/18 documented as of this encounter
--- OUTSIDE RECORDS SUMMARY | 2024-09-23 11:55 | XMS_ITS | Encounter Summary ---
Author Organization [facility] Address [address] [place] [address] Phone Care Team Providers Care Professor Of Astronomy Name Role Phone Rufus Teixeira MD Primary Care Provide r Encounter Details Date Type Department Care Team (Latest Contact Info) Description 11/26/2018 Orders Only [facility] Scanning, Provider Social History Tobacco Use Types Packs/Day Years Used Date Smoking Tobacco: Never Smokeless Tobacco: Never Comments Unknown Sex and Gender Information Value Date Recorded Sex Assigned at Not on file 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 Gender Identity Not on file Sexual Orientation Not on file documented as of this encounter Plan of Treatment Not on file documented as of this encounter Procedures Procedure Name Priority Date/Time Associated Diagnosis Comments SCAN - RADIOLOGY/IMAGING 11/26/2018 documented in this encounter Results * SCAN - RADIOLOGY/IMAGING (11/26/2018) Anatomical Region Laterality Modality Other us Provider Scanning Final Result documented in this encounter Visit Diagnoses Not on filedocumented in this encounter Care Teams Professor Of Astronomy Relationship Specialty Start Date End Date Rufus Teixeira MD [address] [facility] [address] [place] [address] PCP - General Internal Medicine 03/22/18 documented as of this encounter
--- OUTSIDE RECORDS SUMMARY | 2024-09-23 11:55 | XMS_ITS | Encounter Summary ---
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 POISONER Gender Identity Not on file Sexual Orientation Not on file documented as of this encounter Plan of Treatment Not on file documented as of this encounter Procedures Procedure Name Priority Date/Time Associated Diagnosis Comments SCAN - RADIOLOGY/IMAGING 09/22/2020 documented in this encounter Results * SCAN - RADIOLOGY/IMAGING (09/22/2020) Anatomical Region Laterality Modality Other us Provider Scanning Final Result documented in this encounter Visit Diagnoses Not on filedocumented in this encounter Care Teams Gas Stove Servicer Helper Relationship Specialty Start Date End Date Rufus Teixeira MD [address] [address] PCP - General Internal Medicine 03/22/18 documented as of this encounter
--- OUTSIDE RECORDS SUMMARY | 2024-09-23 11:55 | XMS_ITS | Clinical Summary ---
Author Organization [facility] Address [address] [facility] [place] [address] Care Team Providers Care Home Health Aide Name Role Phone Warner Bashir DO Primary Care Provider Source Comments [facility] [employer],non-owned Affiliates and Associated Physician Practices is amultiple site organization consisting of ambulatory clinics and hospital sitesin [place], [place], [place] and [place]. This disclosure is being madepursuant to the Care Everywhere program and may not contain all information available regarding this patient. Last updated 18.[facility] [employer] Allergies No known active allergies Medications * Be aware that medications may not be up to date on this document. Alwaysverify current medications with the patient. 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 Pulse 102 05/22/2018 2:43 PM ELECTRIC REPAIR SUPERVISOR Temperature - - Respiratory Rate - - Oxygen Saturation - - Inhaled Oxygen Concentration - - Weight - - Height - - Body Mass Index - - Plan of Treatment Health Maintenance Due Date Last Done Comments BONE DENSITY TESTING 1955 COLOGUARD (AGES 45-75) - COL ON CA SCREENING 1955 COLON MONITORING 1955 COLONOSCOPY - COLON CA SCREENING 1955 CT COLONOGRAPHY - COLON CA SCREENING 1955 Colorectal Cancer Screening 1955 FIT - COLON CA SCREENING 1955 FLEX SIG - COLON CA SCREENING 1955 MAMMOGRAM 1955 HEPATITIS C SCREENING 11/29/1973 DTAP/TDAP/TD VACCINES (1 - Tdap) 12/03/1974 PNEUMOCOCCAL VACCINE 50+ (1 of 1 - PCV) 12/03/2005 ZOSTER VACCINE (1 of 2) 12/03/2005 COVID-19 VACCINE (1 - 2023-2 5 season) 2024 INFLUENZA VACCINE (#1) 2024 DEPRESSION SCREENING 07/17/2024 MEDICARE AWV CALENDAR YEAR 2024 Respiratory Syncytial Virus (RSV) Vaccine Pt: or over 60 yrs (1 - 1-dose 75+ series) 12/03/2030 HEPATITIS B VACCINE Aged Out No longe r eligible based on patient's age to complete this topic HIB VACCINE Aged Out No longer eligi ble based on patient's age to complete this topic HPV VACCINE Aged Out No longer eligi ble based on patient's age to complete this topic MENINGOCOCCAL (Group B) VACCINE Aged Out No longer eligible based on patient's age to complete this topic MENINGOCOCCAL VACCINE Aged Out No ez gary eligible based on patient's age to complete this topic Care Teams Home Health Aide Relationship Specialty Start Date End Date Warner Bashir DO PCP - General 09/23/16
--- OUTSIDE RECORDS SUMMARY | 2024-09-23 11:55 | XMS_ITS | Referral Summary ---
Author Organization [facility] Address [address] [facility] [place] [address] Care Team Providers Care Kitchen Food Server Name Role Phone Warner Bashir DO Primary Care Provider Source Comments [facility],non-owned Affiliates and Associated Physician Practices is amultiple site organization consisting of ambulatory clinics and hospital sitesin [place], [place], [place] and [place]. This disclosure is being madepursuant to the Care Everywhere program and may not contain all information available regarding this patient. Last updated 18.[facility] Allergies No known active allergies Medications * [...] Comments Blood Pressure 145/92 05/22/2018 2:43 PM SYSTEMS TESTER Pulse 102 05/22/2018 2:43 PM SYSTEMS TESTER Temperature - - Respiratory Rate - - Oxygen Saturation - - Inhaled Oxygen Concentration - - Weight - - Height - - Body Mass Index - - Plan of Treatment Not on file Care Teams Kitchen Food Server Relationship Specialty Start Date End Date Warner Bashir DO PCP - General 09/23/16
[2024-09-24 07:24] LABS: C-Peptide 1.84 ng/mL (0.80-3.85)
== END 2024-09-23 10:11 | disposition home or self-care (01) ==
PROVIDERS: PCP Internal Medicine; Visit Provider Internal Medicine
DX: M81.0 Age-related osteoporosis without current pathological fracture (principal)
CPT/HCPCS: 36415; 72072; 80053; 82306; 83970; 84100; 84681

== ENCOUNTER 2024-11-12 10:50 | Outpatient (CLI) | payer MEDICARE, SELFPAY ==
--- NOTE | ~2024-11-12 | US_ITS ---
Limited Abdominal Sonogram: Real-time sonographic imaging of the right upper quadrant was performed. Clinical History: Abnormal LFTs Findings: The liver appears normal with no evidence of mass lesion or bile duct dilatation. Main por ramu vein demonstrates normal direction of flow. The gallbladder is well distended, and appears normal with no evidence of gallstone or wall thickening. The common bile duct measures 2 mm. The visualize d pancreas, aorta, and IVC are unremarkable. Impression: No significant abnormality seen. Reviewed, dictated and finalized at location . Impression: No significant abnormality seen.
--- OUTSIDE RECORDS SUMMARY | 2024-11-12 12:15 | XMS_ITS | Encounter Summary ---
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
--- OUTSIDE RECORDS SUMMARY | 2024-11-12 12:15 | XMS_ITS | Encounter Summary ---
Author Organization [facility] Address [address] [place] [address] Phone Care Team Providers Care Hypo Dipper Name Role Phone Rufus Teixeira MD Primary [...] on file Legal Sex Female 7:27 AM MONITORING TECH Gender Identity Not on file Sexual Orientation [...] on filedocumented in this encounter Care Teams Hypo Dipper Relationship Specialty Start Date End Date Rufus Teixeira MD [address] [facility] [address] [place] [address] PCP - General Internal Medicine 03/22/18 documented as of this encounter
--- OUTSIDE RECORDS SUMMARY | 2024-11-12 12:15 | XMS_ITS | Clinical Summary ---
Author Organization [facility] Address [address] [place] [address] Care Team Providers Care Behavioral Analyst Name Role Phone Rufus Teixeira MD Primary Care Provide r Allergies No known active allergies Medications calcium carbonate-vitamin D3 1,500 mg (600mg elemental) -800 unit per tablet daily. Acti ve pqemz-9-utp-epa-dp a-fish oil 1,050-1,200 mg capsule daily. Active magnesium oxide 500 mg capsule 2 times daily. Active multivitamin tabletIndications: Vitamin Deficiency Prevention daily. Active pravastatin (PRAVACHOL) 20 mg tablet 018 Active vitamin B complex capsule daily. Active ergocalciferol (VITAMIN D) 50,000 unit capsule Take 1 capsule (50,000 Units total) by mouth once a week 12 capsule 019 Active Additional Information Patient not taking.Reported on 09/26/2024 aspirin 81 mg enteric coated tablet daily Active influenza quadrivalent 5875-7622 (FLULAVAL,FLUARIX) 60 mcg (15 mcg x 4)/0.5 mL syringe Fluarix Quad 9416-5856 (PF) 60 mcg (15 mcg x 4)/0.5 [...] once daily 90 tablet 3 025 Active Active Problems Problem Noted Date Diagnosed Date Encounter for follow-up surveillance of breast c ancer 09/21/2022 ER+ (estrogen receptor positive status) 09/22/19 23 Selective estrogen receptor modulator (SERM) adm inistered 09/21/2022 Carcinoma of central portion of right breast in female, estrogen receptor positive 09/21/2015 Encounters Date Type Department Care Team Description 09/26/2024 1:40 PM CDT Office Visit [facility] Oncology [address] [place] [address] Papo Parnell MD Carcinoma of central portion of right breast in female, estrogen receptor positive (HCC) (Primary Dx); Encounter for follow-up surveillance of breast cancer; ER+ (estrogen receptor positive status) 09/26/2024 1:00 PM CDT Lab [facility] - Lab Collection [facility] [facility] Floor [address] [place] [address] Encounter for follow-up surveillance of breast cancer; ER+ (estrogen receptor positive status) from Last 3 Months Immunizations Immunization Administration Dates Next Due COVID-19 MRNA (MODERNA) .5 M L (50 MCG) VACCINE (12 YEARS AND UP) 06/22/2023 Influenza, Quadrivalent, Rec ombinant, Egg Free, Preservative Free, Intramuscular 05/01/2020 Influenza, Quadrivalent, Spl it, Intramuscular 05/01/2020,06/03/2019 Influenza, Quadrivalent, Spl it, Preservative Free, Intramuscular 06/29/2021,05/24/2019,05/07/2018,04/15,05/23/2016 Influenza, Trivalent, High D ose, Split, Preservative Free, Intramuscular 06/22/2023,05/27/2022,05/04/2022,06/02 Influenza, Trivalent, IM (MDV) 04/18/2021 Influenza, Trivalent, Preser vative Free, Intramuscular 06/09/2015 Moderna SARS-CoV-2 Monovalen t Vaccination (12+ YRS) 09/28/2020 Pfizer Sars-Cov-2 Bivalent V accination (12+ YRS) 05/26/2022 Pneumococcal Conjugate PCV 13 03/02/2021 Pneumococcal Polysaccharide PPV23 08/10/2022 Surgical History Surgery Date Site/Laterality Comments US UNLISTED PROCEDURE LYMPH SYSTEM 08/25/2015 N/A Family History Relation Name Status Comments Father Mother Social History Tobacco Use Types Packs/Day Years Used Date Smoking Tobacco: Never Smokeless Tobacco: Never Comments Unknown Sex and Gender Information Value Date Recorded Sex Assigned at Not on file Legal Sex 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 Gender Identity Not on file Sexual Orientation Not on file Obstetrics History Last Filed Vital Signs Vital Sign Reading Time Taken Comments Blood Pressure 148/82 09/26/2024 12:53 PM CDT Pulse 99 09/26/2024 12:53 PM CDT Temperature 36.8 C (98.3 F) 09/26/2024 12:53 PM CDT Respiratory Rate 18 09/26/2024 12:53 PM CDT Oxygen Saturation 97% 09/26/2024 12:53 PM CDT Inhaled Oxygen Concentration - - Weight 53.3 kg (117 lb 9.6 oz) 09/26/2024 12:53 PM CDT Height 160 cm (5' 3 ) 09/26/2024 12:53 PM CDT Body Mass Index 20.83 09/26/2024 12:53 PM CDT Plan of Treatment Health Maintenance Due Date Last Done Comments Colon Cancer Screening-Colonoscopy 1955 Depression Screening 1955 Fall Risk Assessment 1955 DTaP/Tdap/Td Vaccine (1 - Tdap) 12/03/1966 Hepatitis B Screening 12/03/1973 Zoster Vaccine (1 of 2) 12/03/1974 Breast Cancer Screening-Mammogram 07/27/2016 016 Osteoporosis Screening-Bone Density Scan 10/13/2018 10/13/2016 Well Visit 65+ 12/03/2020 Covid-19 Vaccine (2023-2 5 season) 2024 06/22/2023, 05/26/2022, 07/12/2021, Additional history exists Influenza Vaccine (Season Ended) 2025 06/22/2023, 05/27/2022, 05/04/2022, Additional history exists Hepatitis C Screening Completed 08/25/2015 Pneumococcal vaccine 65+ Completed 08/10/2022, 02/14 Procedures Procedure Name Priority Date/Time Associated Diagnosis Comments EGFR Routine 09/26/2024 12:40 PM CDT Encounter for follow-up surveillance of breast cancer ER+ (estrogen receptor positive status) COMPREHENSIVE METABOLIC PANEL Routine 09/26/2024 12:40 PM CDT Encounter for follow-up surveillance of breast cancer ER+ (estrogen receptor positive status) VITAMIN D 25 HYDROXY Routine 09/26/2024 12:40 PM CDT Encounter for follow-up surveillance of breast cancer ER+ (estrogen receptor positive status) CANCER ANTIGEN 15-3 Routine 09/26/2024 1 2:40 PM CDT Encounter for follow-up surveillance of breast cancer ER+ (estrogen receptor positive status) BONE MINERAL DENSITY 10/13/2016 SERUM HEPATITIS C AB Routine 08/25/2015 7:00 AM PREMIUM NOTE INTEREST CALCULATOR CLERK DIAGNOSTIC MAMMOGRAM BILATERAL W ADIN Routine 07/27/2015 1:39 PM PREMIUM NOTE INTEREST CALCULATOR CLERK from Last 3 Months or Most Recently Relevant to Health Maintenance Results * eGFR (09/26/2024 12:40 PM CDT) eGFR >90 >=60 mL/min/1. 73 m2 Comment: Interpretive Data Reference Interval Normal >/= 90 mL/min/1.73m2 Mildly decreased* 60 - 89 mL/min/1.73m2 Mildly to moderately decreased 45 - 59 mL/min/1.73m2 Moderately to severely decreased 30 - 44 mL/min/1.73m2 Severely decreased 15 - 29 mL/min/1.73m2 Kidney Failure < 15 mL/min/1.73m2 *Relative to young adult level Estimated glomerular filtration rate is determined by the 2020 CKD-EPI equation recommended by the National Kidney Foundation (A Unifying Approach to GFR Estimation: Recommendations of the NKF-ASK Task Force on Reassessing the Inclusion of Race in Diagnosing Kidney Disease, JASN 2020). The CKD-EPI equation should not be used for patients with unstable renal function and has not been validated in children and those over 70. Current interpretive data was last reviewed 2021. Blood 09/26/2024 12:4 0 PM CDT 09/26/2024 12:44 PM CDT Papo Parnell MD LAB BLOOD ORDERABLES Final Result Performing Organization Address City/State/[facility] Co md Phone Number [facility] Department of Laboratories [place], [place] [id number] * Cancer antigen 15-3 (09/26/2024 12:40 PM CDT) CA 15-3 ag 9.8 <=25.0 units/mL Comment: Interpretive Data The Vane CA 15-3 assay procedure was used. Results from different manufacturers or methods may not be comparable. Serial testing should be performed using the same method. Blood 09/26/2024 12:4 0 PM CDT 09/26/2024 1:08 PM CDT Papo Parnell MD LAB BLOOD ORDERABLES Final Result [facility] [place] [address] * Vitamin D 25 hydroxy (09/26/2024 12:40 PM CDT) Pathologist [facility] Vitamin D 25-OH 50 30 - 80 ng/mL Blood 09/26/2024 12:4 0 PM CDT 09/26/2024 12:44 PM CDT Papo Parnell MD LAB BLOOD ORDERABLES Final Result Performing Organization Address [facility] Co de Phone Number [facility] [place] [address] * (ABNORMAL) Comprehensive metabolic panel (09/26/2024 12:40 PM CDT) [facility] Sodium 143 135 - 145 mmol/L Potassium, pl 3.7 3.3 - 4.9 mmol/L [facility] Chloride 105 97 - 110 mmol/L [facility] CO2 30 22 - 32 mmol/L [facility] Anion gap 8 2 - 15 mmol/L [facility] BUN 12 6 - 25 mg/dL [facility] Creatinine 0.53(L) 0.60 - 1.10 mg/dL [facility] Glucose 122 70 - 199 mg/dL [facility] Comment: Interpretive Data Fasting glucose >/= 126 mg/dl is diagnostic for diabetes. Fasting is defined as no caloric intake for at least 8 hours. Fasting glucose between 100 mg/dl to 125 mg/dl is diagnostic of prediabetes. In a patient with classic symptoms of hyperglycemia or hyperglycemic crisis, a random glucose >/= 200 mg/dl is diagnostic for diabetes. In the absence of unequivocal hyperglycemia, results should be confirmed by repeat testing. The classification and Diagnosis of Diabetes Diabetes Care 2021; 46: S19-S40. Current interpretive data was last revised 2022. Calcium 10.1 8.5 - 10.3 mg/dL [facility] Bilirubin, total 0.2 0.1 - 1.2 mg/dL [facility] Protein, pl 7.7 6.5 - 8.5 g/dL [facility] Albumin 4.4 3.5 - 5.0 g/dL [facility] Alk phos 44 40 - 130 Units/L [facility] ALT 19 7 - 45 Units/L [facility] AST 22 10 - 45 Units/L [facility] Blood 09/26/2024 12:4 0 PM CDT 09/26/2024 12:44 PM CDT Papo Parnell MD LAB BLOOD ORDERABLES Final Result Performing Organization Address City/[facility]/ZIP Co de Phone Number [facility] Department [place] [address] * BONE MINERAL DENSITY (10/13/2016) Anatomical Region Laterality Modality Radiographic Kaci ging Narrative 10/13/2016 Ordered by an unspecified provider. Historical Provider IMG DXA PROCEDURES Final Result * Serum Hepatitis C ab (08/25/2015 7:00 AM PREMIUM NOTE INTEREST CALCULATOR CLERK) HCV ab Negative NEG HISTORICAL RESULTS Serum 08/25/2015 7:00 AM PREMIUM NOTE INTEREST CALCULATOR CLERK Narrative HISTORICAL RESULTS - 08/26/2015 4:40 AM PREMIUM NOTE INTEREST CALCULATOR CLERK Interpretive Data If confirmation is required, call Laboratory Customer Service to request sample to be sent to [facility] for Hepatitis C Virus (HCV) RNA Detection and Quantitation by Real-Time Reverse Mechanical Manufacturing Engineer-PCR (RT-PCR). Current interpretive data was last revised on 2011 Historical Provider LAB BLOOD ORDERABLES Graciela l Result HISTORICAL RESULTS * Diagnostic Mammogram Bilateral W Adin (07/27/2015 1:39 PM PREMIUM NOTE INTEREST CALCULATOR CLERK) Anatomical Region Laterality Modality Breast Bilateral Mammography 07/27/2015 1:39 PM PREMIUM NOTE INTEREST CALCULATOR CLERK Narrative 07/27/2015 3:25 PM PREMIUM NOTE INTEREST CALCULATOR CLERK ZAINAB SHARIF M.D. DM CHRISTINA, FINAL REPORT The radiology attending physician has personally reviewed this study, and has reviewed and/or edited this written report and agrees with it. ACC# Date Time Exam [id number] Jul 27, 2015 13:39:00 [facility] [id number] Diag Mammogram Bilateral Technologist(s): Aretha Massey; ; [id number] Jul 27, 2015 13:48:00 [facility] 24760 Breast US unilateral, ltd R [id number] Jul 27, 2015 13:39:00 [facility] 91672 Dig Breast Adin Angelo ACC# Date Time Exam [id number] Jul 27, 2015 13:39:00 [facility] 77843 Diag Mammogram Bilateral Technologist(s): Aretha Massey; ; [id number] Jul 27, 2015 13:48:00 [facility] 50615 Breast US unilateral, ltd R [id number] Jul 27, 2015 13:39:00 [facility] 56330 Dig Breast Adin Angelo EXAMINATION: BILATERAL FULL FIELD DIGITAL DIAGNOSTIC MAMMOGRAM, DIGITAL BILATERAL BREAST TOMOSYNTHESIS, AND RIGHT BREAST SONOGRAM A full field digital mammogram was performed. Computer Aided Detection was performed with Studio Moderna 1.3 version 9.3. HISTORY: 59-year-old woman with a large palpable mass in the right breast with overlying skin discoloration. The mass has been present for over 2 years according to patient. MAMMOGRAM TECHNIQUE: Bilateral full Field digital diagnostic mammogram, digital bilateral breast tomosynthesis. A full field digital mammogram was performed. Computer Aided Detection was performed with Studio Moderna 1.3 version 9.3. COMPARISON: No priors available. [...] SHARIF M.D. on Jul 27 2015 3:25P [id number] Procedure Note Provider, MD Sharla - 11/20/2016 ZAINAB SHARIF M.D. DM CHRISTINA, FINAL REPORT The radiology attending physician has personally reviewed this study, and has reviewed and/or edited this written report and agrees with it. ACC# Date Time Exam [id number] Jul 27, 2015 13:39:00 [facility] 00666 Diag Mammogram Bilateral Technologist(s): Aretha Massey; ; [id number] Jul 27, 2015 13:48:00 [facility] 08106 Breast US unilateral, ltd R [id number] Jul 27, 2015 13:39:00 [facility] 38521 Dig Breast Adin Angelo ACC# Date Time Exam [id number] Jul 27, 2015 13:39:00 [facility] 70662 Diag Mammogram Bilateral Technologist(s): Aretha Massey; ; [id number] Jul 27, 2015 13:48:00 [facility] 93177 Breast US unilateral, ltd R [id number] Jul 27, 2015 13:39:00 [facility] 33521 Dig Breast Adin Angelo EXAMINATION: BILATERAL FULL FIELD DIGITAL DIAGNOSTIC MAMMOGRAM, DIGITAL BILATERAL BREAST TOMOSYNTHESIS, AND RIGHT BREAST SONOGRAM A full field digital mammogram was performed. Computer Aided Detection was performed with Studio Moderna 1.3 version 9.3. HISTORY: 59-year-old woman with a large palpable mass in the right breast with overlying skin discoloration. The mass has been present for over 2 years according to patient. MAMMOGRAM TECHNIQUE: Bilateral full Field digital diagnostic mammogram, digital bilateral breast tomosynthesis. A full field digital mammogram was performed. Computer Aided Detection was performed with Studio Moderna 1.3 version 9.3. COMPARISON: No priors available. [...] SHARIF M.D. on Jul 27 2015 3:25P [id number] Historical Provider MD [facility] MAMMO PROCEDURES Graciela l Result from Last 3 Months or Most Recently Relevant to Health Maintenance Insurance [id number] [facility] [address] [place] [id number] [facility] MEDICARE ADVANTAGE [facility] Address: [address] [address] [place] [address] [facility] MEDICAID [facility] IDPA [facility] MEDICARE ADVANTAGE [facility] Address: [address] [address] [place] [address] Care Teams Behavioral Analyst Relationship Specialty Start Date End Date Rufus Teixeira MD [address] [address] PCP - General Internal Medicine 03/22/18
--- OUTSIDE RECORDS SUMMARY | 2024-11-12 12:15 | XMS_ITS | Referral Summary ---
Author Organization [facility] Address [address] [place] [address] Care Team Providers Care Administrative Job Titles Name Role Phone Rufus Teixeira MD Primary Care Provide r Encounters Date Type Department Care Team Description 09/26/2024 1:40 PM CDT Office Visit [facility] Oncology [address] [facility] [address] 8 [place] [address] Papo Parnell MD Carcinoma of central portion of right breast in female, estrogen receptor positive (HCC) (Primary Dx); Encounter for follow-up surveillance of breast cancer; ER+ (estrogen receptor positive status) 09/26/2024 1:[address] [facility] - Lab Collection [address] [facility] [address] 5 [place] [address] Encounter for follow-up surveillance of breast cancer; ER+ (estrogen receptor positive status) from Last 3 Months Allergies No known active allergies Medications calcium carbonate-vitamin D3 1,500 mg (600mg elemental) -800 unit per tablet daily. Acti ve nwvtf-4-pyn-epa-dp a-fish oil 1,050-1,200 mg capsule daily. 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 Gender Identity Not on file Sexual Orientation [...] 09/26/2024 12:53 PM CDT Plan of Treatment Not on file Procedures [...] HEPATITIS C AB Routine 08/25/2015 7:00 AM SUPERVISOR WOOL SHEARING DIAGNOSTIC MAMMOGRAM BILATERAL W ADIN Routine 07/27/2015 1:39 PM SUPERVISOR WOOL SHEARING from Last 3 Months or Most Recently [...] BLOOD ORDERABLES Final Result Performing Organization Address City/[facility] [place] [address] * Cancer antigen 15-3 (09/26/2024 12:40 PM CDT) Pathologist [facility] CA 15-3 ag 9.8 <=25.0 units/mL Comment: Interpretive Data The Vane CA 15-3 assay procedure was used. Results from different manufacturers or methods may not be comparable. Serial testing should be performed using the same method. Blood 09/26/2024 12:4 0 PM CDT 09/26/2024 1:08 PM CDT Papo Parnell MD LAB BLOOD ORDERABLES Final Result Performing Organization Address [facility] Co de Phone Number [facility] [place] [address] * Vitamin D 25 hydroxy (09/26/2024 12:40 PM CDT) [facility] Vitamin D 25-OH 50 30 - 80 ng/mL Blood 09/26/2024 12:4 0 PM CDT 09/26/2024 12:44 PM CDT Papo Parnell MD LAB BLOOD ORDERABLES Final Result Performing Organization Address City/[facility] [place] [address] * (ABNORMAL) Comprehensive metabolic panel (09/26/2024 12:40 PM CDT) Sodium 143 135 - 145 mmol/L Potassium, [...] classification and Diagnosis of Diabetes Diabetes Care 202; 46: S19-S40. Current interpretive data was last revised 2022. Calcium 10.1 8.5 - 10.3 mg/dL [facility] Bilirubin, total 0.2 0.1 - 1.2 mg/dL [facility] Protein, pl 7.7 6.5 - 8.5 g/dL [facility] Albumin 4.4 3.5 - 5.0 g/dL [facility] Alk phos 44 40 - 130 Units/L [facility] ALT 19 7 - 45 Units/L [facility] AST 22 10 - 45 Units/L [facility] Blood 09/26/2024 12:4 0 PM CDT 09/26/2024 12:44 PM CDT us Papo Parnell MD LAB BLOOD ORDERABLES Final Result [facility] One [facility] [place] [address] * BONE MINERAL DENSITY (10/13/2016) Anatomical Region Laterality Modality Radiographic Kaci ging Narrative 10/13/2016 Ordered by an unspecified provider. Historical Provider IMG DXA PROCEDURES Final Result * Serum Hepatitis C ab (08/25/2015 7:00 AM SUPERVISOR WOOL SHEARING) HCV ab Negative NEG HISTORICAL RESULTS Serum 08/25/2015 7:0 0 AM SUPERVISOR WOOL SHEARING Narrative HISTORICAL RESULTS - 08/26/2015 4:40 AM SUPERVISOR WOOL SHEARING Interpretive Data If confirmation is required, call Laboratory Customer Service to request sample to be sent to [facility] for Hepatitis C Virus (HCV) RNA Detection and Quantitation by Real-Time Reverse National [employer] Leader-PCR (RT-PCR). Current interpretive data was last revised on 2011 Historical Provider LAB BLOOD ORDERABLES Graciela danay Result HISTORICAL RESULTS * Diagnostic Mammogram Bilateral W Adin (07/27/2015 1:39 PM SUPERVISOR WOOL SHEARING) Anatomical Region Laterality Modality Breast Bilateral Mammography 07/27/2015 1:39 PM SUPERVISOR WOOL SHEARING Narrative 07/27/2015 3:25 PM SUPERVISOR WOOL SHEARING ZAINAB SHARIF M.D. DM CHRISTINA, FINAL REPORT The radiology attending physician has personally reviewed this study, and has reviewed and/or edited this written report and agrees with it. ACC# Date Time Exam [id number] Jul 27, 2015 13:39:00 [facility] [id number] Diag Mammogram Bilateral Technologist(s): Aretha Massey; ; [id number] Jul 27, 2015 13:48:00 [facility] [address] Breast US unilateral, ltd R [id number] Jul 27, 2015 13:39:00 [facility] [address] Dig Breast Adin Angelo ACC# Date Time Exam [id number] Jul 27, 2015 13:39:00 [facility] [id number] Diag Mammogram Bilateral Technologist(s): Aretha Massey; ; [id number] Jul 27, 2015 13:48:00 [facility] [address] Breast US unilateral, ltd R [id number] Jul 27, 2015 13:39:00 [facility] [address] Dig Breast Adin Angelo EXAMINATION: BILATERAL FULL FIELD DIGITAL DIAGNOSTIC MAMMOGRAM, DIGITAL BILATERAL BREAST TOMOSYNTHESIS, AND RIGHT BREAST SONOGRAM A full field digital mammogram was performed. Computer Aided Detection was performed with [employer] 1.3 version 9.3. HISTORY: 59-year-old woman with a large palpable mass in the right breast with overlying skin discoloration. The mass has been present for over 2 years according to patient. MAMMOGRAM TECHNIQUE: Bilateral full Field digital diagnostic mammogram, digital bilateral breast tomosynthesis. A full field digital mammogram was performed. Computer Aided Detection was performed with [employer] 1.3 version 9.3. COMPARISON: No priors available. [...] SHARIF M.D. on Jul 27 2015 3:25P [id number] Procedure Note Provider, MD Sharla - 11/20/2016 ZAINAB SHARIF M.D. DM CHRISTINA, FINAL REPORT The radiology attending physician has personally reviewed this study, and has reviewed and/or edited this written report and agrees with it. ACC# Date Time Exam [id number] Jul 27, 2015 13:39:00 [facility] [address] Diag Mammogram Bilateral Technologist(s): Aretha Massey; ; [id number] Jul 27, 2015 13:48:00 [facility] [address] Breast US unilateral, ltd R [id number] Jul 27, 2015 13:39:00 [facility] [address] Dig Breast Adin Angelo ACC# Date Time Exam [id number] Jul 27, 2015 13:39:00 C 30381 Diag Mammogram Bilateral Technologist(s): Aretha Massey; ; [id number] Jul 27, 2015 13:48:00 C 20199 Breast US unilateral, ltd R [id number] Jul 27, 2015 13:39:00 C 96197 Dig Breast Adin Angelo EXAMINATION: BILATERAL FULL FIELD DIGITAL DIAGNOSTIC MAMMOGRAM, DIGITAL BILATERAL BREAST TOMOSYNTHESIS, AND RIGHT BREAST SONOGRAM A full field digital mammogram was performed. Computer Aided Detection was performed with [employer] 1.3 version 9.3. HISTORY: 59-year-old woman with a large palpable mass in the right breast with overlying skin discoloration. The mass has been present for over 2 years according to patient. MAMMOGRAM TECHNIQUE: Bilateral full Field digital diagnostic mammogram, digital bilateral breast tomosynthesis. A full field digital mammogram was performed. Computer Aided Detection was performed with [employer], [employer] 1.3 version 9.3. COMPARISON: No priors available. [...] SHARIF M.D. on Jul 27 2015 3:25P [id number] Historical Provider MD [facility] MAMMO PROCEDURES Graciela l Result from Last 3 Months or Most Recently Relevant to Health Maintenance Insurance MEDICARE ADVANTAGE [facility] MEDICAID [facility] IDPA [facility] MEDICARE ADVANTAGE Care Teams Administrative Job Titles Relationship Specialty Start Date End Date Rufus Teixeira MD [address] [address] PCP - General Internal Medicine 03/22/18
--- OUTSIDE RECORDS SUMMARY | 2024-11-12 12:15 | XMS_ITS | Encounter Summary ---
Author Organization 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
--- OUTSIDE RECORDS SUMMARY | 2024-11-12 12:15 | XMS_ITS | Data Portability ---
Author Organization [place] [facility], Main Office Address [address] [place] [address] Care Team Providers Care Agency Service Coordinator Name Role Phone CALLIE TEIXEIRA Primary Care Provider Assessment Encounter Date Assessment Date Assessment LastModified [...] D, 25-hydrox y, total, serum [email or web address] [place] [address] (Lab), [address] [place], [address], 09/11/2024 09:52:22 lipid panel, serum 2024 025 [email or web address], [address], [place], [address], 09/02/2024 16:33:39 CMP, serum or plasma 2024 025 NELSON [facility], [address], [place], [address], 09/23/2024 20:01:10 CBC w/ auto diff 2024 025 [email or web address], [address], [place], [address], 09/02/2024 16:33:40 TSH, serum or plasma 2024 025 [email or web address], [address], [place], [address], 09/02/2024 16:33:41 T4, free, serum 2024 025 [email or web address], [address], [place], [address], 09/02/2024 16:33:42 protein electroph oresis panel, serum [...] an appointme nt. Thank you. 2024 025 doris Raygoza, [address], [address], [place], [address], 09/30/2024 16:51:47 cardiolog ist referral - Please call patient to schedule. 2023 024 [email or web address] Raygoza, [address], [address], [place], [address], 08/27/2024 16:35:05 endocrino logy referral - Please call patient to schedule. 2023 024 kathi Malin MD, [address], [place], [address], 08/27/2024 16:35:05 cardiolog ist referral 2023 024 kathi Raygoza, [address], [address], [place], [address], 07/25/2024 08:34:44 endocrino logy referral 2023 024 kathi Malin MD, [address], [place], [address], 07/25/2024 08:34:45 cardiolog ist referral 2023 024 kathi Raygoza, [address], [address], [place], [address], 04/22/2024 11:32:24 endocrino logy referral 2023 024 kathi Malin MD, [address], [place], [address], 04/22/2024 11:32:26 cardiolog ist referral 2022 023 kathi Raygoza, [address], [address], [place], [address], 01/22/2024 09:04:56 endocrino logy referral 2022 023 kathi Malin MD, [address], [place], [address], 01/22/2024 09:04:58 Procedures None recorded. Surgeries None recorded. Imaging MAMMO, screening , digital, bilateral - Please call patient to schedule. 2024 025 [facility], [address] [facility] , [place], [address], 09/02/2024 17:05:30 US, liver - Please call patient to schedule. [address] [facility], [address], [place] [address], [place], [address], 10/31/2024 11:51:37 US, liver [address] ([facility]), [address] [place], [address], 05/27/2024 17:23:37 [place], liver [address] ([facility]), [address] [place], [address], 05/07/2024 17:31:15 US, liver [address] ([facility]), [address] [place], [address], 05/07/2024 17:31:18 MAMMO, screening , digital, bilateral 2022 023 [facility] ([facility]), [address] [place], [address], 10/16/2023 11:20:37 Medication Orders potassium chloride ER 20 mEq tablet,ex tended release 2023 024 [facility], [address] [place], [address], 05/27/2024 14:21:33 atorvasta tin 20 mg tablet 2023 024 [facility], [address] [place], [address], 10/25/2023 14:40:52 Patient TargetsNo targets recorded. Patient Instructions Encounter Date Encounter Id Patient Instructions Last Modified By Organization Details Last Modified Time 10/25/2023 [id number] dementia rating scale-2* siria 2 Not available 10/25/2023 14:40:44 depression screening* siria 2 Not available 10/25/2023 14:40:44 alcohol misuse* [email or web address] 2 Not available 10/25/2023 14:40:44 multi-dimensiona l health assessment questionnaire* siria 2 Not available 10/25/2023 14:40:44 Personalized a lt Plan and Screening Recommendations Advance Directives - [...] I have no recommendations Depression Screening: Negative [email or web address] Not available 10/25/2023 14:38:53 01/22/2024 [id number] dementia rating scale-2* Not available 01/30/2024 08:31:27 depression screening* [email or web address] Not available 01/30/2024 08:31:35 alcohol misuse* [email or web address] Not available 01/30/2024 08:31:39 multi-dimensiona l health assessment questionnaire* [email or web address] Not available 01/30/2024 08:31:31 Reason for Referral Automatic Dry Starch Operator Referral for Es sential hypertension Referring Physician: Callie Teixeira Internal Medicine, Encounter Date: 06/26/2023 Endocrinology Referral for H ypothyroidism Referring Physician: Callie Teixeira Internal Medicine, Encounter Date: 06/26/2023 Automatic Dry Starch Operator Referral for Es sential hypertension Referring Physician: Callie Teixeira Internal Medicine, Encounter Date: 10/25/2023 Endocrinology Referral for H ypothyroidism Referring Physician: Callie Teixeira Internal Medicine, Encounter Date: 10/25/2023 Automatic Dry Starch Operator Referral for Es sential hypertension Referring Physician: Conchita Oconnor Medicine, Encounter Date: 01/22/2024 Endocrinology Referral for H ypothyroidism Referring Physician: Callie Teixeira Internal Medicine, Encounter Date: 01/22/2024 Automatic Dry Starch Operator Referral for Es sential hypertension Please call patient to schedule. Referring Physician: Conchita Oconnor, Encounter Date: 05/27/2024 Endocrinology Referral for H ypothyroidism Please call patient to schedule. Referring Physician: Conchita Oconnor, Encounter Date: 05/27/2024 Automatic Dry Starch Operator Referral for Es sential hypertension Please call patient to schedule an appointment. Thank you. Referring Physician: Conchita Oconnor Medicine, Encounter Date: 09/02/2024 Results Created Date Observation Date Name Description Value Unit Range Abnormal Flag Note LastModifiedBy Organization Detail LastModifiedTime 06/22/20 23 06/22/2023 LIPID PANEL cholesterol 176 mg/dL 140-19 9 NIH YUNIEL NSUS RECOM MENDA TION FOR BONIFACIO STERO L: ADULT CHILD LOW RISK: <200 <170 BORDE RLINE : <200- 239 ----- HIGH RISK: >240 >200 Not Available [facility] (Lab) [address] [place], [address], 06/22/2023 13:58:42 06/22/2006/22/2023 LIPID PANEL triglyceride s 111 mg/dL 0-150 NIH YUNIEL NSUS REPOR T RECOM MENDA TION FOR TRIGL YCERI AMEENA: ADULT CHILD LOW RISK: <150 ----- BODER LINE: 150-1 99 ----- HIGH RISK: >200 ----- Not Available [facility] (Lab) [address] [place], [address], 06/22/2023 13:58:42 06/22/20 23 06/22/2023 LIPID PANEL HDL cholesterol 57 mg/dL 40- Not Available [facility] (Lab) [address] [place], [address], 06/22/2023 13:58:42 06/22/20 23 06/22/2023 LIPID PANEL [...] WILL NOT BE REPOR ABDOULAYE. Not Available [facility] (Lab) [address] [place], [address], 06/22/2023 13:58:42 06/22/20 23 06/22/2023 COMPR EHENS AHSAN METAB OLIC PANEL sodium 141 mmol/ L 137-14 5 Not Available [facility] (Lab) [address] [place], [address], 06/22/2023 13:58:56 06/22/20 23 06/22/2023 COMPR EHENS AHSAN METAB OLIC PANEL potassium 4.4 mmol/ L 3.5-5. 1 Not Available [facility] (Lab) [address] [place], [address], 06/22/2023 13:58:56 06/22/20 23 06/22/2023 COMPR EHENS AHSAN METAB OLIC PANEL chloride 106 mmol/ L 98-107 Not Available [facility] (Lab) [address] [place], [address], 06/22/2023 13:58:56 06/22/2006/22/2023 COMPR EHENS AHSAN METAB OLIC PANEL carbon dioxide 28 mmol/ L 22-30 Not Available [facility] (Lab) [address] [place], [address], 06/22/2023 13:58:56 06/22/20 23 06/22/2023 COMPR EHENS AHSAN METAB OLIC PANEL anion gap 11.4 mmol/ L 14-22 low Not Available [facility] (Lab) [address] [place], [address], 06/22/2023 13:58:56 06/22/20 23 06/22/2023 COMPR EHENS AHSAN METAB OLIC PANEL glucose 97 mg/dL 70-99 Not Available [facility] (Lab) [address] [place], [address], 06/22/2023 13:58:56 06/22/20 23 06/22/2023 COMPR EHENS AHSAN METAB OLIC PANEL BUN 15 mg/dL 8-19 Not Available [facility] (Lab) [address] [place], [address], 06/22/2023 13:58:56 06/22/20 23 06/22/2023 COMPR EHENS AHSAN METAB OLIC PANEL creatinine 0.60 mg/dL 0.66-1 .25 low Not Available [facility] (Lab) [address] [place], [address], 06/22/2023 13:58:56 06/22/20 23 06/22/2023 COMPR EHENS AHSAN METAB OLIC PANEL GFR >60 Refer ence Range : Freeland ge GFR Healt hy Adult : >60 mL/mi n/1.7 3 m2 Chron ic Kidne y Disea se: 15-60 mL/mi n/1.7 3 m2 Kidne y Failu re: <15/m L/min /1.73 m2 www.n iddk. [facility].g ov The MDRD study equat ion has [...] calcu lator is avail able on the [facility] websi te: https :[email or web address] preciado.tanvir negro.o baldemar/pr patrickess ional s/kdo qi/gf r_cal culat or Not Available [facility] (Lab) [address] [place], [address], 06/22/2023 13:58:56 06/22/2006/22/2023 COMPR EHENS AHSAN METAB OLIC PANEL alkaline phosphatase 44 U/L 38-126 Not Available [facility] (Lab) [address] [place], [address], 06/22/2023 13:58:56 06/22/20 23 06/22/2023 COMPR EHENS AHSAN METAB OLIC PANEL alanine aminotransfe rase 17 U/L 0-35 Not Available [facility] (Lab) [address] [place], [address], 06/22/2023 13:58:56 06/22/20 23 06/22/2023 COMPR EHENS AHSAN METAB OLIC PANEL aspartate aminotransfe rase 60 U/L 15-37 high Not Available [facility] (Lab) [address] [place], [address], 06/22/2023 13:58:56 06/22/2006/22/2023 COMPR EHENS AHSAN METAB OLIC PANEL bilirubin, total 0.70 mg/dL 0.20-1 .30 Not Available [facility] (Lab) [address] [place], [address], 06/22/2023 13:58:56 06/22/2006/22/2023 COMPR EHENS AHSAN METAB OLIC PANEL calcium 9.8 mg/dL 8.4-10 .2 Not Available [facility] (Lab) [address] [place], [address], 06/22/2023 13:58:56 06/22/2006/22/2023 COMPR EHENS AHSAN METAB OLIC PANEL total protein 8.1 g/dL 6.3-8. 2 Not Available [facility] (Lab) [address] [place], [address], 06/22/2023 13:58:56 06/22/2006/22/2023 COMPR EHENS AHSAN METAB OLIC PANEL albumin 4.4 g/dL 3.0-4. 4 Not Available [facility] (Lab) [address] [place], [address], 06/22/2023 13:58:56 06/22/20 23 06/22/2023 COMPR EHENS AHSAN METAB OLIC PANEL globulin 3.7 g/dL 2.6-4. 2 Not Available [facility] (Lab) [address] [place], [address], 06/22/2023 13:58:56 06/22/20 23 06/22/2023 COMPR EHENS AHSAN METAB OLIC PANEL A/G ratio 1.2 ratio 1.0-2. 0 Not Available [facility] (Lab) [address] [place], [address], 06/22/2023 13:58:56 06/22/20 23 06/22/2023 T4 FREE free T4 1.54 NG/dL 0.78-2 .19 Not Available [facility] (Lab) [address] [place], [address], 06/22/2023 14:08:57 06/22/2006/22/2023 TEST NOT PERFO RMED test not performed SEE COMMEN T CBC NOT PERFO RMED DUE TO CLOT IN SAMPL E. Not Available [facility] (Lab) [address] [place], [address], 06/22/2023 14:15:27 06/22/20 23 06/22/2023 TSH thyroid-stim ulating hormone 2.260 uIU/m L 0.465- 4.680 Not Available [facility] (Lab) [address] [place], [address], 06/22/2023 14:20:18 10/16/19 24 10/16/2023 LIPID PANEL cholesterol 216 mg/dL 140-19 9 high NIH YUNIEL NSUS RECOM MENDA TION FOR BONIFACIO STERO L: ADULT CHILD LOW RISK: <200 <170 BORDE RLINE : <200- 239 ----- HIGH RISK: >240 >200 Not Available [facility] (Lab) [address] [place], [address], 10/16/2023 19:37:34 10/16/19 24 10/16/2023 LIPID PANEL triglyceride s 195 mg/dL 0-150 high NIH YUNIEL NSUS REPOR T RECOM MENDA TION FOR TRIGL YCERI AMEENA: ADULT CHILD LOW RISK: <150 ----- BODER LINE: 150-1 99 ----- HIGH RISK: >200 ----- Not Available [facility] (Lab) [address] [place], [address], 10/16/2023 19:37:34 10/16/19 24 10/16/2023 LIPID PANEL HDL cholesterol 56 mg/dL 40- Not Available [facility] (Lab) [address] [place], [address], 10/16/2023 19:37:34 10/16/19 24 10/16/2023 LIPID PANEL [...] WILL NOT BE REPOR ABDOULAYE. Not Available [facility] (Lab) [address] [place], [address], 10/16/2023 19:37:34 10/16/19 24 10/16/2023 COMPR EHENS AHSAN METAB OLIC PANEL sodium 139 mmol/ L 137-14 5 Not Available [facility] (Lab) [address] [place], [address], 10/16/2023 19:37:44 10/16/19 24 10/16/2023 COMPR EHENS AHSAN METAB OLIC PANEL potassium 3.6 mmol/ L 3.5-5. 1 Not Available [facility] (Lab) [address] [place], [address], 10/16/2023 19:37:44 10/16/19 24 10/16/2023 COMPR EHENS AHSAN METAB OLIC PANEL chloride 106 mmol/ L 98-107 Not Available [facility] (Lab) [address] [place], [address], 10/16/2023 19:37:44 10/16/19 24 10/16/2023 COMPR EHENS AHSAN METAB OLIC PANEL carbon dioxide 27 mmol/ L 22-30 Not Available [facility] (Lab) [address] [place], [address], 10/16/2023 19:37:44 10/16/19 24 10/16/2023 COMPR EHENS AHSAN METAB OLIC PANEL anion gap 9.6 mmol/ L 14-22 low Not Available [facility] (Lab) [address] [place], [address], 10/16/2023 19:37:44 10/16/19 24 10/16/2023 COMPR EHENS AHSAN METAB OLIC PANEL glucose 110 mg/dL 70-99 high Not Available [facility] (Lab) [address] [place], [address], 10/16/2023 19:37:44 10/16/19 24 10/16/2023 COMPR EHENS AHSAN METAB OLIC PANEL BUN 15 mg/dL 8-19 Not Available [facility] (Lab) [address] [place], [address], 10/16/2023 19:37:44 10/16/19 24 10/16/2023 COMPR EHENS AHSAN METAB OLIC PANEL creatinine 0.56 mg/dL 0.66-1 .25 low Not Available [facility] (Lab) [address] [place], [address], 10/16/2023 19:37:44 10/16/19 24 10/16/2023 COMPR EHENS AHSAN METAB OLIC PANEL GFR >60 Refer ence Range : Freeland ge GFR Healt hy Adult : >60 [...] calcu lator is avail able on the [facility] websi te: https :[email or web address] w.tanvir negro.o rg/pr ofess ional s/kdo qi/gf r_cal culat or Not Available [facility] (Lab) [address] [place], [address], 10/16/2023 19:37:44 10/16/19 24 10/16/2023 COMPR EHENS AHSAN METAB OLIC PANEL alkaline phosphatase 44 U/L 38-126 Not Available [facility] (Lab) [address] [place], [address], 10/16/2023 19:37:44 10/16/19 24 10/16/2023 COMPR EHENS AHSAN METAB OLIC PANEL alanine aminotransfe rase 24 U/L 0-35 Not Available [facility] (Lab) [address] [place], [address], 10/16/2023 19:37:44 10/16/19 24 10/16/2023 COMPR EHENS AHSAN METAB OLIC PANEL aspartate aminotransfe rase 43 U/L 15-37 high Not Available [facility] (Lab) [address] [place], [address], 10/16/2023 19:37:44 10/16/19 24 10/16/2023 COMPR EHENS AHSAN METAB OLIC PANEL bilirubin, total 0.50 mg/dL 0.20-1 .30 Not Available [facility] (Lab) [address] [place], [address], 10/16/2023 19:37:44 10/16/19 24 10/16/2023 COMPR EHENS AHSAN METAB OLIC PANEL calcium 9.7 mg/dL 8.4-10 .2 Not Available [facility] (Lab) [address] [place], [address], 10/16/2023 19:37:44 10/16/19 24 10/16/2023 COMPR EHENS AHSAN METAB OLIC PANEL total protein 7.9 g/dL 6.3-8. 2 Not Available [facility] (Lab) [address] [place], [address], 10/16/2023 19:37:44 10/16/19 24 10/16/2023 COMPR EHENS AHSAN METAB OLIC PANEL albumin 4.6 g/dL 3.0-4. 4 high Not Available [facility] (Lab) [address] [place], [address], 10/16/2023 19:37:44 10/16/19 24 10/16/2023 COMPR EHENS AHSAN METAB OLIC PANEL globulin 3.3 g/dL 2.6-4. 2 Not Available [facility] (Lab) [address] [place], [address], 10/16/2023 19:37:44 10/16/19 24 10/16/2023 COMPR EHENS AHSAN METAB OLIC PANEL A/G ratio 1.4 ratio 1.0-2. 0 Not Available [facility] (Lab) [address] [place], [address], 10/16/2023 19:37:44 10/16/19 24 10/16/2023 T4 FREE free T4 1.15 NG/dL 0.78-2 .19 Not Available [facility] (Lab) [address] [place], [address], 10/16/2023 19:45:40 10/16/19 24 10/16/2023 TSH thyroid-stim ulating hormone 5.110 uIU/m L 0.465- 4.680 high Not Available [facility] (Lab) [address] [place], [address], 10/16/2023 19:48:27 10/17/19 24 10/17/2023 CBC/C OMPLE TE BLD COUNT W/DIF F white blood cells 7.9 x10'3 /uL 4.2-10 .8 Not Available [facility] (Lab) [address] [place], [address], 10/17/2023 15:47:28 10/17/19 24 10/17/2023 CBC/C OMPLE TE BLD COUNT W/DIF F red blood cells 4.81 x10'6 /uL 3.80-5 .20 Not Available [facility] (Lab) [address] [place], [address], 10/17/2023 15:47:28 10/17/19 24 10/17/2023 CBC/C OMPLE TE BLD COUNT W/DIF F hemoglobin 15.2 g/dL 12.0-1 5.6 Not Available [facility] (Lab) [address] [place], [address], 10/17/2023 15:47:28 10/17/19 24 10/17/2023 CBC/C OMPLE TE BLD COUNT W/DIF F hematocrit 44.9 % 35.7-4 5.7 Not Available [facility] (Lab) [address] [place], [address], 10/17/2023 15:47:28 04/02/20 24 10/17/2023 CBC/C OMPLE TE BLD COUNT W/DIF F mean red cell volume 93.3 fL 82.0-9 9.0 Not Available [facility] (Lab) [address] [place], [address], 10/17/2023 15:47:28 10/17/19 24 10/17/2023 CBC/C OMPLE TE BLD COUNT W/DIF F mean red cell hemoglobin 31.6 pg 27.0-3 3.0 Not Available [facility] (Lab) [address] [place], [address], 10/17/2023 15:47:28 10/17/19 24 10/17/2023 CBC/C OMPLE TE BLD COUNT W/DIF F mean RBC HGB concentratio n 33.9 g/dL 31.0-3 6.0 Not Available [facility] (Lab) [address] [place], [address], 10/17/2023 15:47:28 10/17/19 24 10/17/2023 CBC/C OMPLE TE BLD COUNT W/DIF F red cell distribution width 12.0 % 11.8-1 5.5 Not Available [facility] (Lab) [address] [place], [address], 10/17/2023 15:47:28 10/17/19 24 10/17/2023 CBC/C OMPLE TE BLD COUNT W/DIF F platelets 196 x10'3 /uL 150-40 0 Not Available [facility] (Lab) [address] [place], [address], 10/17/2023 15:47:28 10/17/19 24 10/17/2023 CBC/C OMPLE TE BLD COUNT W/DIF F mean platelet volume 11.7 fL 9.0-12 .4 Not Available [facility] (Lab) [address] [place], [address], 10/17/2023 15:47:28 10/17/19 24 10/17/2023 CBC/C OMPLE TE BLD COUNT W/DIF F neutrophils 52.2 % 39.0-7 2.0 Not Available [facility] (Lab) [address] [place], [address], 10/17/2023 15:47:28 10/17/19 24 10/17/2023 CBC/C OMPLE TE BLD COUNT W/DIF F lymphocytes 40.4 % 16.0-4 7.0 Not Available [facility] (Lab) [address] [place], [address], 10/17/2023 15:47:28 10/17/19 24 10/17/2023 CBC/C OMPLE TE BLD COUNT W/DIF F monocytes 4.5 % 5.0-12 .0 low Not Available [facility] (Lab) [address] [place], [address], 10/17/2023 15:47:28 10/17/19 24 10/17/2023 CBC/C OMPLE TE BLD COUNT W/DIF F eosinophils 1.5 % 1.0-7. 0 Not Available [facility] (Lab) [address] [place], [address], 10/17/2023 15:47:28 10/17/19 24 10/17/2023 CBC/C OMPLE TE BLD COUNT W/DIF F basophils 1.0 % 0.0-2. 0 Not Available [facility] (Lab) [address] [place], [address], 10/17/2023 15:47:28 10/17/19 24 10/17/2023 CBC/C OMPLE TE BLD COUNT W/DIF F immature granulocytes 0.4 % 0.00-0 .50 Not Available [facility] (Lab) [address] [place], [address], 10/17/2023 15:47:28 10/17/19 24 10/17/2023 CBC/C OMPLE TE BLD COUNT W/DIF F neutrophils, absolute count 4.10 x10'3 /uL 1.5-8. 0 Not Available [facility] (Lab) [address] [place], [address], 10/17/2023 15:47:28 10/17/19 24 10/17/2023 CBC/C OMPLE TE BLD COUNT W/DIF F lymphocytes, absolute count 3.17 x10'3 /uL 1.07-3 .43 Not Available [facility] (Lab) [address] [place], [address], 10/17/2023 15:47:28 10/17/19 24 10/17/2023 CBC/C OMPLE TE BLD COUNT W/DIF F monocytes, absolute count 0.35 x10'3 /uL 0.29-0 .99 Not Available [facility] (Lab) [address] [place], [address], 10/17/2023 15:47:28 10/17/19 24 10/17/2023 CBC/C OMPLE TE BLD COUNT W/DIF F eosinophils, absolute count 0.12 x10'3 /uL 0.02-0 .53 Not Available [facility] (Lab) [address] [place], [address], 10/17/2023 15:47:28 10/17/19 24 10/17/2023 CBC/C OMPLE TE BLD COUNT W/DIF F basophils, absolute count 0.08 x10'3 /uL 0.01-0 .08 Not Available [facility] (Lab) [address] [place], [address], 10/17/2023 15:47:28 10/17/19 24 10/17/2023 CBC/C OMPLE TE BLD COUNT W/DIF F immature granulocytes ,absolute 0.03 x10'3 /uL 0.00-0 .05 Not Available [facility] (Lab) [address] [place], [address], 10/17/2023 15:47:28 10/17/19 24 10/17/2023 CBC/C OMPLE TE BLD COUNT W/DIF F nucleated red blood cells 0.0 % -0 Not Available [facility] (Lab) [address] [place], [address], 10/17/2023 15:47:28 10/17/19 24 10/17/2023 CBC/C OMPLE TE BLD COUNT W/DIF F NRBC# 0.00 x10'3 /uL Not Available [facility] (Lab) [address] [place], [address], 10/17/2023 15:47:28 01/16/20 24 01/16/2024 CBC/C OMPLE TE BLD COUNT W/DIF F white blood cells 7.3 x10'3 /uL 4.2-10 .8 Not Available [facility] (Lab) [address] [place], [address], 01/16/2024 13:14:26 01/16/20 24 01/16/2024 CBC/C OMPLE TE BLD COUNT W/DIF F red blood cells 4.64 x10'6 /uL 3.80-5 .20 Not Available [facility] (Lab) [address] [place], [address], 01/16/2024 13:14:26 01/16/20 24 01/16/2024 CBC/C OMPLE TE BLD COUNT W/DIF F hemoglobin 14.8 g/dL 12.0-1 5.6 Not Available [facility] (Lab) [address] [place], [address], 01/16/2024 13:14:26 01/16/20 24 01/16/2024 CBC/C OMPLE TE BLD COUNT W/DIF F hematocrit 43.8 % 35.7-4 5.7 Not Available [facility] (Lab) [address] [place], [address], 01/16/2024 13:14:26 01/16/20 24 01/16/2024 CBC/C OMPLE TE BLD COUNT W/DIF F mean red cell volume 94.4 fL 82.0-9 9.0 Not Available [facility] (Lab) [address] [place], [address], 01/16/2024 13:14:26 01/16/20 24 01/16/2024 CBC/C OMPLE TE BLD COUNT W/DIF F mean red cell hemoglobin 31.9 pg 27.0-3 3.0 Not Available [facility] (Lab) [address] [place], [address], 01/16/2024 13:14:26 01/16/20 24 01/16/2024 CBC/C OMPLE TE BLD COUNT W/DIF F mean RBC HGB concentratio n 33.8 g/dL 31.0-3 6.0 Not Available [facility] (Lab) [address] [place], [address], 01/16/2024 13:14:26 01/16/20 24 01/16/2024 CBC/C OMPLE TE BLD COUNT W/DIF F red cell distribution width 12.0 % 11.8-1 5.5 Not Available [facility] (Lab) [address] [place], [address], 01/16/2024 13:14:26 01/16/20 24 01/16/2024 CBC/C OMPLE TE BLD COUNT W/DIF F platelets 166 x10'3 /uL 150-40 0 Not Available [facility] (Lab) [address] [place], [address], 01/16/2024 13:14:26 01/16/20 24 01/16/2024 CBC/C OMPLE TE BLD COUNT W/DIF F mean platelet volume 11.3 fL 9.0-12 .4 Not Available [facility] (Lab) [address] [place], [address], 01/16/2024 13:14:26 01/16/20 24 01/16/2024 CBC/C OMPLE TE BLD COUNT W/DIF F neutrophils 47.3 % 39.0-7 2.0 Not Available [facility] (Lab) [address] [place], [address], 01/16/2024 13:14:01/16/2001/16/2024 CBC/C OMPLE TE BLD COUNT W/DIF F lymphocytes 45.9 % 16.0-4 7.0 Not Available [facility] (Lab) [address] [place], [address], 01/16/2024 13:14:01/16/20 24 01/16/2024 CBC/C OMPLE TE BLD COUNT W/DIF F monocytes 4.1 % 5.0-12 .0 low Not Available [facility] (Lab) [address] [place], [address], 01/16/2024 13:14:01/16/20 24 01/16/2024 CBC/C OMPLE TE BLD COUNT W/DIF F eosinophils 1.5 % 1.0-7. 0 Not Available [facility] (Lab) [address] [place], [address], 01/16/2024 13:14:01/16/2001/16/2024 CBC/C OMPLE TE BLD COUNT W/DIF F basophils 0.8 % 0.0-2. 0 Not Available [facility] (Lab) [address] [place], [address], 01/16/2024 13:14:01/16/20 24 01/16/2024 CBC/C OMPLE TE BLD COUNT W/DIF F immature granulocytes 0.4 % 0.00-0 .50 Not Available [facility] (Lab) [address] [place], [address], 01/16/2024 13:14:26 01/16/20 24 01/16/2024 CBC/C OMPLE TE BLD COUNT W/DIF F neutrophils, absolute count 3.47 x10'3 /uL 1.5-8. 0 Not Available [facility] (Lab) [address] [place], [address], 01/16/2024 13:14:26 01/16/20 24 01/16/2024 CBC/C OMPLE TE BLD COUNT W/DIF F lymphocytes, absolute count 3.37 x10'3 /uL 1.07-3 .43 Not Available [facility] (Lab) [address] [place], [address], 01/16/2024 13:14:26 01/16/20 24 01/16/2024 CBC/C OMPLE TE BLD COUNT W/DIF F monocytes, absolute count 0.30 x10'3 /uL 0.29-0 .99 Not Available [facility] (Lab) [address] [place], [address], 01/16/2024 13:14:26 01/16/20 24 01/16/2024 CBC/C OMPLE TE BLD COUNT W/DIF F eosinophils, absolute count 0.11 x10'3 /uL 0.02-0 .53 Not Available [facility] (Lab) [address] [place], [address], 01/16/2024 13:14:26 01/16/20 24 01/16/2024 CBC/C OMPLE TE BLD COUNT W/DIF F basophils, absolute count 0.06 x10'3 /uL 0.01-0 .08 Not Available [facility] (Lab) [address] [place], [address], 01/16/2024 13:14:26 01/16/20 24 01/16/2024 CBC/C OMPLE TE BLD COUNT W/DIF F immature granulocytes ,absolute 0.03 x10'3 /uL 0.00-0 .05 Not Available [facility] (Lab) [address] [place], [address], 01/16/2024 13:14:26 01/16/20 24 01/16/2024 CBC/C OMPLE TE BLD COUNT W/DIF F nucleated red blood cells 0.0 % -0 Not Available [facility] (Lab) [address] [place], [address], 01/16/2024 13:14:26 01/16/20 24 01/16/2024 CBC/C OMPLE TE BLD COUNT W/DIF F NRBC# 0.00 x10'3 /uL Not Available [facility] (Lab) [address] [place], [address], 01/16/2024 13:14:26 01/16/20 24 01/16/2024 LIPID PANEL cholesterol 134 mg/dL 140-19 9 low NIH YUNIEL NSUS RECOM MENDA TION FOR BONIFACIO STERO L: ADULT CHILD LOW RISK: <200 <170 BORDE RLINE : <200- 239 ----- HIGH RISK: >240 >200 Not Available [facility] (Lab) [address] [place], [address], 01/16/2024 17:49:37 01/16/2001/16/2024 LIPID PANEL triglyceride s 124 mg/dL 0-150 NIH YUNIEL NSUS REPOR T RECOM MENDA TION FOR TRIGL YCERI AMEENA: ADULT CHILD LOW RISK: <150 ----- BODER LINE: 150-1 99 ----- HIGH RISK: >200 ----- Not Available [facility] (Lab) [address] [place], [address], 01/16/2024 17:49:37 01/16/20 24 01/16/2024 LIPID PANEL HDL cholesterol 51 mg/dL 40- Not Available [facility] (Lab) [address] [place], [address], 01/16/2024 17:49:37 01/16/20 24 01/16/2024 LIPID PANEL [...] WILL NOT BE REPOR ABDOULAYE. Not Available [facility] (Lab) [address] [place], [address], 01/16/2024 17:49:37 01/16/20 24 01/16/2024 COMPR EHENS AHSAN METAB OLIC PANEL sodium 140 mmol/ L 137-14 5 Not Available [facility] (Lab) [address] [place], [address], 01/16/2024 17:49:49 01/16/20 24 01/16/2024 COMPR EHENS AHSAN METAB OLIC PANEL potassium 3.9 mmol/ L 3.5-5. 1 Not Available [facility] (Lab) [address] [place], [address], 01/16/2024 17:49:49 01/16/20 24 01/16/2024 COMPR EHENS AHSAN METAB OLIC PANEL chloride 107 mmol/ L 98-107 Not Available [facility] (Lab) [address] [place], [address], 01/16/2024 17:49:49 01/16/20 24 01/16/2024 COMPR EHENS AHSAN METAB OLIC PANEL carbon dioxide 28 mmol/ L 22-30 Not Available [facility] (Lab) [address] [place], [address], 01/16/2024 17:49:49 01/16/20 24 01/16/2024 COMPR EHENS AHSAN METAB OLIC PANEL anion gap 8.9 mmol/ L 14-22 low Not Available [facility] (Lab) [address] [place], [address], 01/16/2024 17:49:49 01/16/20 24 01/16/2024 COMPR EHENS AHSAN METAB OLIC PANEL glucose 97 mg/dL 70-99 Not Available [facility] (Lab) [address] [place], [address], 01/16/2024 17:49:49 01/16/20 24 01/16/2024 COMPR EHENS AHSAN METAB OLIC PANEL BUN 12 mg/dL 8-19 Not Available [facility] (Lab) [address] [place], [address], 01/16/2024 17:49:49 01/16/20 24 01/16/2024 COMPR EHENS AHSAN METAB OLIC PANEL creatinine 0.51 mg/dL 0.66-1 .25 low Not Available [facility] (Lab) [address] [place], [address], 01/16/2024 17:49:49 01/16/20 24 01/16/2024 COMPR EHENS AHSAN METAB OLIC PANEL GFR >60 Refer ence Range : Freeland ge GFR Healt hy Adult : >60 [...] calcu lator is avail able on the [facility] websi te: https :[email or web address] [email or web address] [email or web address] [email or web address]/pr ofess ional s/kdo qi/gf r_cal culat or Not Available [facility] (Lab) [address] [place], [address], 01/16/2024 17:49:49 01/16/20 24 01/16/2024 COMPR EHENS AHSAN METAB OLIC PANEL alkaline phosphatase 53 U/L 38-126 Not Available [facility] (Lab) [address] [place], [address], 01/16/2024 17:49:49 01/16/20 24 01/16/2024 COMPR EHENS AHSAN METAB OLIC PANEL alanine aminotransfe rase 22 U/L 0-35 Not Available [facility] (Lab) [address] [place], [address], 01/16/2024 17:49:49 01/16/20 24 01/16/2024 COMPR EHENS AHSAN METAB OLIC PANEL aspartate aminotransfe rase 27 U/L 15-37 Not Available [facility] (Lab) [address] [place], [address], 01/16/2024 17:49:49 01/16/20 24 01/16/2024 COMPR EHENS AHSAN METAB OLIC PANEL bilirubin, total 0.60 mg/dL 0.20-1 .30 Not Available [facility] (Lab) [address] [place], [address], 01/16/2024 17:49:49 01/16/20 24 01/16/2024 COMPR EHENS AHSAN METAB OLIC PANEL calcium 10.0 mg/dL 8.4-10 .2 Not Available [facility]) [address] [facility] [place], [address], 01/16/2024 17:49:49 01/16/20 24 01/16/2024 COMPR EHENS AHSAN METAB OLIC PANEL total protein 7.6 g/dL 6.3-8. 2 Not Available [facility] (Lab) [address] [place], [address], 01/16/2024 17:49:49 01/16/20 24 01/16/2024 COMPR EHENS AHSAN METAB OLIC PANEL albumin 4.6 g/dL 3.0-4. 4 high Not Available [facility] (Lab) [address] [place], [address], 01/16/2024 17:49:49 01/16/20 24 01/16/2024 COMPR EHENS AHSAN METAB OLIC PANEL globulin 3.0 g/dL 2.6-4. 2 Not Available [facility] (Lab) [address] [place], [address], 01/16/2024 17:49:49 01/16/20 24 01/16/2024 COMPR EHENS AHSAN METAB OLIC PANEL A/G ratio 1.5 ratio 1.0-2. 0 Not Available [facility] (Lab) [address] [place], [address], 01/16/2024 17:49:49 01/16/20 24 01/16/2024 T4 FREE free T4 1.35 NG/dL 0.78-2 .19 Not Available [facility] (Lab) [address] [place], [address], 01/16/2024 18:14:13 01/16/20 24 01/16/2024 TSH thyroid-stim ulating hormone 1.880 uIU/m L 0.465- 4.680 Not Available [facility] (Lab) [address] [facility] [place], [address], 01/16/2024 18:48:14 08/27/19 25 08/30/2024 LIPID PANEL , STAND DAMIAN cholesterol, total 150 mg/dL <200 normal Not Available [address] [address] [place], [address], 08/30/2024 14:10:13 08/27/19 25 08/30/2024 LIPID PANEL , STAND DAMIAN HDL cholesterol 60 mg/dL > or = 50 normal Not Available [facility] [address], [address], 08/30/2024 14:10:13 08/27/19 25 08/30/2024 LIPID PANEL , STAND DAMIAN triglyceride s 116 mg/dL <150 normal Not Available [facility] [address], [address], 08/30/2024 14:10:13 08/27/19 25 08/30/2024 LIPID PANEL , STAND DAMIAN LDL-choleste rol 70 mg/dL _(toby c) normal Refer ence range : <100 Thien able range <100 mg/dL for prima ry preve ntion ; <70 mg/dL for patie nts with CHD or diabe tic patie nts with > or = 2 CHD risk facto rs. LDL-C is now calcu lated using the Netta n-Hop apollo patel n, which is a valid ated novel alayna zavala than the Fried kenyon equat ion in the estim ation of LDL-C . Netta cabrera SS et al. FRANCISCO. 2013; 310(1 9): 2061- 2068 (http ://ed ucati on.Qu estDi Semmxos tics. com/f aq/FA Q164) Not Available [address] [address] [place], [address], 08/30/2024 14:10:13 08/27/19 25 08/30/2024 LIPID PANEL , STAND DAMIAN chol/HDLC ratio 2.5 (calc ) <5.0 normal Not Available [address] [address] [place], [address], 08/30/2024 14:10:13 08/27/1908/30/2024 LIPID PANEL , STAND DAMIAN non HDL cholesterol 90 mg/dL _(toby c) <130 normal For patie nts with diabe flor plus 1 major ASCVD risk facto r, treat ing to a non-H DL-C goal of <100 mg/dL (LDL- C of <70 mg/dL ) is consi arben a mery noriega optio n. Not Available [address], [place], [address], 08/30/2024 14:10:13 08/27/19 25 08/30/2024 PROTE IN, TOTAL AND PROTE IN ELECT ROPHO RESIS protein, total 7.6 g/dL 6.1-8. 1 normal Not Available [address] [address] [place], [address], 08/30/2024 14:10:14 08/27/1908/30/2024 PROTE IN, TOTAL AND PROTE IN ELECT ROPHO RESIS albumin 4.7 g/dL 3.8-4. 8 normal Not Available [facility] [address] [address] [place], [address], 08/30/2024 14:10:14 08/27/19 25 08/30/2024 PROTE IN, TOTAL AND PROTE IN ELECT ROPHO RESIS alpha 1 globulin 0.3 g/dL 0.2-0. 3 normal Not Available [facility] [address] [address] [place], [address], 08/30/2024 14:10:14 08/27/19 25 08/30/2024 PROTE IN, TOTAL AND PROTE IN ELECT ROPHO RESIS alpha 2 globulin 0.6 g/dL 0.5-0. 9 normal Not Available [address] [address] [place], [address], 08/30/2024 14:10:14 08/27/19 25 08/30/2024 PROTE IN, TOTAL AND PROTE IN ELECT ROPHO RESIS beta 1 globulin 0.4 g/dL 0.4-0. 6 normal Not Available [address] [address] [place], [address], 08/30/2024 14:10:14 08/27/19 25 08/30/2024 PROTE IN, TOTAL AND PROTE IN ELECT ROPHO RESIS beta 2 globulin 0.4 g/dL 0.2-0. 5 normal Not Available [address], [address], 08/30/2024 14:10:14 08/27/19 25 08/30/2024 PROTE IN, TOTAL AND [facility]OTE IN [facility] gamma globulin 1.2 g/dL 0.8-1. 7 normal Not Available [address], [address], 08/30/2024 14:10:14 08/27/19 25 08/30/2024 PROTE IN, TOTAL AND PROTE IN ELECT ROPHO RESIS interpretati on No restr icted band (M-sp myles) seen. Not Available [address] [place], [address], 08/30/2024 14:10:14 08/27/19 25 08/30/2024 PROTE IN, TOTAL AND PROTE IN ELECT ROPHO RESIS , RANDO M URINE creatinine, random urine 20 mg/dL 20-275 normal Not Available [address] [address] [place], [address], 08/30/2024 14:10:15 08/27/19 25 08/30/2024 PROTE IN, TOTAL AND PROTE IN MASHA ARBOLEDA URINE protein/crea tinine ratio 200 mg/g_ creat 24-184 high Not Available [address], [address], 08/30/2024 14:10:15 08/27/19 25 08/30/2024 PROTE IN, TOTAL AND PROTE IN MASHA ARBOLEDA URINE protein/crea tinine ratio 0.200 mg/mg _crea t 0.024- 0.184 high Not Available [address], [address], 08/30/2024 14:10:15 08/27/19 25 08/30/2024 PROTE IN, TOTAL AND PROTE IN MASHA ARBOLEDA URINE protein, total, random ur 4 mg/dL 5-24 low Verif ied by repea t moe sis. Not Available [address], [address], 08/30/2024 14:10:15 08/27/19 25 08/30/2024 PROTE IN, TOTAL AND PROTE IN MASHA ARBOLEDA URINE albumin 0 % Not Available [address], [address], 08/30/2024 14:10:15 08/27/19 25 08/30/2024 PROTE IN, TOTAL AND PROTE IN MASHA ARBOLEDA URINE [id number] ulins 0 % Not Available [facility] [address], [address], 08/30/2024 14:10:15 08/27/19 25 08/30/2024 PROTE IN, TOTAL AND PROTE IN MASHA ARBOLEDA URINE [id number] ulins 0 % Not Available [facility] [address] [address] [place], [address], 08/30/2024 14:10:15 08/27/19 25 08/30/2024 PROTE IN, TOTAL AND PROTE IN ELECT ROPHO RESIS , RANDO M URINE beta globulins 0 % Not Available [facility] [address] [address] [place], [address], 08/30/2024 14:10:15 08/27/19 25 08/30/2024 PROTE IN, TOTAL AND PROTE IN ELECT ROPHO RESIS , RANDO M URINE gamma globulins 0 % Not Available [facility] [address] [address] [place], [address], 08/30/2024 14:10:15 08/27/19 25 08/30/2024 PROTE IN, TOTAL AND PROTE IN ELECT ARNELHO RESIS , RANDO M URINE interpretati on Agaro se [facility] resis of urine revea ls that quant [...] not alrea dy order ed. Not Available [address] [address] [place], [address], 08/30/2024 14:10:15 08/27/19 25 08/30/2024 COMPR EHENS AHSAN METAB OLIC PANEL glucose 95 mg/dL 65-99 normal Fasti ng refer ence inter isaias Not Available [facility] [address] [address] [place], [address], 08/30/2024 14:10:17 08/27/19 25 08/30/2024 COMPR EHENS AHSAN METAB OLIC PANEL urea nitrogen (BUN) 13 mg/dL 7-25 normal Not Available [facility] [address] [address] [place], [address], 08/30/2024 14:10:17 08/27/19 25 08/30/2024 COMPR EHENS AHSAN METAB OLIC PANEL creatinine 0.49 mg/dL 0.50-1 .05 low Not Available [address], [address], 08/30/2024 14:10:17 08/27/19 25 08/30/2024 COMPR EHENS AHSAN METAB OLIC PANEL eGFR 103 mL/mi n/1.7 3m2 > or = 60 normal Not Available [address], [address], 08/30/2024 14:10:17 08/27/19 25 08/30/2024 COMPR EHENS AHSAN METAB OLIC PANEL BUN/creatini ne ratio 27 (calc ) 6-22 high Not Available [address], [address], 08/30/2024 14:10:17 08/27/19 25 08/30/2024 COMPR EHENS AHSAN METAB OLIC PANEL sodium 142 mmol/ L 135-14 6 normal Not Available [address], [address], 08/30/2024 14:10:17 08/27/19 25 08/30/2024 COMPR EHENS AHSAN METAB OLIC PANEL potassium 4.3 mmol/ L 3.5-5. 3 normal Not Available [address], [address], 08/30/2024 14:10:17 08/27/19 25 08/30/2024 COMPR EHENS AHSAN METAB OLIC PANEL chloride 104 mmol/ L 98-110 normal Not Available [address], [address], 08/30/2024 14:10:17 08/27/19 25 08/30/2024 COMPR EHENS AHSAN METAB OLIC PANEL carbon dioxide 29 mmol/ L 20-32 normal Not Available [address], [address], 08/30/2024 14:10:17 08/27/19 25 08/30/2024 COMPR EHENS AHSAN METAB OLIC PANEL calcium 10.1 mg/dL 8.6-10 .4 normal Not Available [address], [address], 08/30/2024 14:10:17 08/27/19 25 08/30/2024 COMPR EHENS AHSAN METAB OLIC PANEL protein, total 7.6 g/dL 6.1-8. 1 normal Not Available [address], [address], 08/30/2024 14:10:17 08/27/19 25 08/30/2024 COMPR EHENS AHSAN METAB OLIC PANEL albumin 4.7 g/dL 3.6-5. 1 normal Not Available [address], [address], 08/30/2024 14:10:17 08/27/19 25 08/30/2024 COMPR EHENS AHSAN METAB OLIC PANEL globulin 2.9 g/dL_ (calc ) 1.9-3. 7 normal Not Available [address], [address], 08/30/2024 14:10:17 08/27/19 25 08/30/2024 COMPR EHENS AHSAN METAB OLIC PANEL albumin/glob ulin ratio 1.6 (calc ) 1.0-2. 5 normal Not Available [address], [address], 08/30/2024 14:10:17 08/27/19 25 08/30/2024 COMPR EHENS AHSAN METAB OLIC PANEL bilirubin, total 0.5 mg/dL 0.2-1. 2 normal Not Available [address], [address], 08/30/2024 14:10:17 08/27/19 25 08/30/2024 COMPR EHENS AHSAN METAB OLIC PANEL alkaline phosphatase 39 U/L 37-153 normal Not Available [address], [address], 08/30/2024 14:10:17 08/27/19 25 08/30/2024 COMPR EHENS AHSAN METAB OLIC PANEL AST 18 U/L 10-35 normal Not Available [address], [address], 08/30/2024 14:10:17 08/27/19 25 08/30/2024 COMPR EHENS AHSAN METAB OLIC PANEL ALT 17 U/L 6-29 normal Not Available [address], [address], 08/30/2024 14:10:17 08/27/19 25 08/30/2024 CBC (INCL UDES DIFF/ PLT) white blood cell count 7.0 thous and/u L 3.8-10 .8 normal Not Available [address], [address], 08/30/2024 14:10:18 08/27/19 25 08/30/2024 CBC (INCL UDES DIFF/ PLT) red blood cell count 4.87 evelyn on/uL 3.80-5 .10 normal Not Available [address], [address], 08/30/2024 14:10:18 08/27/19 25 08/30/2024 CBC (INCL UDES DIFF/ PLT) hemoglobin 15.2 g/dL 11.7-1 5.5 normal Not Available [address], [address], 08/30/2024 14:10:18 08/27/19 25 08/30/2024 CBC (INCL UDES DIFF/ PLT) hematocrit 45.8 % 35.0-4 5.0 high Not Available [address], [address], 08/30/2024 14:10:18 08/27/19 25 08/30/2024 CBC (INCL UDES DIFF/ PLT) MCV 94.0 fL 80.0-1 00.0 normal Not Available [address], [address], 08/30/2024 14:10:18 08/27/19 25 08/30/2024 CBC (INCL UDES DIFF/ PLT) MCH 31.2 pg 27.0-3 3.0 normal Not Available [address], [address], 08/30/2024 14:10:18 08/27/19 25 08/30/2024 CBC (INCL UDES DIFF/ PLT) MCHC 33.2 g/dL 32.0-3 6.0 normal For adult s, a sligh t decre ase in the calcu lated MCHC value (in the range of 30 to 32 g/dL) is most likel y not clini suri wilson t; jensen er, it shoul d be inter prete d with cauti on in [facility] n with other red cell valente eters and the patie nt's clini toby condi tion. Not Available [address], [address], 08/30/2024 14:10:18 08/27/1908/30/2024 CBC (INCL UDES DIFF/ PLT) RDW 11.8 % 11.0-1 5.0 normal Not Available [address], [address], 08/30/2024 14:10:18 08/27/19 25 08/30/2024 CBC (INCL UDES DIFF/ PLT) platelet count 186 thous and/u L 140-40 0 normal Not Available [facility] [address] [address], [place], [address], 08/30/2024 14:10:18 08/27/19 25 08/30/2024 CBC (INCL UDES DIFF/ PLT) MPV 11.3 fL 7.5-12 .5 normal Not Available [address], [address], 08/30/2024 14:10:18 08/27/19 25 08/30/2024 CBC (INCL UDES DIFF/ PLT) absolute neutrophils 3668 cells /uL 1500-7 800 normal Not Available [address], [address], 08/30/2024 14:10:18 08/27/19 25 08/30/2024 CBC (INCL UDES DIFF/ PLT) absolute lymphocytes 2828 cells /uL 850-39 00 normal Not Available [address], [address], 08/30/2024 14:10:18 08/27/19 25 08/30/2024 CBC (INCL UDES DIFF/ PLT) absolute monocytes 329 cells /uL 200-95 0 normal Not Available [address], [address], 08/30/2024 14:10:18 08/27/19 25 08/30/2024 CBC (INCL UDES DIFF/ PLT) absolute eosinophils 112 cells /uL 15-500 normal Not Available [address], [address], 08/30/2024 14:10:18 08/27/19 25 08/30/2024 CBC (INCL UDES DIFF/ PLT) absolute basophils 63 cells /uL 0-200 normal Not Available [address], [address], 08/30/2024 14:10:18 08/27/19 25 08/30/2024 CBC (INCL UDES DIFF/ PLT) neutrophils 52.4 % normal Not Available [address], [address], 08/30/2024 14:10:18 08/27/19 25 08/30/2024 CBC (INCL UDES DIFF/ PLT) lymphocytes 40.4 % normal Not Available [address], [address], 08/30/2024 14:10:18 08/27/19 25 08/30/2024 CBC (INCL UDES DIFF/ PLT) monocytes 4.7 % normal Not Available [address], [address], 08/30/2024 14:10:18 08/27/19 25 08/30/2024 CBC (INCL UDES DIFF/ PLT) eosinophils 1.6 % normal Not Available [address], [address], 08/30/2024 14:10:18 08/27/19 25 08/30/2024 CBC (INCL UDES DIFF/ PLT) basophils 0.9 % normal Not Available [address], [address], 08/30/2024 14:10:18 08/27/19 25 08/30/2024 T4, FREE T4, free 1.3 NG/dL 0.8-1. 8 normal Not Available [address], [address], 08/30/2024 14:10:19 08/27/19 25 08/30/2024 TSH TSH 3.45 mIU/L 0.40-4 .50 normal Not Available [address], [address], 08/30/2024 14:10:20 08/27/19 25 08/30/2024 T3, FREE T3, free 2.8 pg/mL 2.3-4. 2 normal Not Available [address] [address] [place], [address], 08/30/2024 14:10:22 08/27/19 25 08/30/2024 PROTE IN, TOTAL AND PROTE IN MASHA ARBOLEDA URINE creatinine, random urine 20 mg/dL 20-275 normal Not Available [address] [place], [address], 08/30/2024 14:16:38 08/27/19 25 08/30/2024 PROTE IN, TOTAL AND PROTE IN MASHA ARBOLEDA URINE protein/crea tinine ratio 200 mg/g_ creat 24-184 high Not Available [address], [address], 08/30/2024 14:16:38 08/27/19 25 08/30/2024 PROTE IN, TOTAL AND PROTE IN MASHA ARBOLEDA URINE protein/crea tinine ratio 0.200 mg/mg _crea t 0.024- 0.184 high Not Available [address], [address], 08/30/2024 14:16:38 08/27/19 25 08/30/2024 PROTE IN, TOTAL AND PROTE IN [facility] MASHA SARABIA URINE protein, total, random ur 4 mg/dL 5-24 low Verif ied by repea t moe sis. Not Available [address], [address], 08/30/2024 14:16:38 08/27/19 25 08/30/2024 PROTE IN, TOTAL AND PROTE IN MASHA ARBOLEDA URINE albumin 0 % Not Available [address], [address], 08/30/2024 14:16:38 08/27/19 25 08/30/2024 PROTE IN, TOTAL AND PROTE IN [facility] MASHA SHAH URINE [id number] ulins 0 % Not Available [facility] [address] [address] [place], [address], 08/30/2024 14:16:38 08/27/19 25 08/30/2024 PROTE IN, TOTAL AND PROTE IN [facility] MASHA SHAH URINE [id number] ulins 0 % Not Available [address] [address] [place], [address], 08/30/2024 14:16:38 08/27/19 25 08/30/2024 PROTE IN, TOTAL AND PROTE IN [facility] URINE beta globulins 0 % Not Available [address] [address] [place], [address], 08/30/2024 14:16:38 08/27/19 25 08/30/2024 PROTE IN, TOTAL AND PROTE IN [facility] gamma globulins 0 % Not Available [address] [address] [place], [address], 08/30/2024 14:16:38 08/27/19 25 08/30/2024 PROTE IN, TOTAL AND PROTE IN [facility] MASHA URINE interpretati on Agaro se [facility] of urine revea ls that quant ities [...] not alrea dy order ed. Not Available [address] [address] [place], [address], 08/30/2024 14:16:38 10/16/19 24 digit al mamm unila t scree n lt [facility] [place] [address] [facility] [place] [address] Patien t Name: MARY RODRIGUEZ Access ion #: [id number] Sex: F : 1955 4 Dictat ed By: Lulú bishop Attend ing Physic duc: ZITA ROLLINS Orderi ng Physic duc: HUMBERTOZITA ROLAND Exam Date: 2023 09:31 AM Exam Name: MG DIGITA Jaime GEENA LT SCREEN Admitt ing Diagno sis(es ): CLINIC AL HISTOR Y: Screen ing exam, no breast compla ints. Person al histor y of right breast cancer status post right mastec rico. COMPAR KHOI: Prior mammog césar dated 023, 022, and 09/23/19 TECHNI QUE: Full field bilate ral digita [...] at 2023 10:01: 38 AM Page 1 [email or web address] [facility] (Imaging) [address] [place], [address], 11/15/2023 16:11:01 10/16/19 24 10/16/2023 MAMMO , scree syeda, digit al, bilat eral No observ ation record ed. [facility] [address] [place], [address], 11/15/2023 16:11:01 08/15/19 25 08/14/2024 imagi ng/di agnos tic resul t No observ ation record ed. [address] [facility], [place], [address], 08/15/2024 09:46:37 09/24/19 25 09/23/2024 imagi ng/di agnos tic resul t No observ ation record ed. [address] [facility], [place], [address], 09/23/2024 15:42:45 11/13/19 25 11/12/2024 imagi ng/di agnos tic resul t No observ ation record ed. [address] [facility], [place], [address], 11/12/2024 13:07:06 Result Notes None recorded. Problems Name Problem SNOMED Code Status Onset Date Resolution Date Notes Provider Name and Address Organization Details Recorded Time Postmenopausa l osteoporosis 677861250 Active 2021 Not Available [facility] 3 22:41:15 Non-alcoholic fatty liver 542357548 Active 2021 Not Available [facility] 3 22:41:15 Malignant tumor of breast 756366207 Active 2018 Not Available [facility] 3 22:41:15 Disorder of gallbladder 31790513 Active 2021 Not Available [facility] 3 22:41:15 Hypothyroidis m 41923933 Active 2018 Not Available [facility] 3 22:41:15 Vitamin deficiency 17462458 Active 2018 Not Available [facility] 3 22:41:15 Hypercalciuri a 94163088 Active 2022 Not Available [facility] 3 22:41:15 Essential hypertension 79145472 Active 2022 Not Available [facility] 3 22:41:15 Hyperlipidemi a 05432461 Active 2022 Not Available [facility] 3 22:41:15 Osteoporosis 81447677 Active 2022 Not Available [facility] 3 22:41:15 Visual disturbance 80950931 Active 2022 Not Available [facility] 3 22:41:15 Hypokalemia 40360883 Active 2022 Not Available [facility] 3 22:41:15 Increased liver function 18636092 Active 2022 Callie awad MD [address] [facility], [facility] [email or web address] [address], [place], [address] , [facility] 3 16:04:20 Hyperproteine maria d 91995757 Active 2023 Callie awad MD [address] [facility], [address], [place], [address] , [facility] 4 14:24:53 Problem Notes None recorded. Procedures Surgical History Date Name Laterality Status Provider Name and Address Organization Details Recorded Time 10/25/19 Medicare Wellness CPT Code, subsequent completed Mark Hernandez LPN [facility] 10/25/2023 14:21:05 12/05/19 21 Most Recent Bone Density completed Not Available [facility] 09/14/2022 02:44:51 11/03/19 21 Date of Last Colonoscopy completed Not Available [facility] 09/14/2022 02:44:51 02/14/20 19 Date of Last Pap Smear completed Not Available [facility] 09/14/2022 02:44:51 excision of right breast completed Not Available [facility] 09/14/2022 02:44:54 Breast cancer dx min invsive completed Not Available [facility] 09/14/2022 02:44:54 Imaging Results Imaging Date Name Status LastModified by Organiz ation Details LastModified Time 10/16/2023 digital mamm unilat screen lt completed [facility] (Imaging) [address] [place], [address], 11/15/2023 16:11:01 10/16/2023 MAMMO, screening, digital, bilateral completed [facility] [address] [place], [address], 11/15/2023 16:11:01 08/14/2024 imaging/diagno stic result active [address] [place] [address], [address], 08/15/2024 09:46:37 09/23/2024 imaging/diagno stic result active [address] [place] [address], [address], 09/23/2024 15:42:45 11/12/2024 imaging/diagno stic result active [address], [address], 11/12/2024 13:07:06 Procedure Notes None recorded. Medical Equipment None [...] Not Available Not Available No t Available lisinopril 10 mg tablet Take 1 tablet [...] Not Available Not Available No t Available Co Q-10 200 mg capsule Take 1 capsule every day by oral route. active Not Available Not Available No t Available levothyrox ine 03/01 completed Not Available Not Available Not Available B Complex qd 10/27 completed Not Available Not Available Not Available [place] 3 qd 07/31 completed Not Available Not [...] Not Available No t Available Fluarix Quad 5565-2500 (PF) 60 mcg (15 mcg x 4)/0.5 [...] Updated DateTime 3 157.48 cm 21.9 kg/m2 59690.0 8 g 97.7 [degF] 120 /min 156 mm[Hg] 88 mm[Hg] TORO Ching [employer] [facility] [employer] 3 14:39:34 Date Recorded Body height Body mass index (BMI) Body weight Body temperature Heart rate Systolic blood pressure Diastolic blood pressure Provider Name and Address Organization Details Last Updated DateTime 4 157.48 cm 21.9 kg/m2 63350.0 8 g 98.3 [degF] 84 /min 126 mm[Hg] 80 mm[Hg] [facility] [employer] 4 13:56:38 Date Recorded Pain severity - 0-10 verbal numeric rating [Score] - Reported Provider Name and Address Organization Details Last Updated DateTime 10/25/2023 0 Mark Hernandez LPN [employer] [facility] [employer] 10/25/2023 14:21:36 Date Recorded Body height Body mass index (BMI) Body weight Body temperature Heart rate Systolic blood pressure Diastolic blood pressure Provider Name and Address Organization Details Last Updated DateTime 4 157.48 cm 21.6 kg/m2 33583.9 g 97.9 [degF] 84 /min 138 mm[Hg] 70 mm[Hg] TORO Ching [employer] [facility] [employer] 4 14:09:24 Date Recorded Body height Body mass index (BMI) Body weight Body temperature Heart rate Respiratory rate Oxygen saturation Oxygen saturation in Arterial blood by Pulse oximetry Pain severity - 0-10 verbal numeric rating [Score] - Reported Systolic blood pressure Diastolic blood pressure Provider Name and Address Organization Details Last Updated DateTime 4 157.48 cm 21.2 kg/m2 44782.7 1 g 98.2 [degF] 96 /min 16 /min 97 % 97 % 0 146 mm[Hg] 88 mm[Hg] Mark Hernandez LPN MA [facility] [employer] [facility] 4 14:16:28 Date Recorded Body height Body mass index (BMI) Body weight Body temperature Heart rate Systolic blood pressure Diastolic blood pressure Provider Name and Address Organization Details Last Updated DateTime 5 157.48 cm 22.9 kg/m2 00638.0 5 g 97.6 [degF] 90 /min 140 mm[Hg] 80 mm[Hg] TORO Ching MA [facility] [employer] 5 14:19:08 Social History Question Answer Notes LastModified by [employer]at ion Details LastModified Time Tobacco Smoking Status Never Smoker Not Available [facility] 09/14/2022 02:41:34 Do You Have An Advance Directive? No MIGRATION.78803 32703 Information not available 09/14/2022 What Is Your Level Of Alcohol Consumption? None MIGRATION.00564 43631 Information not available 09/14/2022 Are You Blind Or Do You Have Difficulty Seeing? No MIGRATION.17119 68993 Information not available 09/14/2022 What Is Your Level Of Caffeine Consumption? Occasional MIGRATION.52485 98462 Information not available 09/14/2022 How Much Tobacco Do You Chew? None MIGRATION.88227 11303 Information not available 09/14/2022 In The 14 Days Before Symptom Onset, Have You Had Close Contact With A Laboratory-confi rmed COVID-19 While That Case Was Ill? No MIGRATION.44193 60966 Information not available 09/14/2022 In The 14 Days Before Symptom Onset, Have You Had Close Contact With A Person Who Is Under Investigation For COVID-19 While That Person Was Ill? No MIGRATION.50740 79835 Information not available 09/14/2022 Are You Deaf Or Do You Have Serious Difficulty Hearing? No MIGRATION.20352 06248 Information not available 09/14/2022 What Type Of Diet Are You Following? REGULAR MIGRATION.53378 24751 Information not available 09/14/2022 Which Illicit Or Recreational Drugs Have You Used? None MIGRATION.49025 92624 Information not available 09/14/2022 Do You Or Have You Ever Used E-cigarettes Or Vape? 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 No MIGRATION.37221 13632 Information not available 09/14/2022 What Is The Fluoride Status Of Your Home? Unknown MIGRATION.03610 51441 Information not available 09/14/2022 Are There Any Guns Present In Your Home? No MIGRATION.71853 39758 Information not available 09/14/2022 Do You Use Insect Repellent Routinely? No MIGRATION.83984 88736 Information not available 09/14/2022 Where Do You Live? SingleLevelHouse MIGRATION.04881 50981 Information not available 09/14/2022 Are You Able To Care For Yourself? Yes [email or web address] Information not available 10/25/2023 Are You Blind Or Do Yo Have Difficulty Seeing? No [email or web address] Information not available 10/25/2023 Are You Deaf Or Do You Have Serious Difficulty Hearing? No [email or web address] Information not available 10/25/2023 Live Alone Of With Others? With Others Information not available 10/25/2023 Do You Have A Medical Power Of Ceramic Tile Setter? No MIGRATION.34216 20563 Information not available 09/14/2022 What Was The Date Of Your Most Recent Tobacco Screening? 09/02/2024 [email or web address] Information not available 09/02/2024 Do You Have Any Pets? Yes MIGRATION.00490 84908 Information not available 09/14/2022 What Is Your Relationship Status? MIGRATION.73119 72924 Information not available 09/14/2022 Do You Use Your Seat Belt Or Car Seat Routinely? Yes MIGRATION.21383 78667 Information not available 09/14/2022 Do You Have Smoke And Carbon Monoxide Detectors In Your Home? Yes MIGRATION.95737 31353 Information not available 09/14/2022 Are You Passively Exposed To Smoke? Yes MIGRATION.37419 91795 Information not available 09/14/2022 Do You Or Have You Ever Used Smokeless Tobacco? Never Used Smokeless Tobacco MIGRATION.76921 67968 Information not available 09/14/2022 Are There Any Smokers In Your House? Yes MIGRATION.99282 81880 Information not available 09/14/2022 How Much Tobacco Do You Smoke? No MIGRATION.23036 07229 Information not available 09/14/2022 Do You Use Any Illicit Or Recreational Drugs? No MIGRATION.67996 15476 Information not available 09/14/2022 Do You Use Sunscreen Routinely? No MIGRATION.13673 66224 Information not available 09/14/2022 Has Tobacco Cessation Counseling Been Provided? No N/a MIGRATION.18351 75532 Information not available 09/14/2022 Have You Recently Traveled Abroad? No MIGRATION.10611 39320 Information not available 09/14/2022 Do You Have Any Dietary Restrictions? No MIGRATION.12803 44183 Information not available 09/14/2022 Do You Or Have You Ever Used Any Other Forms Of Tobacco Or Nicotine? No MIGRATION.92245 06918 Information not available 09/14/2022 Sex: Female Functional Status Question Answer Note LastModified by Organizat ion Details LastModified Time Do you have difficulty walking or climbing stairs? No MIGRATION.6059180 026 Information not available 09/14/2022 Do you have transportation difficulties? No MIGRATION.7761234 026 Information not available 09/14/2022 Are you able to walk? YESWOREST MIGRATION.5341494 026 Information not available 09/14/2022 Do you have difficulty doing errands alone? No MIGRATION.2125653 026 Information not available 09/14/2022 Are you able to care for yourself? Yes MIGRATION.3583843 026 Information not available 09/14/2022 Do you have difficulty dressing or bathing? No MIGRATION.3044778 026 Information not available 09/14/2022 What is your exercise level? Occasional MIGRATION.7112700 026 Information not available 09/14/2022 Mental Status Question Answer Note LastModified by Organizat ion Details LastModified Time Do you have difficulty concentrating, remembering or making decisions? No MIGRATION.[id number] 6 Information not available 09/14/2022 Family History Relationship Description Onset Age of this Age Resolved Age Notes LastModified by Organization Details LastModified Time Father Diabetes mellitus MIGRATION.[id number] Not available 09/14/2022 02:45:00 Medical History Condition Response HIGH CHOLESTEROL / HYPERLIPIDEMIA Y HYPERTHYROIDISM Y EYE PROBLEMS Y BREAST PROBLEMS Y USE OF BLOOD THINNERS Y CANCER: SPECIFY Y Gynecological History Statement/Question Response Abnormal Pap [...] high-dose, quadrivalent, PF 2 completed Not Available [facility] 02/22/2023 22:41:15 COVID-19, mRNA, LNP-S, PF, 100 mcg/0.5mL dose or 50 mcg/0.25mL dose 1 completed TORO Ching null, [facility] 01/17/2024 12:15:05 COVID-19, mRNA, LNP-S, PF, 100 mcg/0.5mL dose or 50 mcg/0.25mL dose 1 completed Not Available [facility] 02/22/2023 22:41:15 Influenza, split virus, quadrivalent, preservative 9 completed Not Available [facility] 02/22/2023 22:41:15 Influenza, split virus, trivalent, preservative 1 completed Not Available [facility] 02/22/2023 22:41:15 Influenza, split virus, quadrivalent, preservative 0 completed PAULA ChingA null, [facility] 01/17/2024 12:15:04 Influenza, high-dose, trivalent, PF 7 completed PAULA ChingA null, [facility] 01/17/2024 12:15:05 pneumococcal polysaccharide PPV23 3 completed Not Available [facility] 02/22/2023 22:41:15 Pneumococcal conjugate PCV 13 1 completed TORO Ching, [facility] 01/17/2024 12:15:05 Influenza, recombinant, quadrivalent, PF 0 completed Candace Quezada RMA null, [facility] 01/17/2024 12:15:05 Influenza, high-dose, quadrivalent, PF 2 completed Candace Quezada RMA null, [facility] 01/17/2024 12:15:05 COVID-19, mRNA, LNP-S, PF, 100 mcg/0.5mL dose or 50 mcg/0.25mL dose 1 completed Candace Quezada RMA null, [facility] 01/17/2024 12:15:05 COVID-19, mRNA, LNP-S, PF, 100 mcg/0.5mL dose or 50 mcg/0.25mL dose 1 completed [facility] 12:15:05 COVID-19, mRNA, LNP-S, bivalent, PF, 50 mcg/0.5 mL or 25mcg/0.25 mL dose 2 completed Candace Quezada RMA null, [facility] 01/17/2024 12:15:05 Influenza, split virus, trivalent, PF 5 completed Candace Quezada RMA null, [facility] 01/17/2024 12:15:05 Influenza, split virus, quadrivalent, PF 7 completed Candace Quezada RMA null, [facility] 01/17/2024 12:15:05 Influenza, split virus, quadrivalent, PF 8 completed Candace Quezada RMA null, [facility] 01/17/2024 12:15:05 Influenza, split virus, quadrivalent, PF 6 completed Candace Quezada RMA null, [facility] 01/17/2024 12:15:05 Influenza, split virus, quadrivalent, PF 9 completed Candace Quezada RMA null, [facility] [employer] [facility] 01/17/2024 12:15:05 Influenza, split virus, quadrivalent, PF 1 completed Candace Quezada RMA null, [facility] [employer] [facility] 01/17/2024 12:15:05 Influenza, high-dose, quadrivalent, PF 3 completed Candace Quezada RMA null, [facility] [employer] [facility] 09/02/2024 14:16:21 COVID-19, mRNA, LNP-S, PF, 50 mcg/0.5 mL 3 completed Candace Quezada RMA null, [facility] [employer] [facility] 09/02/2024 14:16:21 Past Encounters Encounter ID Performer Location Encounter Start Date Encounter Closed Date Diagnosis/Indication Diagnosis SNOMED-CT Code Diagnosis ICD10 Code Diagnosis Note [id number] [facility] [address] [place] [address] 09/28/2020 00:00:00 10/01/2020 10:13:27 [id number] _ATHENA_M IGRATION_ DEFAULT_1 _1 , 10/26/2020 00:00:00 10/26/2020 16:51:50 [id number] [facility] [place] [address] [place] [address] 01/25/2021 00:00:00 01/25/2021 17:42:10 [id number] [facility] [place] [address] [place] [address] 02/02/2021 00:00:00 02/02/2021 14:57:04 [id number] [place] [address] 03/01/2021 00:00:00 03/15/2021 09:20:35 [id number] [place] [address] 09/01/2021 00:00:00 09/30/2021 18:13:07 [id number] [facility] [place] [address] [place] [address] 09/03/2021 00:00:00 09/03/2021 21:18:29 [id number] [facility] [place] [address] [place] [address] 09/20/2021 00:00:00 09/20/2021 21:03:50 [id number] [facility] Internal [facility] [place] krishna [address] , [place] [address] 03/02/2022 00:00:00 05/15/2022 12:53:35 [id number] [facility] [place] [address] [place] [address] 03/04/2022 00:00:00 03/04/2022 15:12:26 [id number] [facility] [place] [address] [place] [address] 04/01/2022 00:00:00 04/02/2022 18:11:21 [id number] [facility] General Surgery [address] , [facility] [[email or web address] [address] [place] [address] 05/10/2022 00:00:00 05/10/2022 14:28:12 [id number] [facility] Internal [facility] Dee krishna [address] , [place] [address] 08/10/2022 00:00:00 08/10/2022 17:26:22 [id number] Le De Los Santos MD [facility] [place] [address] [place] [address] 10/27/2022 12:24:51 10/27/2022 13:07:12 Hypothyroidism 70307221 E03.9 TSH and FT4 in ideal range- [...] and reduce inflammati on. Postmenopa usal osteoporosis 753539842 M81.0 Due for repeat bone density scan this May- last prolia injection was in Mar 2022- she wants to hold off on further injections until she has completed her bone density scan. Her urine calcium was not at goal range- encouraged patient to go back on KPhos as she is on high dose hctz with minimal urine calcium reduction/ loss. Goal under 200 mg/24 hour She is aware to restart with meals to help with tolerabili ty. If she has no improvemen t in her bone density we will need to resume prolia injections . Hypercalciuria 86050241 R82.994 Send for repeat 24 hour urinary [...] she choses to go outside of the [facility] to obtain labwork she was [...] in her case. She voiced understand ing. [id number] Malu Narvaez [facility] Internal Med Dee krishna [address] [facility] y , [place] [address] 02/06/2023 14:25:10 02/06/2023 15:33:53 Screening - NAD 974764722 Z13.9 C-scope: 11/06/2020 : Dr Madison, next 10 years Mammogram: Last was in 11/01, is scheduled for this in [facility] 021: Neg 022: Neg 023: Neg [...] understand ing of the above Essential hypertension 89794675 I10 ECHO 06/27/18: WNL On ASAOn HCTZ 25mg dailyOn lisinopril 10mg dailyGet labs [facility] Dr Raygoza 10/19/2020 , f/u in one year Hyperlipidemia 59464440 E78.5 On fenofibrat e Does wellGet labs Screening for malignant neoplasm of breast 683467391 Z12.[address] Alatorre, in [facility], next apt is in 04/03 OV 04/04/18:O n Reji s to see Dr Alatorre in 10/02 OV 06/13/18:S ees Dr Alatorre in 10/02 OV 08/01/18:I s seeing oncologist Addendum:0 09/20/18: Dr Papo Riggs is to continue with the tamoxifen and to also get a DEXA, next apt is in 6 months OV 11/21/18:F /u with oncologist On tamoxifen OV 02/20/19:S ees oncologist next month 03/28/19On tamoxifen Addendum: 04/06/19:N Robbin Knutson 04/03/19: to continue with the tamoxifen OV 07/31/2019 :On tamoxifenS ees Dr Riggs in 09/2019 in [facility] Addendum: 10/06/2019 : 0: Dr Riggs [...] :On tamoxifen 20mg dailyFille d by Dr Parnell OV 03/02/2022 :On tamoxifenS ees oncologist OV 08/10/2022 :On tamoxifen, sees her oncologist , referred OV 02/06/2023 :On tamoxifen, sees her oncologist Hypothyroidism 30760603 E03.9 On euthyrox 50mcgs daily Does wellGet labs Sees Dr De Los Santos, 03/04/2022 Osteoporosis 16652547 M8 1.[address] De Los Santos, s/p prolia on 02/02/[address] De Los Santos Visual disturbance 04145 001 H53.9 Get on US liver, GGT and hepatitis panel US liver 03/09/2022 : Fatty liver, see case 03/14/[address] Pang 05/10/2022 : No surgery Hypokalemia 57518006 E87 .6 Get labs [id number] Le De Los Santos MD [facility] [place] [address] [place] [address] 02/27/2023 12:03:15 02/27/2023 12:58:18 Hypothyroidism 30848310 E03.9 TSH and FT4 in ideal range- [...] and reduce inflammati on. Postmenopa usal osteoporosis 794270761 M81.0 Will continue on prolia injections - she has a refill at her pharmacy and will reach out - we can complete in Mar. Hypercalciuria 46013906 R82.994 Repeat 24 hour urinary calcium was [...] answered and refills necessary at visit today. [id number] Callie awad MD [facility] Internal [facility] Dee krishna [address] [facility] y , [facility] [place] [address] 06/26/2023 14:20:17 06/26/2023 15:23:27 Screening - NAD 389434081 Z13.9 C-scope: 11/06/2020 : Dr Madison, next 10 years Mammogram: Last was in 11/01, is scheduled for this in [facility] 021: Neg 022: Neg 023: Neg [...] understand ing of the above Essential hypertension 67272725 I10 ECHO 06/27/18: WNL On ASAOn HCTZ 25mg dailyOn lisinopril 10mg dailyGet labs [facility] Dr Raygoza 10/19/2020 , f/u in one year Hyperlipidemia 26160406 E78.5 Not on fenofibrat eCan d/c this as LFT is elevated, more diet and exercise Does wellGet labs Screening for malignant neoplasm of breast 471546323 Z12.[address] Alatorre, in [facility] Sees Dr Alatorre in 10/0209/20/18: Dr Papo Riggs is to continue with the tamoxifen and to also get a DEXA, next apt is in 6 months BATTERY ENGINEER Raife 04/03/19: to continue with the tamoxifen 09/26/2019 : Dr Riggs and fellow Dr Rosaura Najera: to continue with the tamoxifen 10 years, and f/u in 6 months, also to take ca and vit d 2000IU daily On tamoxifen 20mg dailyFille d by Dr Parnell Hypothyroidism 90721979 E03.9 On euthyrox 50mcgs daily Does wellGet labs Seen Dr De Los Santos will refer 06/26/[address] Malin Osteoporosis 93598462 M8 1.[address] De Los Santos, s/p prolia on 02/02/2021 Increased liver function 00555006 R94.5 Get on US liver, GGT and hepatitis panel US liver 03/09/2022 : Fatty liver, see case 03/14/[address] Pang 05/10/2022 : No surgery Screening mammography 24 600083 Z12.31 [id number] Callie awad MD [facility] Internal Med Dee krishna [address] [facility] [address] [facility] [place] [address] 10/25/2023 13:43:04 10/25/2023 14:45:46 Screening - NAD 597497209 Z13.9 C-scope: 11/06/2020 : Dr Madison, next [...] understand ing of the above Essential hypertension 20576490 I10 ECHO 06/27/18: WNL On ASAOn HCTZ 25mg dailyNot on lisinopril 10mg dailyGet labs [facility] Dr Raygoza 10/19/2020 , f/u in one year Hyperlipidemia 73825393 E78.5 Not on fenofibrat eCan d/c this as LFT is elevated, more diet and exerciseGe t on atorvastat in 20mg daily, 10/25/2023 , all side effects explained to her and her Does wellGet labs Screening for malignant neoplasm of breast 598448438 Z12.[address] Alatorre, in [facility] Sees Dr Alatorre in 10/0209/20/18: Dr Papo Riggs is to continue with the tamoxifen and to also get a DEXA, next apt is in 6 months BATTERY ENGINEER Raife 04/03/19: to continue with the tamoxifen 09/26/2019 : Dr Riggs and fellow Dr Rosaura Najera: to continue with the tamoxifen 10 years, and f/u in 6 months, also to take ca and vit d 2000IU daily On tamoxifen 20mg dailyFille d by Dr Parnell Hypothyroidism 03985767 E03.9 On euthyrox 50mcgs daily Does wellGet labs Seen Dr De Los Santos will refer 06/26/[address] Malin Osteoporosis 78818614 M8 1.[address] De Los Santos, s/p prolia on 02/02/2021 Increased liver function 44579241 R94.5 GGT/Hepati tis panel: Neg 04/20/2022 US liver 03/09/2022 : Fatty liver, see case 03/14/[address] Pang 05/10/2022 : No surgery Adult heal th examination 739923956 Z00.00 Screening for disorder 703223935 Z13.9 [id number] Callie awad MD [facility] Internal Med Dee krishna [address] [facility] [place] [address] 01/22/2024 13:48:47 01/22/2024 14:49:52 Screening - NAD 311993192 Z13.9 C-scope: 11/06/2020 : Dr Madison, next 10 years Mammogram: Last was in 11/01, is scheduled for this in [facility] 021: Neg 022: Neg 023: Neg [...] understand ing of the above Essential hypertension 47011844 I10 ECHO 06/27/18: WNL On ASAOn HCTZ 25mg dailyNot on lisinopril 10mg dailyGet labs [facility] Dr Raygoza 10/19/2020 , f/u in one year Hyperlipidemia 02850984 E78.5 Not on fenofibrat eCan d/c this as LFT is elevated, more diet and exerciseGe t on atorvastat in 20mg daily, 10/25/2023 , all side effects explained to her and her Does wellGet labs Screening for malignant neoplasm of breast 482897562 Z12.[address] Alatorre, in [facility] Sees Dr Alatorer in 10/0209/20/18: Dr Papo Riggs is to continue with the tamoxifen and to also get a DEXA, next apt is in 6 months BATTERY ENGINEER Raife 04/03/19: to continue with the tamoxifen 09/26/2019 : Dr Riggs and fellow Dr Rosaura Najera: to continue with the tamoxifen 10 years, and f/u in 6 months, also to take ca and vit d 2000IU daily On tamoxifen 20mg dailyFille d by Dr Parnell Hypothyroidism 73389413 E03.9 On euthyrox 50mcgs daily Does wellGet labs Seen Dr De Los Santos will refer 06/26/[address] Malin, referred again 01/22/2024 Osteoporosis 70602325 M8 1.[address] De Los Santos, s/p prolia on 02/02/2021 Increased liver function 59393295 R94.5 GGT/Hepati tis panel: Neg 04/20/2022 US liver 03/09/2022 : Fatty liver, see case 03/14/[address] Pang 05/10/2022 : No surgery Adult heal th examination 239773495 Z00.00 Screening for disorder 481254983 Z13.9 [id number] Callie awad MD [facility] [address] [place] [address] 05/27/2024 14:04:50 05/27/2024 14:50:19 Screening - NAD 371838274 Z13.9 C-scope: 11/06/2020 : Dr Madison, next 10 years Mammogram: Last was in 11/01, is scheduled for this in [facility] 021: Neg 022: Neg 023: Neg [...] understand ing of the above Essential hypertension 45834141 I10 ECHO 06/27/18: WNL On ASAOn HCTZ 25mg dailyNot on lisinopril 10mg dailyGet labs [facility] Dr Raygoza 10/19/2020 , f/u in one yearReferr ed 05/27/2024 again Hyperlipidemia 75719235 E78.5 Not on fenofibrat eCan d/c this as LFT is elevated, more diet and exerciseOn atorvastat in 20mg daily Does wellGet labs Screening for malignant neoplasm of breast 293737783 Z12.[address] Alatorre, in [facility] Sees Dr Alatorre in 10/0209/20/18: Dr Papo Riggs is to continue with the tamoxifen and to also get a DEXA, next apt is in 6 months BATTERY ENGINEER Raife 04/03/19: to continue with the tamoxifen 09/26/2019 : Dr Riggs and fellow Dr Rosaura Najera: to continue with the tamoxifen 10 years, and f/u in 6 months, also to take ca and vit d 2000IU daily On tamoxifen 20mg dailyFille d by Dr Parnell on 02/29/2024 Hypothyroidism 45217133 E03.9 On euthyrox 50mcgs daily Does wellGet labs Seen Dr De Los Santos will refer 06/26/[address] Malin, referred again 01/22/2024 , 05/27/2024 Osteoporosis 57743236 M8 1.[address] De Los Santos, s/p prolia on 02/02/2021 Increased liver function 57373899 R94.5 GGT/Hepati tis panel: Neg 04/20/2022 US liver 03/09/2022 : Fatty liver, see case 03/14/[address] Pang 05/10/2022 : No surgeryRep eat the US liver Hypokalemia 58370151 E87 .6 Get labsGet on K Hyperproteinemia 4144025 9 E88.09 Get UPEP and SPEP [id number] MD REINIER Jean Baptiste[facility] Primary Care [facility] [address] [facility] [address] [place] [address] 09/02/2024 14:05:27 09/02/2024 15:24:19 Screening - NAD 279110970 Z13.9 C-scope: 11/06/2020 : Dr Madison, next 10 years Mammogram: Last was in 11/01, is scheduled for this in [facility] 021: Neg 022: Neg 023: Neg [...] understand ing of the above Essential hypertension 49657661 I10 ECHO 06/27/18: WNL On ASAOn HCTZ 25mg dailyNot on lisinopril 10mg dailyGet labs [facility] Dr Raygoza 10/19/2020 , f/u in one yearReferr ed 05/27/2024 again Hyperlipidemia 94784692 E78.5 Not on fenofibrat eCan d/c this as LFT is elevated, more diet and exerciseOn atorvastat in 20mg daily Does wellGet labs Screening for malignant neoplasm of breast [id number] Z12.[address] Alatorre, in [facility] Sees Dr Alatorre in 10/0209/20/18: Dr Papo Riggs is to continue with the tamoxifen and to also get a DEXA, next apt is in 6 months BATTERY ENGINEER Raife 04/03/19: to continue with the tamoxifen 09/26/2019 : Dr Riggs and fellow Dr Rosaura Najera: to continue with the tamoxifen 10 years, and f/u in 6 months, also to take ca and vit d 2000IU daily On tamoxifen 20mg dailyFille d by Dr Parnell on 02/29/2024 Hypothyroidism 00245896 E03.9 On euthyrox 50mcgs daily Does wellGet labs Seen Dr De Los Santos will refer 06/26/[address] Malin, referred again 01/22/2024 , 05/27/2024 Dr Colmenares 06/11/2024 Osteoporosis 24380443 M8 1.[address] De Los Santos, s/p prolia on 02/02/2021 Increased liver function [id number] R94.5 GGT/Hepati tis panel: Neg 04/20/2022 US liver 03/09/2022 : Fatty liver, see case 03/14/[address] Pang 05/10/2022 : No surgeryRep eat the US liver Screening mammography 24 814949 Z12.31 Screening for osteoporosis [id number] Z13.820 Health Concerns Section Related Observation LastModified by Organization Detai ls LastModified Time None Recorded Concern Status LastModified by Organization Details LastModified Time None Recorded Advance Directives Directive N: Payers Encounter Date Sequence Insurance Name Policy Number Policy Muñiz Covered Member ID Muñiz Member ID Guarantor Name 06/26/2023 1 [facility] (MEDICARE REPLACEMENT/AD VANTAGE - HMO) [id number] Eunhee K Ryoo [id number] Eunhee Ryoo 06/26/2023 2 [place]ARE OR MEDICARE REPLACEMENT PRIMARY) Eunhee Ryoo [id number] Eunhee Ryoo 10/25/2023 1 [facility] (MEDICARE REPLACEMENT/AD VANTAGE - HMO) [id number] Eunhee K Ryoo [id number] Eunhee Ryoo 10/25/2023 2 [place] OR MEDICARE REPLACEMENT PRIMARY) Eunhee Ryoo [id number] Eunhee Ryoo 01/22/2024 1 [employer] (MEDICARE REPLACEMENT/AD VANTAGE - HMO) [id number] Eunhee K Ryoo [id number] Eunhee Ryoo 01/22/2024 2 [place] OR MEDICARE REPLACEMENT PRIMARY) Eunhee Ryoo [id number] Eunhee Ryoo 05/27/2024 1 [facility] (MEDICARE REPLACEMENT/AD VANTAGE - HMO) [id number] Eunhee K Ryoo [id number] Eunhee Ryoo 05/27/2024 2 [place] OR MEDICARE REPLACEMENT PRIMARY) Eunhee Ryoo [id number] Eunhee Ryoo 09/02/2024 1 [facility] (MEDICARE REPLACEMENT/AD VANTAGE - HMO) [id number] [facility] K Ryoo [id number] Eunhee Ryoo 09/02/2024 2 [place] WHEN [place]ICARE OR MEDICARE REPLACEMENT PRIMARY) Eunhee Ryoo [id number] [facility] Ryoo Notes Date Note Type Note Provider [...] and MWVScammie is here with her , feels Keyur did do the labs OV 08/10/2022:Here [...] did do her labs Callie Teixeira MD [address] [place] [address], [address], [place], [address], [place] [facility] 06/26/2023 18:38:21 10/25/2023 text/html Here to yoselin Morales: Dr Bashir last OV this 2017 Past [...] and MWVScammie is here with her , feels Keyur did do the labs OV 08/10/2022:Here [...] is here with her Callie Teixeira MD [address] [place] [address], [facility] [[email or web address] [address], [place], [address], [place] [facility] [employer] 10/25/2023 16:29:39 01/22/2024 text/html Here to yoselin millerPMD: Dr Bashir last OV this 2017Pa [...] today, here with her Callie Teixeira MD [address], [address], [place], [address], [place] [facility] [place] [employer] [facility] 02/05/2024 14:29:35 05/27/2024 text/html Here to yoselin millerPMD: Dr Bashir last OV this 2017Pa [...] did do the labs Callie Teixeira MD [address] [place] [address], [facility] [[email or web address] [address], [place], [address], [facility] [employer] 05/27/2024 14:46:28 09/02/2024 text/html Here to yoselin millerPMD: Dr Bashri last OV this Hx:HypothyroidismBre ast cancerReviewed social [...] here with her today Callie Teixeira MD [address] [facility], [address], [place], [address], [facility] 09/02/2024 16:16:00 OBGyn Episode No OBEpisode recorded.
--- OUTSIDE RECORDS SUMMARY | 2024-11-12 12:15 | XMS_ITS | Clinical Summary ---
Author Organization [facility] Address [address] [facility] [place] [address] Phone Care Team Providers Care Curing Press Maintainer Name Role Phone Unavailable Primary Care Provider Unavailabl e Allergies No known active allergies Medications denosumab (PROLIA) 60 mg/mL Syringe Inject 1 mL (60 mg) by subcutaneous injection every 6 months. 1 mL 09/06/2021 4:31 PM TRANSPORTATION MAINTENANCE OPERATOR 2 Active denosumab (Prolia) 60 mg/mL Syringe [...]
--- OUTSIDE RECORDS SUMMARY | 2024-11-12 12:16 | XMS_ITS | Encounter Summary ---
Author Organization 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
--- OUTSIDE RECORDS SUMMARY | 2024-11-12 12:16 | XMS_ITS | Clinical Summary ---
Author Organization [facility] Address [address] [facility] [place] [address] Care Team Providers Care Sandstone Splitter Name Role Phone Warner Bashir DO Primary Care Provider Source Comments [facility],non-owned Affiliates and Associated Physician Practices is amultiple site organization consisting of ambulatory clinics and hospital sitesin [place], [place], [place] and [place]. This disclosure is being madepursuant to the Care Everywhere program and may not contain all information available regarding this patient. Last updated 18.[facility] [place] Allergies No known active allergies Medications * Be aware that medications may not be up to date on this document. Alwaysverify current medications with the patient. 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 Gender Identity Not on file Sexual Orientation Not on file Last Filed Vital Signs Vital Sign Reading Time Taken Comments Blood Pressure 145/92 05/22/2018 2:43 PM SALES ACCOUNT DIRECTOR Pulse 102 05/22/2018 2:43 PM SALES ACCOUNT DIRECTOR Temperature - - Respiratory Rate - - [...] VACCINE (1 of 2) 12/03/2005 COVID-19 VACCINE ( - 2023-2 5 season) 2024 DEPRESSION SCREENING 07/17/2024 INFLUENZA VACCINE (Season Ended) 2025 Respiratory Syncytial Virus (RSV) Vaccine Pt: or [...] to complete this topic MENINGOCOCCAL (Group B) VACC INE SHARED DECISION-MAKING Aged Out No longer eligibl e based on patient's age to complete this topic MENINGOCOCCAL GROUPS A/C/Y/W VACCINE Aged Out No longer eligible b ased on patient's age to complete this topic Insurance [facility] MANAGED MEDICARE ADV Care Teams Sandstone Splitter Relationship Specialty Start Date End Date Warner Bashir DO PCP - General 09/23/16
--- OUTSIDE RECORDS SUMMARY | 2024-11-12 12:16 | XMS_ITS | Encounter Summary ---
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
--- OUTSIDE RECORDS SUMMARY | 2024-11-12 12:16 | XMS_ITS | CONTINUITY OF CARE DOCUMENT ---
Author Name aris hurst Address Unknown Organization [facility] Address [address] [facility] [address] [place] [address] Phone [phone] Care Team Providers Care Supervisor Felting Name Role Phone Jaret PRICE, Jonathan Unavailable [...] In-person encounter Office Visit Jonathan Raygoza MD [facility] HTN essentialHypertriglyceridemia - In-person encounter Office Visit Jonathan Raygoza MD [facility] - In-person encounter Office Visit Jonathan Raygoza MD [facility] Cardiology examinationBreast cancerFatig ue - In-person encounter Office Visit Jonathan Raygoza MD [facility] HTN essential - In-person encounter Office Visit Jonathan Raygoza MD [facility] Tachycardia, unspecifiedHypothyroidismHyperlipidemia VITAL SIGNS Date Observation [...] Fermin Raygoza MD pulse rate 89 /min [facility] oxygen saturation, oximetry 98 % Latha Block blood pressure, diastolic 88 mm[Hg] Br ittany Block blood pressure, systolic 130 mm[Hg] Trice ttany Block weight E&M 118 [lb_av] Latha Block blood pressure, resting No Brit mary Block respiratory rate E&M 16 /min [facility] E&M 62 [in_i] Latha Block Body Mass Index (Ratio) 23.77 kg/m2 Fermin Raygoza MD blood pressure, diastolic 80 mm[Hg] Tao fontaine Luke blood pressure, systolic 138 mm[Hg] Darlene Luke oxygen saturation, oximetry 96 % Helene Luke respiratory rate E&M 16 /min [place] Luke pulse rate 99 /min [place] Luke weight E&M 130 [lb_av] Helene Luke height E&M 62 [in_i] Helene Luke [...] Estrella Jannie height E&M 62 [in_i] Estrella [place] Body Mass Index (Ratio) 23.41 kg/m2 Fermin Raygoza MD blood pressure, cuff size small Cy gabriel Limon blood pressure, diastolic 78 mm[Hg] Cy gabriel Limon blood pressure, systolic 140 mm[Hg] Heather poe Braxton oxygen saturation, oximetry 98 % Isidra Limon respiratory rate E&M 16 /min Isidra Limon pulse rate 89 /min Isidra Guardado l weight E&M 128 [lb_av] Isidra Marquezbel [...] High 5 cholesterol, serum 187 mg/dL [facility] [phone]/04/0 9 thyroid stimulating hormone, serum 4.240 u[IU]/mL [facility] 0.450-4.500 9 c-reactive protein, quantitative, serum 1.03 mg/L [facility] 0.00-3.00 9 lipoprotein, beta, serum, point, quantitative, calculated 63 mg/dL [facility] 0-99 9 very low density lipoproteins 43 mg/dL [facility] 5-40 High 9 HDL cholesterol, serum 47 mg/dL [facility] >39 9 triglyceride, serum, random 217 mg/dL [facility] 0-149 High 9 cholesterol, serum 153 mg/dL [facility] 189-453 3827/04/0 9 calcium, serum 9.6 mg/dL [facility] 8.7-10.3 [...] 0.57-1.00 9 urea nitrogen, blood 12 mg/dL [facility] 8-27 9 blood glucose, random 94 mg/dL [facility] 65-99 9 platelet count 200 X10E3/UL [facility] [phone]/04/0 9 red blood cell distribution width 17.7 [...] TABLET active daily Isidra Limon VITAMIN D3 88851 UNIT ORAL TABLET active take 1 tab once weekly [facility] B COMPLEX ORAL TABLET active take 1 tab daily [facility] ASPIRIN ADULT LOW DOSE 81 MG ORAL TABLET DELAYED RELEASE active take 1 tab daily [facility] MAGNESIUM 500 MG ORAL TABLET active take 1 tab daily [facility] OMEGA-3/D-3 WELLNESS PACK 1 & 1000 GM & UNIT ORAL KIT active take 1 tab daily [facility] CALCIUM + D3 TABLET active take 1 tab daily [facility] MULTIVITAMIN ADULT ORAL TABLET active take 1 tab once daily [facility] TAMOXIFEN CITRATE 20 MG ORAL TABLET [...] Payer name Policy type / Coverage type Hana red democrat ID [employer] 2 (HMO-POS) Medicare [id number] [facility] Medicaid 2 [id number] ADVANCE DIRECTIVES Name Date DISCUSSED - NO [...] 48 Mg Oral Tablet (Fenofibrate) ..... Daily [place]-3/d-3 Wellness Pack 1 & 1000 Gm & Unit Oral Kit (Tfzor-0-gnrs ethyl esters & d3) ..... Take 1 [...] 48 Mg Oral Tablet (Fenofibrate) ..... Daily Madison-3/d-3 Wellness Pack 1 & 1000 Gm & Unit Oral Kit (Ucyea-4-cksx ethyl esters & d3) ..... Take 1 tab daily Pravastatin Sodium 20 Mg Oral Tablet (Pravastatin sodium) ..... Take 1 tablet daily Jonathan Raygoza MD Cardiology follow up Jonathan blair MD Cardiology follow up Jonathan blair MD Cardiology: f marleny with PCP Deon CALDERON Her updated medication list for this problem [...] updated medication list for this problem includes: Madison-3/d-3 Wellness Pack 1 & 1000 Gm & Unit Oral Kit (Cceej-5-ydsn ethyl esters & d3) ..... Take 1 [...] MD Cardiology: cookie farmer with PCP Jonathan Raygoza MD Cardiology: leann whiting lipid panel now. Her updated medication list for this problem includes: Madison-3/d-3 Wellness Pack 1 & 1000 Gm & Unit Oral Kit (Fenrh-0-rkwv ethyl esters & d3) ..... Take 1 [...] Patie nt : O rders: E KG (CPT-95866) C omplete Echo (CPT-28922) M obile Cardiac Tele (CPT-37866) P ROBNP, N TERMINAL ([id number]) D -DIMER, QUANTITATIVE (4453) T SH, 3RD GENERATION W/REFLEX TO FT4 (41914) S ED RATE BY MODIFIED WESTERGREN (809) [...]
--- OUTSIDE RECORDS SUMMARY | 2024-11-12 12:16 | XMS_ITS | Encounter Summary ---
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
== END 2024-11-12 10:51 | disposition home or self-care (01) ==
PROVIDERS: PCP Internal Medicine; Visit Provider Internal Medicine
DX: R94.5 Abnormal results of liver function studies (principal)
CPT/HCPCS: 76705